=== PATIENT | male | born 1955 | race Caucasian/White ===

== ENCOUNTER 2016-05-07 23:44 | Observation (INO) ==
[2016-05-07] MEDS ORDERED: Aspirin 81 MG TAB.CHEW PO ONE (23:52)
[2016-05-08 00:07] LABS: Basophils # 0.1 K/mcL (0.0-0.2); Basophils % 0.6 %; Eosinophils # 0.7 K/mcL (0.0-0.6); Eosinophils % 6.8 %; Hematocrit 51.5 % (37.5-50.1); Hemoglobin 17.7 g/dL (12.9-16.9); Immature Granulocytes % 0.3 % (0-4); Lymphocytes # 2.4 K/mcL (0.6-4.6); Mean Corpuscular HGB Conc 34.4 g/dL (31.6-35.5); Mean Corpuscular Hemoglobin 32.1 pg (28.0-33.3); Mean Corpuscular Volume 93.5 fL (83.0-100.0); Mean Platelet Volume 9.9 fL (9.4-12.4); Monocytes # 1.1 K/mcL (0.0-1.3); Neutrophils # 5.4 K/mcL (1.6-8.9); Platelet Count 240 K/mcL (140-400); Red Blood Count 5.51 M/mcL (4.19-5.50); Red Cell Distribution Width 12.6 % (11.5-14.5); Segmented Neutrophils % 56.3 %
[2016-05-08 00:12] LABS: INR 1.1
[2016-05-08 00:14] LABS: Activated Partial Thrombo Time 32.6 Seconds (26.0-36.0)
[2016-05-08 00:18] LABS: BUN/Creatinine Ratio 18 (6-26); Blood Urea Nitrogen 21 mg/dL (8-26); Calcium 9.6 mg/dL (8.6-10.8); Carbon Dioxide 27 mEq/L (19-29); Chloride 102 mEq/L (98-109); Glucose 119 mg/dL (70-99); Osmolality,Calculated 294 (280-300); Potassium 3.5 mEq/L (3.5-4.5); Sodium 140 mEq/L (136-145); eGFR For African Americans > 60 (> 60); eGFR For Non-African Americans > 60 (> 60)
--- NOTE | 2016-05-08 00:50 | Emergency Department Note ---
Disposition Clinical Impression: New onset atrial fibrillation, Atrial fibrillation with rapid ventricular response Disposition: Admitted As Inpatient Condition: Fair Time of Disposition: 04:20 Chest Pain HPI - General Chief Complaint: ED Chest Pain Stated Complaint: CP/HOMERO Time Seen by Provider: 05/07/16 23:50 Source: patient, EMS Mode of arrival: EMS Limitations: no limitations Vital Signs Reviewed: Yes Nursing Notes Reviewed: Yes - History of Present Illness HPI Narrative: patient brought to the ED by EMS after having shortness of breath, heart racing , and chest pain at home. He states he put his home oxygen on around 9pm thinking this would help but he continued to have shortness of breath. States his chest felt like someone was sitting on top of him. States a few days ago he had a similar incident, thought maybe he had had a small stroke, but symptoms passed within 15 mins, and he did not seek medical attention. His heart rate has been elevated in the past, but he isn't sure the last episode. Pt complaint: chest pain, other (shortness of breath, elevated heart rate) Duration: gradually worsening Onset: during rest Pain Location: substernal Severity: severe Severity scale (1-10): 9 Quality: tightness, heaviness Pain Radiation: none Improves with: nothing Worsens with: exertion Associated symptoms: Reports: dyspnea Treatments prior to arrival chest pain: oxygen - Related Data Home Medications Medication Instructions Recorded Confirmed Albuterol Neb [Proventil Neb] 2.5 mg IH Q4HR PRN 11/16/14 05/04/15 Alprazolam [Xanax] 1 mg PO Q8H PRN 11/16/14 05/04/15 Aspirin Enteric Coated [Aspirin EC] 81 mg PO DAILY 11/16/14 05/04/15 Clopidogrel [Plavix] 75 mg PO DAILY 11/16/14 05/04/15 Furosemide [Lasix] 20 mg PO BID 11/16/14 05/04/15 Albuterol Sulfate [Albuterol 90 mcg IH Q4HR PRN 05/04/15 05/04/15 Inhaler] Hydrocodone/Acetaminophen [[place] 1 tab PO Q6H PRN 05/04/15 05/04/15 5-325 Tablet] Potassium Chloride [K-Tab ER] 10 meq PO DAILY 05/04/15 05/04/15 Previous Rx's Medication Instructions Recorded Ciprofloxacin [Cipro] 500 mg PO BID #20 tablet 10/01/15 MetroNIDAZOLE [Flagyl] 500 mg PO TID #30 tablet 10/01/15 Sulfamethoxazole/Trimeth DS 1 each PO BID #14 tablet 04/28/16 [Bactrim DS] Allergies Allergy/AdvReac Type Severity Reaction Status Date / Time Iodinated Contrast Media - Allergy Hives Verified 05/07/16 23:52 Oral and [Iodinated Contrast Media - IV Dye] All systems ED: reviewed and negative except as stated. Constitutional: Denies: fever, chills, weakness, weight change Cardiovascular: Reports: chest pain, palpitations, dyspnea on exertion, orthopnea Respiratory: Reports: cough, dyspnea Gastrointestinal: Denies: abdominal pain, nausea, vomiting, diarrhea, constipation, hematemesis, melena, hematochezia Neurological: Denies: headache, weakness, numbness, paresthesias, confusion, abnormal gait, vertigo Chest Pain PMH - Past Medical History Medical history: Reports: arthritis, cirrhosis, COPD, GERD, hypertension, peripheral artery disease Surgical history: Reports: cholecystectomy, vasectomy Psychiatric history: Reports: anxiety - Social History Smoking Status: Current every day smoker Alcohol use: Reports: none Drug use: Reports: none Physical Exam - General Limitations: no limitations General appearance: alert, in no apparent distress - Head Head exam: atraumatic, normocephalic, normal inspection - Eye Eye exam: Present: normal appearance, PERRL, EOMI - ENT ENT exam: normal exam, normal oropharynx, mucous membranes moist - Neck Neck exam: Present: normal inspection, full ROM, trachea midline - Chest Chest inspection: Present: normal inspection, symmetric chest wall rise - Respiratory Respiratory exam: Present: normal lung sounds bilaterally - Cardiovascular Cardiovascular exam: Present: regular rate, tachycardia, normal heart sounds. Absent: systolic murmur, diastolic murmur, JVD - Abdominal Exam Abdominal exam: Present: soft, Non-Tender. Absent: tenderness, distention, guarding, rebound, rigidity - Extremities Exam Extremities exam: Present: normal inspection, full ROM. Absent: tenderness, pedal edema - Back Exam Back exam: Present: normal inspection, full ROM. Absent: tenderness - Neurological Exam Neurological exam: Present: alert, oriented X3, CN II-XII intact, reflexes normal - Psychiatric Psychiatric exam: Present: normal affect, normal mood - Skin Skin exam: Present: warm, dry, intact, normal color Course - Reevaluation(s) Reevaluation #1: heart rate is 86-90 now after dose of Cardizem. He states he is feeling better. His blood pressure remains elevated, but the family states he routinely has elevated blood pressure. Time: 00:53 - Consultations Consultation #1: spoke with Dr. Srinivasan and he accepted patient as admission. Time: 01:39 Vital Signs Temperature 0 F L 05/07/16 23:46 Pulse Rate 175 05/07/16 23:46 Respiratory Rate 26 05/07/16 23:46 Blood Pressure 140/94 05/07/16 23:46 O2 Sat by Pulse Oximetry 97 05/07/16 23:46 Temperature 97.7 F 05/08/16 03:31 Pulse Rate 103 05/08/16 03:31 Respiratory Rate 17 05/08/16 03:31 Blood Pressure 136/85 05/08/16 03:31 O2 Sat by Pulse Oximetry 94 L 05/08/16 03:31 Oxygen Delivery Oxygen Delivery Nasal Cannula Chest Pain - Lab Data Result diagrams: 05/08/16 00:00 05/08/16 00:00 Lab Results 05/08/16 05/08/16 05/08/16 Range/Units 00:00 00:00 00:00 WBC 9.6 (4.3-11.1) K/mcL RBC 5.51 H (4.19-5.50) M/mcL Hgb 17.7 H (12.9-16.9) g/dL Hct 51.5 H (37.5-50.1) % MCV 93.5 (83.0-100.0) fL MCH 32.1 (28.0-33.3) pg MCHC 34.4 (31.6-35.5) g/dL RDW 12.6 (11.5-14.5) % Plt Count 240 (140-400) K/mcL MPV 9.9 (9.4-12.4) fL Immature Gran % 0.3 (0-4) % Seg Neutrophils % 56.3 % Lymphocytes % 25.0 % Monocytes % 11.0 % Eosinophils % 6.8 % Basophils % 0.6 % Neutrophils # 5.4 (1.6-8.9) K/mcL Lymphocytes # 2.4 (0.6-4.6) K/mcL Monocytes # 1.1 (0.0-1.3) K/mcL Eosinophils # 0.7 H (0.0-0.6) K/mcL Basophils # 0.1 (0.0-0.2) K/mcL PT 12.0 (9.4-12.1) Seconds INR 1.1 APTT 32.6 (26.0-36.0) Seconds Sodium 140 (136-145) mEq/L Potassium 3.5 (3.5-4.5) mEq/L Chloride 102 (98-109) mEq/L Carbon Dioxide 27 (19-29) mEq/L BUN 21 (8-26) mg/dL Creatinine 1.18 (0.72-1.25) mg/dL Est GFR ( Amer) > 60 (> 60) Est GFR (Non-Af Amer) > 60 (> 60) BUN/Creatinine Ratio 18 (6-26) Glucose 119 H (70-99) mg/dL Calculated Osmolality 294 (280-300) Calcium 9.6 (8.6-10.8) mg/dL Troponin I (0-0.03) ng/mL 05/08/16 Range/Units 00:00 WBC (4.3-11.1) K/mcL RBC (4.19-5.50) M/mcL Hgb (12.9-16.9) g/dL Hct (37.5-50.1) % MCV (83.0-100.0) fL MCH (28.0-33.3) pg MCHC (31.6-35.5) g/dL RDW (11.5-14.5) % Plt Count (140-400) K/mcL MPV (9.4-12.4) fL Immature Gran % (0-4) % Seg Neutrophils % % Lymphocytes % % Monocytes % % Eosinophils % % Basophils % % Neutrophils # (1.6-8.9) K/mcL Lymphocytes # (0.6-4.6) K/mcL Monocytes # (0.0-1.3) K/mcL Eosinophils # (0.0-0.6) K/mcL Basophils # (0.0-0.2) K/mcL PT (9.4-12.1) Seconds INR APTT (26.0-36.0) Seconds Sodium (136-145) mEq/L Potassium (3.5-4.5) mEq/L Chloride (98-109) mEq/L Carbon Dioxide (19-29) mEq/L BUN (8-26) mg/dL Creatinine (0.72-1.25) mg/dL Est GFR ( Amer) (> 60) Est GFR (Non-Af Amer) (> 60) BUN/Creatinine Ratio (6-26) Glucose (70-99) mg/dL Calculated Osmolality (280-300) Calcium (8.6-10.8) mg/dL Troponin I 0.01 (0-0.03) ng/mL Attestation Statement - Attestation Attestation: I, Wili Burns MD, personally performed a history and physical exam of the patient and discussed their management with the midlevel provicer, PAC/HOME SERVICE TECHNICIAN. I reviewed the midlevel provider's note and agree with the documented findings, medical decision making, and plan of care. 60-year-old male presents to the emergency department with a complaint of palpitations associated with shortness of breath and some tightness in his chest. Symptoms started earlier this evening. He denies any prior history of similar symptoms. No history of heart disease or heart attack. He denies congestive heart failure. He is a smoker. On arrival here the patient was found to be in atrial fibrillation with RVR. On examination patient is a well-developed well-nourished male in no acute distress. He is alert and oriented 3. There is no cyanosis or diaphoresis. Breath sounds are decreased but equal bilaterally. Heart regular rate and rhythm at time of my examination. Abdomen soft and nontender with normal bowel sounds. Initial EKG showed atrial fibrillation with RVR with a heart rate of 175. Patient converted spontaneously to normal sinus rhythm but Going back and forth from sinus rhythm to atrial fibrillation with RVR. He was started on a Cardizem infusion and has remained in sinus rhythm still having PACs. Labs reviewed. Chest x-ray negative. The hospitalist, Dr. Srinivasan, was consulted and accepted admission of the patient.
[2016-05-08] MEDS ORDERED: Nicotine 7 MG PATCH.TD24 TD ONE (01:41)
[2016-05-08] MEDS ORDERED: Mag Hydrox/Al Hydrox/Simeth 30 ML UDC PO PRN (02:44)
[2016-05-08] MEDS ORDERED: *HR* Metoprolol 5 MG/5 ML VIAL IVP PRN (02:44)
[2016-05-08] MEDS ORDERED: *HR* Morphine 2 MG/ML SYRINGE IVP PRN ×2 (02:44→03:05)
[2016-05-08] MEDS ORDERED: Acetaminophen 325 MG TABLET PO PRN (02:44)
[2016-05-08] MEDS ORDERED: Ondansetron 4 MG/2 ML VIAL IVP PRN (02:44)
[2016-05-08] MEDS ORDERED: Naloxone 0.4 MG/ML INJ IVP PRN (02:44)
[2016-05-08] MEDS ORDERED: 0.9 % Sodium Chloride 1,000 ML IVC SCH (02:45)
[2016-05-08] MEDS ORDERED: ALPRAZolam 1 MG TABLET PO PRN (02:58)
[2016-05-08] MEDS ORDERED: Benzonatate 100 MG CAPSULE PO PRN (03:01)
[2016-05-08] MEDS ORDERED: Nitroglycerin 0.4 MG TAB.SUBL SL PRN (03:01)
--- NOTE | 2016-05-08 03:12 | Internal Med History&Physical ---
Date of Encounter: 05/08/16 Time of Encounter: 03:00 Assessment and Plan (1) Chest pain, rule out acute myocardial infarction Status: Acute . (2) Chest pain with moderate risk of acute coronary syndrome Status: Acute . (3) Acute respiratory failure Status: Acute . Qualifiers: Respiratory failure complication: unspecified whether with hypoxia or hypercapnia Qualified Code(s): J96.00 - Acute respiratory failure, unspecified whether with hypoxia or hypercapnia (4) New onset atrial fibrillation Status: Acute . (5) Atrial fibrillation with rapid ventricular response Status: Acute . (6) Chronic respiratory failure with hypoxia Status: Chronic . (7) BASIA (generalized anxiety disorder) Status: Chronic . (8) Hypertension Status: Chronic . Qualifiers: Hypertension type: essential hypertension Qualified Code(s): I10 - Essential (primary) hypertension (9) Dyslipidemia Status: Chronic . (10) Nicotine dependence with nicotine-induced disorder Status: Chronic . Qualifiers: Nicotine product type: cigarettes Qualified Code(s): F17.219 - Nicotine dependence, cigarettes, with unspecified nicotine-induced disorders (11) Obesity (BMI 30-39.9) Status: Chronic . (12) Erythrocytosis Status: Acute . (13) Retroperitoneal lymphadenopathy Status: Chronic . (14) COPD (chronic obstructive pulmonary disease) Status: Chronic . Qualifiers: COPD type: emphysema Emphysema type: panlobular Qualified Code(s): J43.1 - Panlobular emphysema (15) PAD (peripheral artery disease) Status: Chronic . Internal Medicine - H&P: HPI Chief complaint: Chest pain. Difficulty breathing. Admitted From: Emergency Dept Plans for Post Hospital Care: Home History of present illness: Mr. Aquino is a 60 year old male with significant history for peripheral vascular disease, PAD with claudication/s/p aortoilio-bifemoral bypass, hypertention, dyslipidemia, COPD-emphysema, chronic respiratory failure continuous oxygen dependent, generalized anxiety/panic attacks, osteoarthritis, osteopenia, chronic sinusitis, allergic rhinitis, H/O DVT, remote H/O alcoholism x10yrs+/-abstnent, ?alcohol induced cirrhotic liver disease, H/O atrial arrhythmias/syncope, BPH/prostatism, obesity, nicotine dependency The patient was visited and interviewed and examined. The patient is admitted to [facility] via the emergency department when he presents from home by EMS services with complaints of acute onset of chest pain associated with shortness of breath and racing heart and he began to feel increased short of breath as the evening progressed and at the [place] 9 PM placed his nasal cannula 2-3 L/m taking the oxygen would help. He continued to have however a shortness of breath. As his respiratory effort became more labored he began to experienced chest pain. This felt as if someone was sitting on top of his chest. He had experienced a similar episode of pressure- like chest discomfort approximately 5 days earlier. It was severe and lasted for a short time in the past completely within 15 minutes. He uncertain what was occurring but the thought due to the generalized weakness that he might of been experiencing a small stroke. With no residual complaints felt he did not seek Medical attention. The malaise seemed to linger however through the week. Patient acknowledges known chronic respiratory failure, oxygen dependency. He was at his usual baseline status until the evening prior to admission. He had experienced rapid heart rates in the past and undergone EKGs analysis which had captured supra ventricular premature atrial complexes and atrial tachycardias. His intervention had been pursued in relationship to that. His primary emphasis had been on his symptomatic peripheral artery disease which was quite consuming. Ashleigh's event of chest pain occurred while at rest and was substernally rated the severity of it as a 9-10/10 tightness heaviness. Nothing seemed to improve but nothing seemed to expedite its resolution. This seemed to worsen however with any exertion. Findings in the ED: Telemetry disclosed A.fib-RVR at a heart rate in excess of 160 bpm. Intravenous Cardizem loading dose promptly given followed by initiation of Cardizem drip. Heart rate responded to 80-90 beats....Temperature was afebrile heart rate 83-175 respiration 18-26 BP 140-145/90-94 O2 saturation 97% 2 L per nasal cannula. WBC 9.6 hemoglobin 17.7 hematocrit 51.5 platelets 240,000. Differential normal. The slight increase in eosinophil count noted) PT 12 INR 1.1 PTT 32.6. Metabolic panel normal BUN 21 creatinine 1.18. Glucose was 119 with an osmolality of 294. Troponin 0.01. Chest x-ray demonstrated no acute or active cardiopulmonary process. Preliminary impression suggest acute, new onset atrial fibrillation with rapid ventricular response. Apparently unprovoked. Systemic inflammatory response is present at time of admission. No evidence for focal infection or sepsis. No significantly evident electrolyte derangements. Initial troponin normal. Given significant history of PAD he is at increased risk for further clinical decline and morbidity in this setting and his associated comorbidities. Workup and treatments will proceed comprehensively. Cumulative laboratory and radiographic data base was reviewed, considered and discussed. Pertinent ancillary medical records including ECW and PCI documentation, when available was reviewed and considered. Given the patient's presenting concerns, past medical history, clinical findings and symptoms, he is admitted at this time will undergo further evaluation and disposition. Orders were written as per the computerized physician food service order clerk system.......................................................................... .................... Consultative opinion and will be sought as clinical circumstances justify. Initial consultative opinion has been requested of cardiology Pain management needs will be addressed. Laboratory and radiographic data base will be updated as appropriate. Studies include: PT, PTT, CPK, cardiac injury panel, BNP, metabolic and hematologic panel, magnesium, phosphorus, ionized calcium, thyroid panel, lipid profile, A1c , C-peptide, CRP, sedimentation rate, blood gas, lactic acid, UDS, UA, serologies, etc. Precautions: Aspiration, fall, delirium protocol/surveillance initiated. Telemetry with continuous hemodynamic monitoring and pulse oximetry initiated. Special studies: CT chest, chest x-ray, telemetry, EKG, echocardiogram. Pulmonary toilet: Incentive spirometry, aerosol bronchodilator, mucolytic, antitussive, supplemental oxygen. Corticosteroid therapy when necessary. CPAP/ BiPAP supplemental oxygen delivery when necessary. Aerosol Mucomyst therapy when necessary. Fluid and electrolyte repletion efforts will proceed. Careful attention to fluid balance and renal recovery will be emphasized. Avoidance of nephrotoxic exposure and adverse drug drug interaction in the setting of impaired renal function will be monitored closely. Acute coronary syndrome protocol/surveillance initiated. Aspirin, beta jaimee , statin, ARISTEO inhibitor. When necessary nitrates. When necessary morphine. Supplemental oxygen. Subcutaneous Lovenox. DVT and PUD prophylaxis initiated: PPI therapy, intermittent pneumatic cuffs/ TEDs. Subcutaneous heparin/Lovenox. Early ambulation will be encouraged. Immunization updates recommended. Influenza and pneumococcal vaccinations as part of ongoing preventative healthcare recommendations strongly recommended. Smoking cessation counseling briefly addressed. Patient accepts nicotine substitute during this hospitalization. Advanced care directive discussion briefly addressed. Patient does not declare any healthcare restrictions at this time. Cardiovascular risk appraisal and cardiovascular risk reduction efforts will be emphasized. Physical /occupational therapy may be consulted to evaluate patient's function capacity and progress mobility if circumstances justify. Nutrition/dietary education counseling may be considered as circumstances justify. Outpatient medication schedules will be reviewed confirmed and facilitated as appropriate. Reconciliation of home treatments including adjustments, substitutions and reintroduction into the treatment regimen will address necessary maintenance therapies for chronic pre-existing medical conditions. Plan of care has been reviewed and discussed in detail with the patient. Questions addressed. Hospital course to be dependent upon clinical findings, treatment response and potential consultative interventions. Patient is at risk for further acute clinical decline and morbidity due to his presenting chief complaints, findings and comorbidities. Condition is serious. Prognosis is guarded. CODE STATUS is full. Past Med Surg Social Fam HX - Past Medical History Source: old records reviewed Medical history: arthritis, cirrhosis, COPD, DVT, GERD, hyperlipidemia, hypertension, liver disease, osteoporosis, peripheral artery disease, SVT, syncope, other Psychiatric history: anxiety, panic disorder, other - Past Surgical History Surgical History: cholecystectomy, herniorrhaphy, orthopedic, other ( Percutaneous reduction and internal fixation Lisfranc dislocation fracture left foot), sinus surgery (Tympanoplasty/enterostomy tubes. Bilateral sinus surgery. ), vascular surgery (Aortobifemoral bypass graft), vasectomy, other - Social History Smoking Status: Current every day smoker Packs per day: 0.5ppd (previously smoked 2-3ppd x30yrs)(~50yrs total smoking hx) Smokeless Tobacco Status: No Alcohol use: rarely (Remote history of alcoholism approximately 10 years. Now with rare intake for last 15 years.) Drug use: none Occupational status: employed Current living situation: With Family Activity Level: Independent ambulation, Mostly sedentary Recent Out of Country Travel Within the Last 8 Weeks: No Exposure or Possible Exposure to Illness During Travel: No - Family History Mother History Unknown: Yes Age at : 89 Father Age at : 70 Cause of : circulation problems Internal Medicine - H&P: Meds Alprazolam [Xanax] 1 mg PO Q8H PRN 11/16/14 [History] Aspirin Enteric Coated [Aspirin EC] 81 mg PO DAILY 11/16/14 [History] Furosemide [Lasix] 20 mg PO BID 11/16/14 [History] Hydrocodone/Acetaminophen [[place] 5-325 Tablet] 1 tab PO Q6H PRN 05/04/15 [ History] Albuterol Neb [Proventil Neb] 2.5 mg IH [id number] inhsol 05/09/16 [Rx] Carvedilol [Coreg] 6.25 mg PO BIDWM #60 tablet 05/09/16 [Rx] Lisinopril [Zestril] 2.5 mg PO DAILY #30 tablet 05/09/16 [Rx] Nicotine Patch [Nicoderm] 7 mg TD DAILY #30 patch.td24 05/09/16 [Rx] Simvastatin [Zocor] 40 mg PO HS #30 tablet 05/09/16 [Rx] Warfarin [Coumadin] 5 mg PO 1800 #30 tablet 05/09/16 [Rx] Allergies Iodinated Contrast Media - Oral and [Iodinated Contrast Media - IV Dye] Allergy (Verified 05/08/16 14:36) Hives All Systems PM: A 10-system review of systems was performed and is negative for pertinent findings except as documented above in the HPI. - Constitutional Constitutional: as per HPI, malaise, no chills, no fever(s), no night sweats - EENT Eyes: as per HPI, no change in vision, no discharge, no pain, no photophobia Ears: as per HPI, no ear discharge, no ear pain, no tinnitus Nose, mouth and throat: as per HPI, no dysphagia, no nasal discharge, no neck pain, no sore throat - Cardiovascular Cardiovascular ROS IM: as per HPI, chest pain, claudication, dyspnea, edema, lightheadedness, palpitations, no diaphoresis, no syncope - Respiratory Respiratory: as per HPI, dyspnea, no cough, no wheezing, no excessive phlegm production - Gastrointestinal Gastrointestinal: as per HPI, no abdominal pain, no diarrhea, no hematemesis, no hematochezia, no melena, no nausea, no vomiting - Genitourinary Genitourinary ROS male: as per HPI, no difficulty urinating, no dysuria, no hematuria - Musculoskeletal Musculoskeletal ROS IM: as per HPI, no numbness, no tingling - Integumentary Integumentary IM: as per HPI, no rash, no unusual bruising - Neurological Neurological ROS: as per HPI, no confusion, no convulsions, no focal weakness, no numbness, no tingling, no tremor(s) - Psychiatric Psychiatric: as per HPI - Endocrine Endocrine IM: as per HPI - Hematologic/Lymphatic Hematologic/Lymphatic: as per HPI, no easy bruising - Allergic/Immunologic Allergic/Immunologic: as per HPI - Constitutional Vitals: Temp Pulse Resp BP Pulse Ox 0 F L 83 18 138/84 97 05/07/16 23:46 05/08/16 02:03 05/08/16 02:39 05/08/16 02:39 05/08/16 02:03 General appearance: Present: mild distress, A&O X 3, morbidly obese, answers questions appropriately - Head Head exam: Present: atraumatic, normocephalic - Eye Eye exam: Present: EOMI, PERRL, conjuntiva pink, sclera anicteric Pupils: Present: normal accommodation, PERRL - ENT ENT exam: Present: mucous membranes moist, normal oropharynx - Neck Neck exam general surgery: Present: supple, trachea midline. Absent: lymphadenopathy - Respiratory Respiratory exam: Present: chest wall tenderness, decreased breath sounds, CTAB. Absent: rales, rhonchi, wheezes - Cardiovascular Cardiovascular exam: Present: distant heart sounds, irregular rhythm, +S1, +S2, tachycardia. Absent: diastolic murmur, gallop, rubs, systolic murmur - GI/Abdominal GI/Abdominal exam: Present: normal bowel sounds, soft, no peritoneal signs. Absent: distended, tenderness - Extremities Exam Extremities exam: Present: full ROM, warm, radial pulses palpable and symetrical. Absent: calf tenderness, cyanotic, pedal edema - Neurological Exam Neurological exam: Present: alert, CN II-XII intact, oriented X3, no focal deficits. Absent: pronater drift, facial droop, speech deficit - Psychiatric Psychiatric exam: Present: anxious, normal affect, normal mood - Skin Skin exam: Present: dry, intact, warm. Absent: petechiae, rash, urticaria, vesicles Internal Med - H&P Results - Labs CBC & Chem 7: 05/09/16 04:35 05/09/16 04:35 - Impressions Vital Signs Temp Pulse Resp BP Pulse Ox 05/08/16 02:39 18 138/84 05/08/16 02:03 83 18 145/90 97 05/08/16 00:54 91 20 138/92 96 05/08/16 00:02 101 24 118/90 97 05/07/16 23:46 0 F L 175 26 140/94 97 Intake and Output 05/07/16 05/07/16 05/08/16 15:59 23:59 07:59 Other: Weight 97.522 kg Short CBC 05/08/16 Range/Units 00:00 WBC 9.6 (4.3-11.1) K/mcL Hgb 17.7 H (12.9-16.9) g/dL Hct 51.5 H (37.5-50.1) % Plt Count 240 (140-400) K/mcL Neutrophils # 5.4 (1.6-8.9) K/mcL BMP 05/08/16 Range/Units 00:00 Sodium 140 (136-145) mEq/L Potassium 3.5 (3.5-4.5) mEq/L Chloride 102 (98-109) mEq/L Carbon Dioxide 27 (19-29) mEq/L BUN 21 (8-26) mg/dL Creatinine 1.18 (0.72-1.25) mg/dL Glucose 119 H (70-99) mg/dL Calcium 9.6 (8.6-10.8) mg/dL Cardiac Enzymes 05/08/16 Range/Units 00:00 Troponin I 0.01 (0-0.03) ng/mL Abnormal lab results RBC 5.51 M/mcL (4.19-5.50) H 05/08/16 00:00 Hgb 17.7 g/dL (12.9-16.9) H 05/08/16 00:00 Hct 51.5 % (37.5-50.1) H 05/08/16 00:00 Eosinophils # 0.7 K/mcL (0.0-0.6) H 05/08/16 00:00 Glucose 119 mg/dL (70-99) H 05/08/16 00:00 Allergies Allergy/AdvReac Type Severity Reaction Status Date / Time Iodinated Contrast Media - Allergy Hives Verified 05/07/16 23:52 Oral and [Iodinated Contrast Media - IV Dye] Laboratory Results WBC 9.6 K/mcL (4.3-11.1) 05/08/16 00:00 RBC 5.51 M/mcL (4.19-5.50) H 05/08/16 00:00 Hgb 17.7 g/dL (12.9-16.9) H 05/08/16 00:00 Hct 51.5 % (37.5-50.1) H 05/08/16 00:00 MCV 93.5 fL (83.0-100.0) 05/08/16 00:00 MCH 32.1 pg (28.0-33.3) 05/08/16 00:00 MCHC 34.4 g/dL (31.6-35.5) 05/08/16 00:00 RDW 12.6 % (11.5-14.5) 05/08/16 00:00 Plt Count 240 K/mcL (140-400) 05/08/16 00:00 MPV 9.9 fL (9.4-12.4) 05/08/16 00:00 Immature Gran % 0.3 % (0-4) 05/08/16 00:00 Seg Neutrophils % 56.3 % 05/08/16 00:00 Lymphocytes % 25.0 % 05/08/16 00:00 Monocytes % 11.0 % 05/08/16 00:00 Eosinophils % 6.8 % 05/08/16 00:00 Basophils % 0.6 % 05/08/16 00:00 Neutrophils # 5.4 K/mcL (1.6-8.9) 05/08/16 00:00 Lymphocytes # 2.4 K/mcL (0.6-4.6) 05/08/16 00:00 Monocytes # 1.1 K/mcL (0.0-1.3) 05/08/16 00:00 Eosinophils # 0.7 K/mcL (0.0-0.6) H 05/08/16 00:00 Basophils # 0.1 K/mcL (0.0-0.2) 05/08/16 00:00 PT 12.0 Seconds (9.4-12.1) 05/08/16 00:00 INR 1.1 05/08/16 00:00 APTT 32.6 Seconds (26.0-36.0) 05/08/16 00:00 Sodium 140 mEq/L (136-145) 05/08/16 00:00 Potassium 3.5 mEq/L (3.5-4.5) 05/08/16 00:00 Chloride 102 mEq/L (98-109) 05/08/16 00:00 Carbon Dioxide 27 mEq/L (19-29) 05/08/16 00:00 BUN 21 mg/dL (8-26) 05/08/16 00:00 Creatinine 1.18 mg/dL (0.72-1.25) 05/08/16 00:00 Est GFR ( Amer) > 60 (> 60) 05/08/16 00:00 Est GFR (Non-Af Amer) > 60 (> 60) 05/08/16 00:00 BUN/Creatinine Ratio 18 (6-26) 05/08/16 00:00 Glucose 119 mg/dL (70-99) H 05/08/16 00:00 Calculated Osmolality 294 (280-300) 05/08/16 00:00 Calcium 9.6 mg/dL (8.6-10.8) 05/08/16 00:00 Troponin I 0.01 ng/mL (0-0.03) 05/08/16 00:00 Impressions Chest X-Ray 05/07/16 23:52 IMPRESSION: Negative portable chest. D/ / Bubba Zepeda MD / Bubba Zepeda MD Interpreting Provider: Bubba Zepeda MD
[2016-05-08 04:35] LABS: VBG HCO3 28.5 mEq/L (21-27); VBG PH 7.4 pH Units (7.32-7.42)
[2016-05-08 04:37] LABS: Hemoglobin A1C 5.2 %
[2016-05-08 04:43] LABS: Alanine Aminotransferase 34 Units/L (0-55); Albumin 3.7 g/dL (3.5-5.0); Alkaline Phosphatase 62 Units/L (38-126); Aspartate Amino Transferase 24 Units/L (5-34); Bilirubin,Direct 0.1 mg/dL (0.0-0.5); Bilirubin,Indirect 0.5 mg/dL (0.0-1.2); Bilirubin,Total 0.6 mg/dL (0.2-1.2); Chol/HDL Ratio 9.7 (0-4.9); Cholesterol 251 mg/dL (< 200); Globulin 3.8 g/dL (2.4-3.5); HDL Cholesterol 26 mg/dL (40-59); Magnesium 2.1 mg/dL (1.6-2.6); Phosphorous 4.2 mg/dL (2.3-4.7); Total Protein 7.5 g/dL (6.0-8.3); Triglycerides 562 mg/dL (< 150)
[2016-05-08 04:51] LABS: Ionized Calcium 1.13 mmol/L (1.15-1.35)
[2016-05-08 05:02] LABS: Thyroid Stimulating Hormone 1.537 mcIU/mL (0.350-4.840)
[2016-05-08] MEDS: Ipratropium/Albuterol Neb 3 ML IH SCH ×4 (05:08→22:53)
[2016-05-08] MEDS: Albuterol 2.5 MG/3 ML NEBULIZER IH SCH ×6 (05:09→23:34)
[2016-05-08] MEDS: *HR* OxyCODONE Immed Rel 5 MG TABLET PO PRN ×2 (05:54→18:38)
[2016-05-08 05:58] LABS: Amphetamine Screen,Urine Negative ng/mL (Cutoff=1000); Barbiturate Screen,Urine Negative ng/mL (Cutoff=200); Benzodiazepines Screen,Urine Positive ng/mL (Cutoff=200); Cannabinoid Screen,Urine Negative ng/mL (Cutoff = 50); Cocaine Screen,Urine Negative ng/mL (Cutoff= 300); Opiate Screen,Urine Positive ng/mL (Cutoff=300); Phencyclidine Screen,Urine Negative ng/mL (Cutoff=25)
[2016-05-08] MEDS ORDERED: Calcium Gluconate 2,000 MG in D5% in Water 100 ML IVPB ONE (07:23)
--- NOTE | 2016-05-08 08:30 | Cardiology Consult Note ---
Date of Encounter: 05/08/16 Time of Encounter: 08:30 Assessment and Plan (1) New onset atrial fibrillation Current Visit: Yes Status: Acute Per Cardiology: Apparent new onset atrial fibrillation. Patient denies any past history of atrial fibrillation. Patient on IV Cardizem drip at 5 mg per hour and converted back to sinus rhythm. Average heart rate on telemetry 74. One brief episode of paroxysmal atrial fibrillation noted. Troponins negative 2. Electrolytes stable. TSH within normal limits. Echo pending. Patient with significant vascular disease and no cardiac ischemic evaluation recently. Discussed and reviewed with Dr. Donovan, proceed with nonexercise nuclear stress test. Further recommendations pending echo and stress test. Will discontinue IV Cardizem drip. Has been already started on Coreg 3.125 mg by mouth twice a day, will increase to 6.25 mg by mouth twice a day. Systolic blood pressure stable. Continue to monitor telemetry. Of note has IVP allergy. Re: Long-term anticoagulation, [id number] = (4?-- Reported history of hypertension, however patient denies; recorded history of DVT, however patient denies). Somewhat of a poor historian. Further recommendations regarding long- term anticoagulation to be made once echo and stress test completed. On subcutaneous heparin only. Currently in sinus rhythm. (2) Chest pain, rule out acute myocardial infarction Current Visit: Yes Status: Acute Per Cardiology: Atypical chest pain that occurred at rest and in the setting of A. fib with RVR , however patient with significant risk factors has not had cardiac evaluation in the past. Discussed with Dr. Donovan, will proceed with nonexercise nuclear stress test. Again echo pending as well. Currently on aspirin as outpatient, reports has not been taking Plavix due to cost constraints. Currently on aspirin , Plavix, statin, ARISTEO inhibitor, and beta jaimee. Current LFTs stable. Previous hematology/oncology note reviewed from November 2014 and patient with apparent alcohol-induced cirrhosis. Recommend monitor closely with statin. (3) Chronic respiratory failure with hypoxia Current Visit: Yes Status: Chronic Per Cardiology: History of COPD with significant nicotine abuse. Utilizes oxygen at home. Clinically stable on exam. (4) Nicotine dependence with nicotine-induced disorder Current Visit: Yes Status: Chronic Per Cardiology: Smokes one pack per day for 30 years, recently smoking 3 packs per day since June 2015 with passing of his . cessation encouraged. Smoking cessation encouraged. Qualifiers: Nicotine product type: cigarettes Qualified Code(s): F17.219 - Nicotine dependence, cigarettes, with unspecified nicotine-induced disorders (5) PAD (peripheral artery disease) Current Visit: Yes Status: Chronic Per Cardiology: Known history of PAD with left common femoral to [id number] popliteal artery bypass, aorto iliac and deep femoral artery thrombectomy, and left common and deep femoral artery in arterectomy April 2015. Follows with vascular surgery. On aspirin, Plavix, statin currently. (6) Cirrhosis of liver not due to alcohol Current Visit: No Status: Acute Per Cardiology: History of alcohol abuse with suspected alcohol induced cirrhosis review of previous records. Monitor LFTs closely with statin therapy. Discussion w patient/family: The assessment and plan as outlined above was discussed with the patient who expressed understanding and agreement. All questions were answered. Thank you for involving us in the care of your patient. Please call with any questions. History of Present Illness Consult date: 05/08/16 Requesting physician: Tod Andrews Consult reason: New afib Chief complaint: Palpitations, chest tightness History of present illness: Mr. Aquino is a 60 year old male with significant history for peripheral vascular disease, PAD with claudication/s/p aortoilio-bifemoral bypass, dyslipidemia, COPD-emphysema, chronic respiratory failure continuous oxygen dependent, generalized anxiety/panic attacks, H/O DVT, remote H/O alcoholism x10yrs+/-, ?alcohol induced cirrhotic liver disease, obesity, nicotine dependency. Patient reports history evening he returned home from [employer] and went to lay down and developed sudden onset of rapid thumping sensations in his chest. He reports worsening short of breath than normal for him. Reports also chest heaviness during this episode. Reports symptoms are now resolved. He denies any symptoms prior to this event. Denies any recent infectious process. As any known history of atrial fibrillation or coronary artery disease. Reports last heart catheterization many years ago and denies any history of stents. He denies any active bleeding or blood loss. Denies any falls. Reports smokes one pack per day for 30 years, however currently smoking 3 packs per day since June of last year when his . Reports utilizes oxygen at home majority of the time for COPD. Past Med Surg Social Fam HX - Past Medical History Attestation: Yes The following information was validated with the patient. Source: patient, old records reviewed Medical history: arthritis, cirrhosis, COPD, GERD, hypertension, peripheral artery disease Psychiatric history: anxiety - Past Surgical History Surgical History: cholecystectomy, vasectomy - Social History Smoking Status: Current every day smoker Packs per day: 0.5ppd (previously smoked 2-3ppd x30yrs)(~50yrs total smoking hx) Smokeless Tobacco Status: No Alcohol use: none Drug use: none - Family History Mother History Unknown: Yes Age at : 89 Father Age at : 70 Cause of : circulation problems Medications and Allergies Albuterol Neb [Proventil Neb] 2.5 mg IH Q4HR PRN 11/16/14 [History] Alprazolam [Xanax] 1 mg PO Q8H PRN 11/16/14 [History] Aspirin Enteric Coated [Aspirin EC] 81 mg PO DAILY 11/16/14 [History] Clopidogrel [Plavix] 75 mg PO DAILY 11/16/14 [History] Furosemide [Lasix] 20 mg PO BID 11/16/14 [History] Albuterol Sulfate [Albuterol Inhaler] 90 mcg IH Q4HR PRN 05/04/15 [History] Hydrocodone/Acetaminophen [[place] 5-325 Tablet] 1 tab PO Q6H PRN 05/04/15 [ History] Potassium Chloride [K-Tab ER] 10 meq PO DAILY 05/04/15 [History] Ciprofloxacin [Cipro] 500 mg PO BID #20 tablet 10/01/15 [Rx] MetroNIDAZOLE [Flagyl] 500 mg PO TID #30 tablet 10/01/15 [Rx] Sulfamethoxazole/Trimeth DS [Bactrim DS] 1 each PO BID #14 tablet 04/28/16 [Rx] Allergies Iodinated Contrast Media - Oral and [Iodinated Contrast Media - IV Dye] Allergy (Verified 05/07/16 23:52) Hives All Systems Review: A 10-system review of systems was performed and is negative for pertinent findings except as documented above in the HPI. - Cardiovascular Cardiovascular: as per HPI, chest pain at rest, dyspnea at rest, dyspnea on exertion, palpitations, rapid heart rate - Respiratory Respiratory: dyspnea Physical Examination Vital Signs, Last 4 Hours Temp Pulse Resp BP Pulse Ox 05/08/16 07:35 97.8 F 70 16 132/74 96 05/08/16 05:08 16 93 L Selected Entries 05/07/16 23:46 05/08/16 00:02 05/08/16 02:39 Pulse Rate 175 101 Blood Pressure 140/94 138/84 05/08/16 07:35 Pulse Rate 70 Blood Pressure 132/74 General: Conversant HEENT: Atraumatic, Normocephaly, Mucus Membranes Moist Cardiac: Reg Rate and Rhythm, Normal S1 and S2, No Murmur Lungs: Other (CAD or rhonchi to bilateral bases, conversational dyspnea noted) Neuro: Alert and responsive, No focal deficits noted Skin: No rashes noted on visualized skin Musculoskeletal: No Chest Wall Tenderness Extremities: Other (Left leg +1-2 nonpitting edema-- he reports chronic) Results 05/08/16 00:00 05/08/16 00:00 Lab Results Laboratory Tests 05/08/16 05/08/16 05/08/16 00:00 00:00 04:05 INR 1.1 Magnesium AST ALT Troponin I 0.01 0.02 B-Natriuretic Peptide Triglycerides TSH Urine Opiates Screen U Benzodiazepines Scrn 05/08/16 05/08/16 05/08/16 04:05 04:05 05:40 INR Magnesium 2.1 AST 24 ALT 34 Troponin I B-Natriuretic Peptide 27 Triglycerides 562 H TSH 1.537 Urine Opiates Screen Positive H U Benzodiazepines Scrn Positive H ITS Impressions Chest X-Ray 05/07/16 23:52 IMPRESSION: Negative portable chest. D/ / Bubba Zepeda MD / Bubba Zepeda MD Interpreting Provider: Bubba Zepeda MD Active Medications Acetaminophen (Tylenol) 650 mg PO Q6HR PRN PRN Reason: Mild Pain (1-3) Stop: 11/07/16 02:45 Al Hydrox/Mg Hydrox/Simethicone (Maalox) 15 ml PO Q6HR PRN PRN Reason: Dyspepsia Stop: 11/07/16 02:45 Albuterol Sulfate (Proventil Neb) 2.5 mg IH [id number] FLO PRN Reason: Protocol Stop: 11/07/16 04:01 Last Admin: 05/08/16 08:00 Dose: Not Given Albuterol/Ipratropium (Duoneb) 3 ml IH QIDR [facility] Stop: 11/07/16 05:01 Last Admin: 05/08/16 05:08 Dose: 3 ml Alprazolam (Xanax) 1 mg PO Q8H PRN; Protocol PRN Reason: Anxiety Stop: 11/07/16 02:59 Aspirin (Aspirin) 81 mg PO DAILY [facility] Stop: 11/07/16 09:01 Benzonatate (Tessalon) 200 mg PO TID PRN PRN Reason: Cough Stop: 11/07/16 03:02 Carvedilol (Coreg) 3.125 mg PO BIDWM [facility] Stop: 11/07/16 08:01 Clopidogrel Bisulfate (Plavix) 75 mg PO DAILY [facility] Stop: 11/07/16 09:01 Docusate Sodium (Colace) 100 mg PO BID [facility] Stop: 11/07/16 09:01 Guaifenesin (Mucinex) 600 mg PO BID [facility] Stop: 11/07/16 09:01 Heparin Sodium (Porcine) (Heparin) 5,000 unit SQ Q8HCO [facility] Stop: 11/07/16 07:01 Diltiazem HCl 125 mg/ Dextrose 125 mls @ 10 mls/hr IVC .[id number] [facility] PRN Reason: 10 MG/HR Stop: 11/07/16 00:16 Last Admin: 05/08/16 00:50 Dose: 5 mg/hr, 5 mls/hr Sodium Chloride (0.9 % Sodium Chloride) 1,000 mls @ 50 mls/hr IVC .Q20H [facility] Stop: 11/07/16 02:46 Last Admin: 05/08/16 03:44 Dose: 50 mls/hr Lisinopril (Zestril) 2.5 mg PO DAILY [facility] Stop: 11/07/16 09:01 Metoprolol Tartrate (Lopressor) 5 mg IVP Q6HR PRN PRN Reason: SEE COMMENTS Stop: 11/07/16 02:45 Morphine Sulfate (Morphine Sulfate) 4 mg IVP Q2H PRN PRN Reason: Severe Pain (7-10) Stop: 11/07/16 02:45 Naloxone HCl (Narcan) 0.4 mg IVP Q2MIN PRN PRN Reason: Opioid Reversal Stop: 11/07/16 02:45 Nitroglycerin (Nitroglycerin) 0.4 mg SL Q5MIN PRN PRN Reason: Chest Pain Stop: 11/07/16 03:02 Omeprazole (Prilosec) 40 mg PO DAILY@0630 FLO PRN Reason: Protocol Stop: 11/07/16 06:31 Last Admin: 05/08/16 05:35 Dose: 40 mg Ondansetron HCl (Zofran) 4 mg IVP Q6HR PRN PRN Reason: Nausea And Vomiting Stop: 11/07/16 02:45 Oxycodone HCl (Roxicodone) 10 mg PO Q6HR PRN PRN Reason: Moderate Pain (4-6) Stop: 11/07/16 02:45 Last Admin: 05/08/16 05:54 Dose: 10 mg Simvastatin (Zocor) 40 mg PO HS [facility] Stop: 11/07/16 21:01 - Imaging and Cardiology Chest Xray: report reviewed Stress Test: pending Echo: pending - EKG Interpretation EKG results cardiology: personally reviewed (A. fib with RVR in the 170s), other (24 hour times reviewed with average heart rate 74, sinus rhythm, occasional PVCs, and brief paroxysmal A. fib episodes noted, currently sinus rhythm on telemetry) Consult Discharge Plan - Plan Referrals: Anjel Austin MD [Primary Care Provider] - 05/15/16 9:45 am
[2016-05-08] MEDS: Aspirin 81 MG TAB.CHEW PO SCH (09:19)
[2016-05-08] MEDS: *HR* Heparin 5,000 UNIT/ML VIAL SQ SCH ×2 (09:19→13:19)
--- NOTE | 2016-05-08 11:54 | ECHO - Doppler Report ---
Echocardiogram Name: Sonny Aquino Date of Study: 05/08/2016 Date: 1955 Ht: 68.0 in Medical Record#: [id number] Age: 60 Wt: 212.0 lb Gender: Male BSA: 2.1 Order #: [id number] Location: [facility] Room #: 2NE30 Reading Physician: Georges Santana DO, ILZ, EMIL BESS Mental [facility] Program Specialist: Stephanie Lugo Ordering Physician: Tod Andrews MD Primary Physician: Anjel Austin MD Indications: Aortic dissection Impressions: LVEF 60-65%. Normal LV chamber size and function. Mild concentric left ventricular hypertrophy. Mild left ventricular diastolic dysfunction. Normal right ventricular structure and function. No evidence of pulmonary hypertension identified. RVSP was not well obtained due to poor TR jet. No significant valvular dysfunction. Aortic root appeared normal in size. Study quality inadequate to evaluate for dissection. Consider LYLA or CTA if clinically indicated. Findings: Study Quality * Technically adequate exam. ECG Findings * Normal sinus rhythm. Left Ventricle * LVEF 60-65%. * Normal LV chamber size and function. * Mild concentric left ventricular hypertrophy. * Mild left ventricular diastolic dysfunction. Right Ventricle * Normal right ventricular structure and function. Left Atrium * Mildly dilated left atrium. Right Atrium * Normal right atrial size. Interatrial Septum * No evidence of PFO by color Doppler. Aortic Valve * Trileaflet aortic valve with normal function. * No aortic regurgitation. * No aortic stenosis. Mitral Valve * Mild mitral annular calcification * No mitral regurgitation. * No mitral stenosis. Tricuspid Valve * Normal tricuspid valve structure and function. * Trace tricuspid regurgitation. * No evidence of pulmonary hypertension. Pulmonic Valve * Pulmonic valve is not well visualized. * No pulmonic regurgitation. Aorta * Normally sized aortic root. Pericardium * The pericardium appears normal. IVC * Normal IVC dimensions and inspiratory collapse. Pulmonary Artery * Normal visualized portions of the main pulmonary artery. History Hypertension History of Smoking Years 30 Packs 3 Measurements: BP: 136/ 85 2D Normal Values RVIDd: 3.00 cm <2.7 cm IVSd: 1.20 cm 0.6 - 1.0 cm LVIDd: 4.50 cm 3.7 - 5.6 cm LVPWd: 1.20 cm 0.6 - 1.1 cm LVIDs: 2.80 cm 1.5 - 3.6 cm AO: 2.70 cm < 4.0 cm LA: 4.10 cm 2.0 - 4.0cm %FS: 37.80 cm >25 % LA volume: 28 Mitral Valve Peak E:.91 m/sec Peak A:.84 m/sec E/A Ratio:1.1 Peak E' Lat Leroy:10.7 cm/s Peak E' Med Leroy:5.95 cm/s E/E' Lat Ratio:8.5 E/E' Med Ratio:15.3 Tricuspid Valve TV Regurg Peak Grad: 6.00mmHg TV Regurg Peak Leroy: 1.21m/sec Updated by Georges Santana DO, FACLara, SHAHRIAR, EMIL on 05/08/2016 11:47:23 AM electronically signed on 05/08/2016 11:50:01 AM with status of [employer] Taylor: 1=Normal, 2=Hypokinesis, 3=Akinesis, 4=Dyskinesis, 5=Aneurysmal, 6=Hyperkinetic, X=Not Visualized (Blank)=Missing
[2016-05-08] MEDS: Nicotine 7 MG PATCH.TD24 TD SCH (12:27)
--- NOTE | 2016-05-08 12:54 | Event Note ---
<Daniel Garcia - Last Filed: 05/08/16 15:05> Date of Encounter: 05/08/16 Time of Encounter: 08:00 Mr. Aquino 60-year-old male with known history of cirrhosis secondary to alcohol, COPD, DVT, GERD, hyperlipidemia, hypertension, osteoporosis, PAD, SVT, syncope was admitted with new onset atrial fibrillation was started on Cardizem drip and converted back to normal sinus rhythm with a heart rate averaging in the mid 70s. He was also started on Coreg 3.125 mg twice a day. He is currently in stable condition without complaints he is feeling much better compared to admission. he has known history of peripheral artery disease and was prescribed Plavix but has been unable to afford his medication and has not been taking this. He was seen by cardiology this morning who recommended cardiac nuclear stress test and LYLA. His cardiac stress test has to be delayed until tomorrow morning as he has a nicotine patch on. With his history of PAD and new diagnosis of atrial fibrillation he will require long-term anticoagulation but this will be determined prior to discharge as he may undergo left heart catheterization if he has an abnormal stress test. Echocardiogram today demonstrated a left ventricular ejection fraction is 60-65 % with normal left ventricular chamber size and function. Mild concentric left ventricular hypertrophy. Mild left ventricular diastolic dysfunction. Normal right ventricular structure and function. No evidence of pulmonary hypertension identified. RVSP was not well obtained due to poor tricuspid jet. Aortic root appeared normal in size. Vitals: Patient has remained afebrile, ventricular paced, respiratory rate is appropriate, normotensive, oxygen saturations greater than 90% on 2 L. Laboratory results: Hemoglobin 17.7, WBCs 9.6, hematocrit 51.5, INR to 1.1, triglycerides 562, cholesterol 251, LDL and VLDL unable to be calculated secondary to triglycerides. 400. Urine drug screen positive for opiates and benzodiazepines. Physical examination: Gen. description normocephalic atraumatic, well-developed , appropriately nourished 60-year-old male in no acute distress, neck supple trachea midline, chest symmetric bilateral correlating with respiratory effort. Diffuse inspiratory expiratory wheeze appreciated in all lung sánchez. Cardiac regular rate and rhythm positive S1-S2 no murmurs appreciated, no no bruits appreciated bilaterally. Abdomen is soft obese nontender to palpation, patient has diastases recti and umbilical depressible hernia nonobstructed. Extremities symmetric bilateral with diminished pulses in bilateral posterior tibial and dorsal pedal. Assessment and plan: Atrial fibrillation with RVR: Patient is in normal sinus rhythm after starting Cardizem drip, cardiology was consult and is evaluated the patient with plans of cardiac stress test and LYLA tomorrow. Echocardiogram as described above. Patient to be nothing by mouth overnight and nicotine patch discontinued before midnight. Anticoagulation will be determined by cardiology post procedures. Chest pain: Patient atypical chest pain associated with atrial fibrillation with RVR, improvement with rate control. Patient has significant vascular history and no recent cardiology follow-up. Cardiology is following and will continue current aspirin, Plavix, statin, ARISTEO inhibitor and beta jaimee during inpatient stay. Hypertriglyceridemia : patient's triglycerides not on a statin liver cirrhosis. His AST and ALTs are within normal limits. Patient was started on simvastatin 40 mg by mouth at bedtime during this inpatient stay. Plan to continue monitoring liver function tests during his inpatient stay if tolerated continue simvastatin outpatient. peripheral artery disease history: Patient is supposed to be taking Plavix daily with his peripheral artery disease and due to cost he has not been taking this medication. Plan to work with healthcare social worker to find cost effective options. <Nathaniel Elena - Last Filed: 05/08/16 16:55> Date of Encounter: 05/08/16 60 y/o male admitted earlier this AM with atrial fibrillation with RVR. He has converted to NSR. He complained of CP and is to have a stress test. Will continue current plan of care as above.
--- NOTE | 2016-05-08 17:44 | Electrocardiograph Report ---
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
--- NOTE | 2016-05-08 17:44 | Electrocardiograph Report ---
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
[2016-05-09] MEDS: Ipratropium/Albuterol Neb 3 ML IH SCH ×3 (04:46→16:39)
[2016-05-09] MEDS: Albuterol 2.5 MG/3 ML NEBULIZER IH SCH ×5 (04:47→19:55)
[2016-05-09 04:57] LABS: Basophils # 0.1 K/mcL (0.0-0.2); Basophils % 0.6 %; Eosinophils # 0.6 K/mcL (0.0-0.6); Eosinophils % 7.7 %; Hematocrit 45.7 % (37.5-50.1); Immature Granulocytes % 0.4 % (0-4); Mean Corpuscular HGB Conc 33.5 g/dL (31.6-35.5); Mean Corpuscular Hemoglobin 32.3 pg (28.0-33.3); Mean Corpuscular Volume 96.4 fL (83.0-100.0); Mean Platelet Volume 10.4 fL (9.4-12.4); Monocytes # 0.8 K/mcL (0.0-1.3); Monocytes % 10.3 %; Neutrophils # 4.4 K/mcL (1.6-8.9); Platelet Count 174 K/mcL (140-400); Red Blood Count 4.74 M/mcL (4.19-5.50); Red Cell Distribution Width 12.7 % (11.5-14.5)
[2016-05-09 05:02] LABS: Hemoglobin 15.3 g/dL (12.9-16.9)
[2016-05-09 05:14] LABS: Alanine Aminotransferase 29 Units/L (0-55); Albumin 3.5 g/dL (3.5-5.0); Albumin/Globulin Ratio 1.1 (1.1-2.2); Alkaline Phosphatase 49 Units/L (38-126); Aspartate Amino Transferase 23 Units/L (5-34); BUN/Creatinine Ratio 15 (6-26); Blood Urea Nitrogen 18 mg/dL (8-26); Calcium 8.7 mg/dL (8.6-10.8); Carbon Dioxide 27 mEq/L (19-29); Chloride 104 mEq/L (98-109); Globulin 3.3 g/dL (2.4-3.5); Glucose 82 mg/dL (70-99); Osmolality,Calculated 291 (280-300); Potassium 4.4 mEq/L (3.5-4.5); Sodium 140 mEq/L (136-145); Total Protein 6.8 g/dL (6.0-8.3); eGFR For African Americans > 60 (> 60); eGFR For Non-African Americans > 60 (> 60)
[2016-05-09] MEDS: *HR* Heparin 5,000 UNIT/ML VIAL SQ SCH ×3 (05:35→15:16)
[2016-05-09] MEDS ORDERED: Regadenoson 0.4 MG/5 ML SYRINGE IVP ONE (06:26)
--- NOTE | 2016-05-09 08:21 | Cardiology Progress Note ---
Date of Encounter: 05/09/16 Time of Encounter: 09:00 Assessment and Plan (1) New onset atrial fibrillation Current Visit: Yes Status: Acute Per Cardiology: Apparent new onset atrial fibrillation. Patient denies any past history of atrial fibrillation. Converted back to sinus rhythm with IV Cardizem.. Average heart rate on telemetry 70, lowest heart rate 54, sinus rhythm, no significant events (1 beat run NSVT). Off IV Cardizem and on Coreg 6.25 mg by mouth twice a day. Systolic blood pressures 110s to 130's. Troponins negative 4. Electrolytes stable. TSH within normal limits. Echo showed EF preserved at 60-65 %, mild diastolic dysfunction, no significant valvular dysfunction, no segmental wall motion abnormalities. Patient with significant vascular disease and no cardiac evaluation recently. Stress test nuclear exam negative for ischemia or infarct. Re: Long-term anticoagulation, [id number] = (4?-- Reported history of hypertension, however patient denies; recorded history of DVT, however patient denies). Somewhat of a poor historian. Discuss and review with Dr. Donovan recommendations for anticoagulation. (2) Chest pain, rule out acute myocardial infarction Current Visit: Yes Status: Acute Per Cardiology: Atypical chest pain that occurred at rest and in the setting of A. fib with RVR , however patient with significant risk factors has not had cardiac evaluation in the past. Agaion, stress test negative for infarct or ischemia. Currently on aspirin as outpatient (reports taking 2 baby asa twice a day), reports has not been taking Plavix due to cost constraints. Currently on aspirin, Plavix, statin , ARISTEO inhibitor, and beta jaimee. Current LFTs stable. Previous hematology/ oncology note reviewed from November 2014 and patient with apparent alcohol- induced cirrhosis. Recommend monitor closely with statin. (3) Chronic respiratory failure with hypoxia Current Visit: Yes Status: Chronic Per Cardiology: History of COPD with significant nicotine abuse. Utilizes oxygen at home. Clinically stable on exam. (4) Nicotine dependence with nicotine-induced disorder Current Visit: Yes Status: Chronic Per Cardiology: Smokes one pack per day for 30 years, recently smoking 3 packs per day since June 2015 with passing of his . Smoking cessation reinforced. Back on patch. Qualifiers: Nicotine product type: cigarettes Qualified Code(s): F17.219 - Nicotine dependence, cigarettes, with unspecified nicotine-induced disorders (5) PAD (peripheral artery disease) Current Visit: Yes Status: Chronic Per Cardiology: Known history of PAD with left common femoral to [id number] popliteal artery bypass, aorto iliac and deep femoral artery thrombectomy, and left common and deep femoral artery in arterectomy April 2015. Follows with vascular surgery. On aspirin, Plavix, statin currently. (6) Cirrhosis of liver not due to alcohol Current Visit: No Status: Acute Per Cardiology: History of alcohol abuse with suspected alcohol induced cirrhosis review of previous records. Monitor LFTs closely with statin therapy. Discussion w patient/family: The assessment and plan as outlined above was discussed with the patient who expressed understanding and agreement. All questions were answered. Thank you for involving us in the care of your patient. Please call with any questions. Subjective Principal diagnosis: Afib Interval history: Patient denies any chest pain, shortness of breath, or palpitations. Denies any concerns or complaints. Anxious to be discharged home today. Confirms no recent alcohol use over the past 1/2 year. Objective Vital Signs, Last 4 Hours Temp Pulse Resp BP Pulse Ox 05/09/16 04:46 16 100 05/09/16 04:20 97.4 F L 76 14 116/73 99 General: Conversant, No Apparent Distress HEENT: Atraumatic, Normocephaly Cardiac: Reg Rate and Rhythm, Normal S1 and S2, No Murmur Lungs: Normal Breath Sounds, No Wheeze, Rales, Rhonchi, Other (Slightly labored at rest) Neuro: Alert and responsive, No focal deficits noted Extremities: No Edema Results 05/09/16 04:35 05/09/16 04:35 Lab Results Laboratory Tests 05/08/16 05/08/16 05/08/16 00:00 04:05 10:21 Troponin I 0.01 0.02 0.01 05/08/16 16:50 Troponin I 0.01 Active Medications Acetaminophen (Tylenol) 650 mg PO Q6HR PRN PRN Reason: Mild Pain (1-3) Stop: 11/07/16 02:45 Al Hydrox/Mg Hydrox/Simethicone (Maalox) 15 ml PO Q6HR PRN PRN Reason: Dyspepsia Stop: 11/07/16 02:45 Albuterol Sulfate (Proventil Neb) 2.5 mg IH [id number] FLO PRN Reason: Protocol Stop: 11/07/16 04:01 Last Admin: 05/09/16 08:16 Dose: Not Given Albuterol/Ipratropium (Duoneb) 3 ml IH QIDR [facility] Stop: 11/07/16 05:01 Last Admin: 05/09/16 04:46 Dose: 3 ml Alprazolam (Xanax) 1 mg PO Q8H PRN; Protocol PRN Reason: Anxiety Stop: 11/07/16 02:59 Aspirin (Aspirin) 81 mg PO DAILY [facility] Stop: 11/07/16 09:01 Last Admin: 05/08/16 09:19 Dose: 81 mg Benzonatate (Tessalon) 200 mg PO TID PRN PRN Reason: Cough Stop: 11/07/16 03:02 Carvedilol (Coreg) 6.25 mg PO BIDWM [facility] Stop: 11/07/16 21:01 Last Admin: 05/08/16 20:03 Dose: 6.25 mg Clopidogrel Bisulfate (Plavix) 75 mg PO DAILY [facility] Stop: 11/07/16 09:01 Last Admin: 05/08/16 09:19 Dose: 75 mg Docusate Sodium (Colace) 100 mg PO BID [facility] Stop: 11/07/16 09:01 Last Admin: 05/08/16 20:03 Dose: 100 mg Guaifenesin (Mucinex) 600 mg PO BID [facility] Stop: 11/07/16 09:01 Last Admin: 05/08/16 20:03 Dose: 600 mg Heparin Sodium (Porcine) (Heparin) 5,000 unit SQ Q8HCO [facility] Stop: 11/07/16 07:01 Last Admin: 05/09/16 05:35 Dose: 5,000 unit Sodium Chloride (0.9 % Sodium Chloride) 1,000 mls @ 50 mls/hr IVC .Q20H [facility] Stop: 11/07/16 02:46 Last Admin: 05/08/16 03:44 Dose: 50 mls/hr Lisinopril (Zestril) 2.5 mg PO DAILY [facility] Stop: 11/07/16 09:01 Last Admin: 05/08/16 09:18 Dose: 2.5 mg Morphine Sulfate (Morphine Sulfate) 4 mg IVP Q2H PRN PRN Reason: Severe Pain (7-10) Stop: 11/07/16 02:45 Naloxone HCl (Narcan) 0.4 mg IVP Q2MIN PRN PRN Reason: Opioid Reversal Stop: 11/07/16 02:45 Nicotine (Nicoderm) 7 mg TD DAILY [facility] PRN Reason: Protocol Stop: 11/07/16 12:01 Last Admin: 05/08/16 12:27 Dose: 7 mg Nitroglycerin (Nitroglycerin) 0.4 mg SL Q5MIN PRN PRN Reason: Chest Pain Stop: 11/07/16 03:02 Omeprazole (Prilosec) 40 mg PO DAILY@0630 [facility] PRN Reason: Protocol Stop: 11/07/16 06:31 Last Admin: 05/09/16 05:34 Dose: 40 mg Ondansetron HCl (Zofran) 4 mg IVP Q6HR PRN PRN Reason: Nausea And Vomiting Stop: 11/07/16 02:45 Oxycodone HCl (Roxicodone) 10 mg PO Q6HR PRN PRN Reason: Moderate Pain (4-6) Stop: 11/07/16 02:45 Last Admin: 05/08/16 18:38 Dose: 10 mg Simvastatin (Zocor) 40 mg PO HS [facility] Stop: 11/07/16 21:01 Last Admin: 05/08/16 20:03 Dose: 40 mg - Imaging and Cardiology Stress Test: pending Echo: report reviewed - EKG Interpretation EKG results cardiology: other Consult Discharge Plan - Plan Referrals: Anjel Austin MD [Primary Care Provider] - 05/15/16 9:45 am Anil Lima MD [Partnered Physician] - 05/24/16 1:30 pm Akash Dee MD [Partnered Physician] - 05/19/16 3:00 pm
[2016-05-09] MEDS: Nicotine 7 MG PATCH.TD24 TD SCH (09:16)
[2016-05-09] MEDS: Aspirin 81 MG TAB.CHEW PO SCH (09:16)
--- NOTE | 2016-05-09 10:29 | Nuclear Medicine Stress Report ---
Regadenoson Nuclear Stress Name: Sonny Aquino Date of Study: 05/09/2016 Date: 1955 Ht: 68.0 in Medical Record#: [id number] Age: 60 Wt: 210.0 lb Gender: Male Order #: [id number] Location: [facility] Room: [facility] Supervising Provider: Russ Harper CNP Reading Physician: Татьяна Piña DO Ordering Physician: Nathaniel Elena DO Primary Care Physician: Anjel Austin MD Stress Technologist: Lou Fay COSMETIC SALES ADVISOR, CCT Bioprocess Development Engineer: Jeffrey Jimenez Indications: Chest Pain Impression: Perfusion imaging was negative for ischemia or infarct. Pharmacologic ECG was negative for ischemia at the level of heart rate achieved. Gated EF = 68%. History: Hypertension Hypercholesteremia History of Smoking Stress Test Summary: Stress Test Type: Pharmacologic Regadenoson 0.4mg/5ml given IV Baseline Information: Initial Heart Rate: 76 Blood Pressure: 148/78 Stress Information: Test Terminated Due to (primary): As per protocol Maximum Blood Pressure: 154/82 Maximum Heart Rate: 65 Percent Maximum Heart Rate Achieved: 65 Double Product: 47304 METS Reached: 1 Symptoms: Chest pain Nuclear Summary: SPECT myocardial perfusion imaging using Tc99m Sestamibi given intravenously was performed at rest and following cardiac stress testing. The resting images were obtained following initial dose of 11.6 mCi. Following stress an additional dose of 35.9 mCi was given at peak exercise or 30 seconds post regadenoson infusion. Medication Given: Time Medication Dose Units Route Findings: Stress Note * Resting ECG demonstrated normal sinus rhythm. * Pharmacologic stress ECG is negative for ischemia at level of heart rate achieved. * No arrhythmias were noted during stress. * Patient had no chest pain during stress. Hemodynamic responses * Normal hemodynamic responses to pharmacologic stress. Study Quality * Study quality was fair. Gated EF % * Gated EF = 68%. Left Ventricle * The left ventricle is not dilated. TID * No evidence of transient ischemic dilatation. Lung Uptake * There is no evidence of increase lung uptake. NORMALS * Normal wall motion. PERFUSION * There is a small sized, fixed perfusion defect involving the apical inferior wall. Findings are consistent with artifact. * Other segments demonstrate normal rest and stress perfusion. Updated by Татьяна Piña on 05/09/2016 10:23:59 AM electronically signed on 05/09/2016 10:24:43 AM with status of Final
--- NOTE | 2016-05-09 10:54 | Internal Med Progress Note ---
<Daniel Garcia - Last Filed: 05/09/16 10:50> Date of Encounter: 05/09/16 Time of Encounter: 09:30 - Assessment and plan (1) Atrial fibrillation with rapid ventricular response Current Visit: Yes Status: Acute Assessment and plan: Mr. Aquino 60-year-old male was admitted with atrial fibrillation RVR new onset. He was started on Cardizem drip and converted into normal sinus rhythm which is maintained. Cardizem has since been discontinued and he is continued on Coreg at 6.25 mg by mouth twice a day and maintaining normal sinus rhythm. Patient denies history of heart failure or previous OH, stents. He is on Plavix for his peripheral artery disease, but was unable to afford the medication was not taking at home. Cardiology is following and the patient underwent nuclear medicine stress test this morning which demonstrates no ischemic changes or infarct. DJD EF was 60%. Patient risk factors include history of smoking, hypercholesterolemia, hypertension, hyperlipidemia, PAD, medical noncompliance. Echocardiogram: Demonstrated left ventricular ejection fraction 60-65%. Normal left ventricular chamber size and function. Mild concentric left ventricular hypertrophy. Mild left ventricular diastolic dysfunction. Normal right ventricular structure and function. No evidence of pulmonary hypertension identified. RVSP was not obtained due to poor TR jet. No significant valvular dysfunction. Aortic root appears normal in size. Plan: -Continue Coreg 6.25 mg twice a day -Continue aspirin, Plavix, lisinopril, simvastatin 40 mg by mouth - Awaiting cardiology's further recommendations regarding anticoagulation and potential cardiac catheterization. (2) COPD (chronic obstructive pulmonary disease) Current Visit: Yes Status: Chronic Assessment and plan: Patient with history of COPD and does not use oxygen at home. Currently respiratory ramirez stable condition. Patient is every day 2-3 pack per day smoker. During his inpatient stay he requires nicotine patch. Plan: - Continue inpatient inhalers and DuoNeb treatments. - Monitor rest for status with daily vitals. Qualifiers: COPD type: unspecified COPD Qualified Code(s): J44.9 - Chronic obstructive pulmonary disease, unspecified (3) Dyslipidemia Current Visit: Yes Status: Chronic Assessment and plan: Patient history of dyslipidemia, patient's triglycerides and cholesterol were elevated on current admission. He was not on statin medication at home prior to admission. He was started on simvastatin 40 mg by mouth at bedtime and LFTs have been stable. Plan: - Continue simvastatin 40 mg by mouth and recommend follow-up with outpatient PCP for further treatment options. (4) Nicotine dependence with nicotine-induced disorder Current Visit: Yes Status: Chronic Assessment and plan: Patient is a 2-3 pack per day smoker with associated COPD. His tobacco abuse is likely contributing to his peripheral artery disease, hypertension and other medical conditions. Smoking cessation is discussed with the patient during his current admission. Plan: - Continue nicotine patch inpatient. Qualifiers: Nicotine product type: cigarettes Qualified Code(s): F17.219 - Nicotine dependence, cigarettes, with unspecified nicotine-induced disorders (5) PAD (peripheral artery disease) Current Visit: Yes Status: Chronic Assessment and plan: Patient has known history of peripheral artery disease with claudication. He was prescribed Plavix 75 mg by mouth daily in the outpatient setting but was not taking this medication due to cost. He had been taking aspirin at home. Patient will likely need anticoagulation upon discharge for atrial fibrillation and coverage for his PAD. Awaiting cardiology's recommendations. (6) Chronic liver disease and cirrhosis Current Visit: Yes Status: Acute Assessment and plan: Patient has a known history of liver cirrhosis secondary to alcohol use. LFTs and INR stable. Medication consideration of his current underlying liver status. (7) Obesity (BMI 30-39.9) Current Visit: Yes Status: Chronic Assessment and plan: Patient's BMI is 33.6 meeting obesity. Recommend lifestyle changes including diet improvements and exercise as tolerated. (8) DVT prophylaxis Current Visit: Yes Status: Acute Assessment and plan: DVT prophylaxis includes heparin 500 units subcutaneous every 8 hours. - Subjective Interval history: Mr. Aquino has been seen and evaluated patient bedside status post nuclear medicine stress test this morning. He is sitting up in bed asking when he may be able to be discharged home that he is feeling much better. He is also hungry and asked if he can eats. He denies any chest pain, palpitations, chest pressure, change in vision, nausea, vomiting, diarrhea or constipation. I discussed waiting on cardiology's recommendations and results from his stress test. Patient was recently under standing and is awaiting further recommendations at this time. - Constitutional Vitals: Temp Pulse Resp BP Pulse Ox 97.9 F 86 12 132/74 93 L 05/09/16 09:15 05/09/16 09:15 05/09/16 09:15 05/09/16 09:15 05/09/16 09:15 General appearance: Present: A&O X 3, pleasant, no acute distress - Head Head exam: Present: atraumatic, normocephalic - Eye Eye exam: Present: PERRL, conjuntiva pink, sclera anicteric - ENT ENT exam: Present: mucous membranes moist - Neck Neck exam general surgery: Present: supple, trachea midline - Respiratory Respiratory exam: Present: wheezes - Cardiovascular Cardiovascular exam: Present: RRR, +S1, +S2 - GI/Abdominal GI/Abdominal exam: Present: normal bowel sounds, soft Additional comments: Umbilical hernia stable, depressible - Extremities Exam Extremities exam: Present: warm, radial pulses palpable and symetrical. Absent : pedal edema - Back Exam Back exam: Present: normal inspection - Neurological Exam Neurological exam: Present: alert, oriented X3, no focal deficits - Psychiatric Psychiatric exam: Present: normal affect, normal mood - Skin Skin exam: Present: warm Internal Medicine: Result - Labs CBC & Chem 7: 05/09/16 04:35 05/09/16 04:35 Labs: Short CBC 05/09/16 Range/Units 04:35 WBC 7.9 (4.3-11.1) K/mcL Hgb 15.3 D (12.9-16.9) g/dL Hct 45.7 (37.5-50.1) % Plt Count 174 (140-400) K/mcL Neutrophils # 4.4 (1.6-8.9) K/mcL BMP 05/09/16 04:35 Sodium 140 Potassium 4.4 Chloride 104 Carbon Dioxide 27 BUN 18 Creatinine 1.19 Glucose 82 Calcium 8.7 Cardiac Enzymes 05/08/16 05/08/16 Range/Units 10:21 16:50 Troponin I 0.01 0.01 (0-0.03) ng/mL Liver Function 05/09/16 Range/Units 04:35 Total Bilirubin 1.0 D (0.2-1.2) mg/dL AST 23 (5-34) Units/L ALT 29 (0-55) Units/L Alkaline Phosphatase 49 (38-126) Units/L Albumin 3.5 (3.5-5.0) g/dL - ABG Interpretation ABG results: PT/INR, D-dimer PT 12.0 Seconds (9.4-12.1) 05/08/16 00:00 Consult Discharge Plan - Plan Instructions: Lisinopril (By mouth), Warfarin (By mouth), Nicotine (Absorbed through the skin), Simvastatin (By mouth), Carvedilol (By mouth), Atrial Fibrillation (DC) Referrals: aNTICOAGULATION, MANAGEMENT [Other] (PLEASE CALL ) Anjel Austin MD [Primary Care Provider] - 05/15/16 9:45 am Anil Lima MD [Partnered Physician] - 05/24/16 1:30 pm Akash Dee MD [Partnered Physician] - 05/19/16 3:00 pm Prescriptions: Carvedilol [Coreg] 6.25 mg PO BIDWM #60 tablet Lisinopril [Zestril] 2.5 mg PO DAILY #30 tablet Nicotine Patch [Nicoderm] 7 mg TD DAILY #30 patch.td24 Simvastatin [Zocor] 40 mg PO HS #30 tablet Warfarin [Coumadin] 5 mg PO 1800 #30 tablet <Nathaniel Elena - Last Filed: 05/09/16 18:56> Date of Encounter: 05/09/16 - Assessment and plan (1) Atrial fibrillation Current Visit: Yes Status: Acute Qualifiers: Atrial fibrillation type: paroxysmal Qualified Code(s): I48.0 - Paroxysmal atrial fibrillation (2) COPD (chronic obstructive pulmonary disease) Current Visit: Yes Status: Chronic Qualifiers: COPD type: emphysema Emphysema type: panlobular Qualified Code(s): J43.1 - Panlobular emphysema (3) Dyslipidemia Current Visit: Yes Status: Chronic (4) Nicotine dependence with nicotine-induced disorder Current Visit: Yes Status: Chronic Qualifiers: Nicotine product type: cigarettes Qualified Code(s): F17.219 - Nicotine dependence, cigarettes, with unspecified nicotine-induced disorders (5) PAD (peripheral artery disease) Current Visit: Yes Status: Chronic (6) Chronic liver disease and cirrhosis Current Visit: Yes Status: Acute (7) Obesity (BMI 30-39.9) Current Visit: Yes Status: Chronic - Constitutional Vitals: Temp Pulse Resp BP Pulse Ox 98.7 F 70 18 152/81 99 05/09/16 15:29 05/09/16 15:29 05/09/16 16:39 05/09/16 15:29 05/09/16 16:39 Internal Medicine: Result - Labs CBC & Chem 7: 05/09/16 04:35 05/09/16 04:35 Labs: Short CBC 05/09/16 Range/Units 04:35 WBC 7.9 (4.3-11.1) K/mcL Hgb 15.3 D (12.9-16.9) g/dL Hct 45.7 (37.5-50.1) % Plt Count 174 (140-400) K/mcL Neutrophils # 4.4 (1.6-8.9) K/mcL BMP 05/09/16 04:35 Sodium 140 Potassium 4.4 Chloride 104 Carbon Dioxide 27 BUN 18 Creatinine 1.19 Glucose 82 Calcium 8.7 Liver Function 05/09/16 Range/Units 04:35 Total Bilirubin 1.0 D (0.2-1.2) mg/dL AST 23 (5-34) Units/L ALT 29 (0-55) Units/L Alkaline Phosphatase 49 (38-126) Units/L Albumin 3.5 (3.5-5.0) g/dL Urine 05/08/16 Range/Units 05:40 Urine Color Yellow (Yellow) Urine Clarity Clear (Clear) Urine pH 6.5 (5.0-8.0) pH Units Ur Specific [place] 1.025 (1.010-1.025) Urine Protein 30 H (Neg-Trace) mg/dL Urine Glucose (UA) Normal (Normal) mg/dL - ABG Interpretation ABG results: PT/INR, D-dimer PT 12.0 Seconds (9.4-12.1) 05/08/16 00:00 - Attending Attestation I examined this patient and my medical decision-making was reviewed with the Resident Physician on 05/09/16. I agree with the documented findings, disposition and treatment plan as described except to the extent set forth below. Pt ultimately discharged home. Please see discharge summary of same date completed by me.
[2016-05-09 12:10] LABS: Bilirubin,Urine Negative (Negative); Blood,Urine Negative (Negative); Clarity,Urine Clear (Clear); Color,Urine Yellow (Yellow); Glucose,Urine (UA) Normal (Normal); Ketones,Urine Negative (Negative); Leukocyte Esterase,Urine Small (Negative); Nitrite,Urine Negative (Negative); PH,Urine 6.5 pH Units (5.0-8.0); Protein,Urine 30 mg/dL (Neg-Trace); Specific Gravity,Urine 1.025 (1.010-1.025); Urobilinogen,Urine Normal (Normal)
[2016-05-09 12:28] LABS: Bacteria,Urine Moderate per hpf (None-Few); Squamous Epithelial Cell,Urine Few per lpf (None-Few)
[2016-05-09 12:29] LABS: WBC,Urine 30-50 per hpf (0-3)
[2016-05-09] MEDS: *HR* OxyCODONE Immed Rel 5 MG TABLET PO PRN (13:34)
--- NOTE | 2016-05-09 15:08 | Event Note ---
Date of Encounter: 05/09/16 Time of Encounter: 15:00 - Cardiology Event Note Patient reevaluated this afternoon and informed of negative stress test results. Patient prepping for possible discharge home today. We had discussion regarding regarding long-term anticoagulation of Coumadin versus DOAC. Patient previously working with social work and decided to proceed with Coumadin and will follow with [facility]. Patient will officially stop Plavix-- not taking at home anyway. Encouraged to decrease aspirin to 81 mg by mouth daily. Cardiology signing off, re-consult as needed, follow-up appointment with cardiology as been arranged.
[2016-05-09 15:30] VITALS: BP 152/81
--- NOTE | 2016-05-09 17:17 | Discharge Summary ---
Date of Encounter: 05/09/16 Time of Encounter: 17:13 - Discharge Diagnosis (1) Atrial fibrillation Priority: Primary Status: Acute Qualifiers: Atrial fibrillation type: paroxysmal Qualified Code(s): I48.0 - Paroxysmal atrial fibrillation (2) COPD (chronic obstructive pulmonary disease) Priority: Secondary Status: Chronic Qualifiers: COPD type: emphysema Emphysema type: panlobular Qualified Code(s): J43.1 - Panlobular emphysema (3) Dyslipidemia Priority: Secondary Status: Chronic (4) Nicotine dependence with nicotine-induced disorder Priority: Secondary Status: Chronic Qualifiers: Nicotine product type: cigarettes Qualified Code(s): F17.219 - Nicotine dependence, cigarettes, with unspecified nicotine-induced disorders (5) PAD (peripheral artery disease) Priority: Secondary Status: Chronic (6) Chronic liver disease and cirrhosis Priority: Secondary Status: Acute (7) Obesity (BMI 30-39.9) Priority: Secondary Status: Chronic - Discharge Medications Prescriptions: Carvedilol [Coreg] 6.25 mg PO BIDWM #60 tablet Lisinopril [Zestril] 2.5 mg PO DAILY #30 tablet Nicotine Patch [Nicoderm] 7 mg TD DAILY #30 patch.td24 Simvastatin [Zocor] 40 mg PO HS #30 tablet Warfarin [Coumadin] 5 mg PO 1800 #30 tablet Home Medications: Alprazolam [Xanax] 1 mg PO Q8H PRN 11/16/14 [History] Aspirin Enteric Coated [Aspirin EC] 81 mg PO DAILY 11/16/14 [History] Furosemide [Lasix] 20 mg PO BID 11/16/14 [History] Hydrocodone/Acetaminophen [[place] 5-325 Tablet] 1 tab PO Q6H PRN 05/04/15 [ History] Albuterol Neb [Proventil Neb] 2.5 mg IH [id number] inhsol 05/09/16 [Rx] Carvedilol [Coreg] 6.25 mg PO BIDWM #60 tablet 05/09/16 [Rx] Lisinopril [Zestril] 2.5 mg PO DAILY #30 tablet 05/09/16 [Rx] Nicotine Patch [Nicoderm] 7 mg TD DAILY #30 patch.td24 05/09/16 [Rx] Simvastatin [Zocor] 40 mg PO HS #30 tablet 05/09/16 [Rx] Warfarin [Coumadin] 5 mg PO 1800 #30 tablet 05/09/16 [Rx] Allergies/Adverse Reactions: Allergies Iodinated Contrast Media - Oral and [Iodinated Contrast Media - IV Dye] Allergy (Verified 05/08/16 14:36) Hives Procedures/tests Complete & Pending: Procedures Performed prior 72 hours Category Date Time Status NM teagan perf SPECT multi [NM] Routine Exams 05/08/16 10:36 Taken ECG 12 lead ECG [ECG] AM 0600 Y 05/08/16 06:00 Ordered ECG 12 lead ECG [ECG] Routine Y 05/08/16 03:02 Completed EV echocardiogram Stat Y 05/08/16 02:55 Completed SP pharm nuclear stress Routine Y 05/09/16 07:30 Completed Date of admission: 05/08/16 02:22 Primary care physician: Anjel Austin MD Consults: 05/08/16 03:02 Consult to Cardiac Rehabilitation-Phase1 [CONS] Routine Comment: Reason for Consult: AMI Call Completed: Yes Consult to Nurse Navigator [CONS] Routine Comment: Consult to Nurse Navigator [CONS] Routine Comment: 05/08/16 08:00 Consult to Cardiology [CONS] Routine Comment: Consulting Provider: Cardiology Mercedes Reason for Consult: New onset atrial fibrillation RVR patient with long history of significant PAD. Multiple risk factors/comorbidities. Please evaluate and advise. Time Notified: 04:30 Call Completed: No 05/08/16 10:10 Consult to Mid Level Game Designer [CONS] Routine Reason for SW Consult: discharge planning Discharging clinician: Nathaniel Elena Anticipated date of discharge: 05/09/16 - Patient Status Disposition: Home, Self-Care Condition: Fair Functional capacity at discharge: independent ambulation Overall status at discharge: patient is progressing back to baseline - Discharge Instructions Follow Up With: aNTICOAGULATION, MANAGEMENT [Other] (PLEASE CALL ) Anjel Austin MD [Primary Care Provider] - 05/15/16 9:45 am Anil Lima MD [Partnered Physician] - 05/24/16 1:30 pm Akash Dee MD [Partnered Physician] - 05/19/16 3:00 pm - Diet and Activity Activity: increase activity as tolerated Diet: low fat, low cholesterol, low salt diet Hospital course: Mr. Aquino is a 60 year old male with hx of COPD presented to ED with chest pain and dyspnea. Found to be in atrial fibrillation with RVR which is new. He was started on a Cardizem drip and converted to NSR Mr. Aquino was admitted to [facility]. He was continued on ACS r/o. He was scheduled for stress test but had been wearing a nicotine patch so stress test was postponed a day. On 05/09 he was feeling well. He had stress test which was read as nonischemic. He had good BP and heartrate. He chose Coumadin as anticoagulation. He was also started o Coreg, Lisinopril and Zocor in addition to baby ASA. He was felt medically stable and was subsequently discharged home. - Time Spent with Patient Total time spent providing and/or coordinating discharge services: 40min - Constitutional Vitals: Temp Pulse Resp BP Pulse Ox 98.7 F 70 18 152/81 99 05/09/16 15:29 05/09/16 15:29 05/09/16 16:39 05/09/16 15:29 05/09/16 16:39 General appearance: Present: A&O X 3, pleasant, no acute distress - Head Head exam: Present: normocephalic - Eye Eye exam: Present: conjuntiva pink - ENT ENT exam: Present: mucous membranes moist - Respiratory Respiratory exam: Present: decreased breath sounds, rhonchi - Cardiovascular Cardiovascular exam: Present: RRR. Absent: tachycardia - GI/Abdominal GI/Abdominal exam: Present: soft. Absent: tenderness - Extremities Exam Extremities exam: Present: warm. Absent: pedal edema - Neurological Exam Neurological exam: Present: alert, oriented X3, no focal deficits - Skin Skin exam: Present: dry, warm. Absent: rash
== END 2016-05-09 21:27 | disposition home or self-care (01) ==
LOC: 2NENU 23:44 → EMEROO 23:44 → 2NENU 05-08 03:20
PROVIDERS: ADMIT Pediatrics; ATTEND Internal Medicine

== ENCOUNTER 2017-04-16 22:29 | Inpatient (IN) ==
[2017-04-16] MEDS ORDERED: Ipratropium/Albuterol Neb 3 ML IH ONE (22:55)
[2017-04-16] MEDS ORDERED: predniSONE 20 MG TABLET PO ONE (22:55)
--- NOTE | 2017-04-16 23:10 | Emergency Department Note ---
Disposition Clinical Impression: COPD exacerbation Acute and chronic respiratory failure Qualifiers: Respiratory failure complication: hypoxia Qualified Code(s): J96.21 - Acute and chronic respiratory failure with hypoxia Disposition: Admitted As Inpatient Condition: Fair Time of Disposition: 00:28 SOB HPI - General Chief Complaint: ED Shortness of Breath/Dyspnea Stated Complaint: HOMERO Time Seen by Provider: 04/16/17 22:40 Source: patient Limitations: no limitations Nursing Notes Reviewed: Yes Vital Signs Reviewed: Yes - History of Present Illness 61-year-old male history of COPD, DVTs, A. fib, on Coumadin, INR been therapeutic, has had shortness of breath for last few days, left leg swelling, recent states that he has had increase his home oxygen from 2 L at 3 L lately, he is having worse exertional dyspnea, orthopnea. Patient denies any chest pain , but states he just been having trouble taking a deep breath she has breath. Patient denies history of pulmonary embolus, denies fever chills or productive cough. Pt Subjective Complaint: shortness of breath Onset (ago): day(s) Severity: moderate Consistency/Duration: intermittent Improves with: oxygen Worsens with: lying flat Known history of: COPD, congestive heart failure, DVT Associated symptoms: Reports: pain with inspiration, cough, orthopnea. Denies: fever, lower extremity pain Treatment prior to arrival: oxygen Cough present: Yes Cough Description: Voluntary Cough Frequency: Intermittent Sputum Amount: Scant - Related Data Home Medications Medication Instructions Recorded Confirmed Alprazolam [Xanax] 1 mg PO BID PRN 11/16/14 04/17/17 Aspirin Enteric Coated [Aspirin EC] 81 mg PO DAILY 11/16/14 04/17/17 Furosemide [Lasix] 20 mg PO TID 11/16/14 04/17/17 Warfarin [Coumadin] 7.5 mg PO .SUMTWTHF 04/17/17 04/17/17 Warfarin [Coumadin] 10 mg PO .SAT 1800 04/17/17 04/17/17 Previous Rx's Medication Instructions Recorded Albuterol Neb [Proventil Neb] 2.5 mg IH [id number] inhsol 05/09/16 Carvedilol [Coreg] 6.25 mg PO BIDWM #60 tablet 05/09/16 Simvastatin [Zocor] 40 mg PO HS #30 tablet 05/09/16 Allergies Allergy/AdvReac Type Severity Reaction Status Date / Time Iodinated Contrast- Oral and Allergy Hives Verified 05/08/16 14:36 IV Dye [Iodinated Contrast Media - IV Dye] All systems ED: reviewed and negative except as stated. Review of Systems: As Per HPI Constitutional: Denies: fever, chills Eyes: Denies: eye pain, eye discharge ENT ED: Denies: ear pain Cardiovascular: Reports: chest pain Respiratory: Reports: as per HPI, cough, dyspnea. Denies: wheezes, hemoptysis, sputum production Gastrointestinal: Denies: abdominal pain, nausea Genitourinary: Denies: urgency, dysuria Musculoskeletal: Denies: back pain Integumentary: Denies: rash Neurological: Denies: headache, weakness Psychiatric: Denies: anxiety Endocrine: Denies: fatigue Past Medical History - Past Medical History Attestation: Yes The following information was validated with the patient. Source: patient Medical history: Reports: arthritis, cirrhosis, COPD, DVT, GERD, hyperlipidemia , hypertension, liver disease, osteoporosis, peripheral artery disease, SVT, syncope, other Surgical history: Reports: cholecystectomy, herniorrhaphy, orthopedic, other ( Percutaneous reduction and internal fixation Lisfranc dislocation fracture left foot), sinus surgery (Tympanoplasty/enterostomy tubes. Bilateral sinus surgery. ), vascular surgery (Aortobifemoral bypass graft), vasectomy, other Psychiatric history: Reports: anxiety, panic disorder, other - Social History Smoking Status: Former smoker Smokeless Tobacco Status: No Alcohol use: Reports: occasionally Drug use: Reports: none Physical Exam Constitutional: Morbidly obese male appears moderately uncomfortable mild respiratory distress tachypnea, hypoxic on 3 L satting 93% Eyes: PERRLA, sclera anicteric ENT & Mouth: MMM Neck: normal inspection, neck is supple Resp: Initial breath sounds bilaterally, expiratory wheezes. CV: RRR, no m/g/r GI: normal inspection, soft, no guarding or rigidity Neuro: A&O3, CNII-XII grossly intact, [place] Skin: on limited exam, skin intact with no rashes or lesions - General Limitations: no limitations General appearance: alert, in no apparent distress Course Course Narrative: 61-year-old male with probable COPD exacerbation versus CHF exacerbation versus possible PE, d-dimer ordered he does have a contrast dye allergy we will get a VQ scan has a history of DVT as well. His INRs have been therapeutic but I will check PT/INR basic lab work EKG shows no ischemic changes plan is for probable admission given new hypoxia - Reevaluation(s) Reevaluation #1: Patient has an elevated d-dimer however no possibility for VQ scan tonight given lack dye material, will admit patient for VQ scan, COPD exacerbation, new hypoxia. Ranjit paged Time: 00:26 Vital Signs Temperature 97.8 F 04/16/17 22:33 Pulse Rate 84 04/16/17 22:33 Respiratory Rate 16 04/16/17 22:33 Blood Pressure 163/100 04/16/17 22:33 O2 Sat by Pulse Oximetry 99 04/16/17 22:33 Temperature 97.8 F 04/16/17 22:33 Pulse Rate 68 04/17/17 02:05 Respiratory Rate 20 04/17/17 02:05 Blood Pressure 116/78 04/17/17 02:05 O2 Sat by Pulse Oximetry 96 04/17/17 02:05 Oxygen Delivery Oxygen Delivery Nasal Cannula Shortness of Breath/Dyspnea - [facility] Narrative Medical decision making narrative: 61-year-old male with shortness of breath, worsening exertional dyspnea admitted to hospital service for PE rule out COPD exacerbation - Differential Diagnosis Likely: acute exacerbation of chronic obstructive airways disease, congestive heart failure - Medical Records Medical records reviewed: Yes I reviewed the patient's medical records. - Lab Data Lab results reviewed: Yes I reviewed the patient's lab results. Result diagrams: 04/17/17 04:30 04/17/17 04:30 Lab Results 04/16/17 04/16/17 04/16/17 Range/Units 23:16 23:16 23:16 WBC 7.7 (4.3-11.1) K/mcL RBC 4.63 (4.19-5.50) M/mcL Hgb 15.0 (12.9-16.9) g/dL Hct 43.4 (37.5-50.1) % MCV 93.7 (83.0-100.0) fL MCH 32.4 (28.0-33.3) pg MCHC 34.6 (31.6-35.5) g/dL RDW 13.0 (11.5-14.5) % Plt Count 225 (140-400) K/mcL MPV 10.2 (9.4-12.4) fL Immature Gran % 0.3 (0-4) % Seg Neutrophils % 63.7 % Lymphocytes % 19.4 % Monocytes % 9.4 % Eosinophils % 6.8 % Basophils % 0.4 % Neutrophils # 4.9 (1.6-8.9) K/mcL Lymphocytes # 1.5 (0.6-4.6) K/mcL Monocytes # 0.7 (0.0-1.3) K/mcL Eosinophils # 0.5 (0.0-0.6) K/mcL Basophils # 0.0 (0.0-0.2) K/mcL PT 21.2 H (9.4-12.1) Seconds INR 1.9 APTT 37.6 H (26.0-36.0) Seconds D-Dimer 811 H (0-500) ng/mLFEU Sodium 138 (136-145) mEq/L Potassium 3.7 (3.5-5.1) mEq/L Chloride 104 (98-107) mEq/L Carbon Dioxide 28 (23-29) mEq/L BUN 16 (8-23) mg/dL Creatinine 1.27 (0.70-1.30) mg/dL Est GFR ( Amer) > 60 (> 60) Est GFR (Non-Af Amer) 57 L (> 60) BUN/Creatinine Ratio 13 (6-26) Glucose 115 H (70-105) mg/dL Calculated Osmolality 288 (280-300) Lactic Acid (0.5-2.2) mmol/L Calcium 9.3 (8.6-10.3) mg/dL Troponin I (< 0.04) ng/mL B-Natriuretic Peptide (Less than 100) pg/mL 04/16/17 04/16/17 04/16/17 Range/Units 23:16 23:16 23:16 WBC (4.3-11.1) K/mcL RBC (4.19-5.50) M/mcL Hgb (12.9-16.9) g/dL Hct (37.5-50.1) % MCV (83.0-100.0) fL MCH (28.0-33.3) pg MCHC (31.6-35.5) g/dL RDW (11.5-14.5) % Plt Count (140-400) K/mcL MPV (9.4-12.4) fL Immature Gran % (0-4) % Seg Neutrophils % % Lymphocytes % % Monocytes % % Eosinophils % % Basophils % % Neutrophils # (1.6-8.9) K/mcL Lymphocytes # (0.6-4.6) K/mcL Monocytes # (0.0-1.3) K/mcL Eosinophils # (0.0-0.6) K/mcL Basophils # (0.0-0.2) K/mcL PT (9.4-12.1) Seconds INR APTT (26.0-36.0) Seconds D-Dimer (0-500) ng/mLFEU Sodium (136-145) mEq/L Potassium (3.5-5.1) mEq/L Chloride (98-107) mEq/L Carbon Dioxide (23-29) mEq/L BUN (8-23) mg/dL Creatinine (0.70-1.30) mg/dL Est GFR ( Amer) (> 60) Est GFR (Non-Af Amer) (> 60) BUN/Creatinine Ratio (6-26) Glucose (70-105) mg/dL Calculated Osmolality (280-300) Lactic Acid 1.3 (0.5-2.2) mmol/L Calcium (8.6-10.3) mg/dL Troponin I < 0.03 (< 0.04) ng/mL B-Natriuretic Peptide 15 (Less than 100) pg/mL 04/17/17 Range/Units 00:49 WBC (4.3-11.1) K/mcL RBC (4.19-5.50) M/mcL Hgb (12.9-16.9) g/dL Hct (37.5-50.1) % MCV (83.0-100.0) fL MCH (28.0-33.3) pg MCHC (31.6-35.5) g/dL RDW (11.5-14.5) % Plt Count (140-400) K/mcL MPV (9.4-12.4) fL Immature Gran % (0-4) % Seg Neutrophils % % Lymphocytes % % Monocytes % % Eosinophils % % Basophils % % Neutrophils # (1.6-8.9) K/mcL Lymphocytes # (0.6-4.6) K/mcL Monocytes # (0.0-1.3) K/mcL Eosinophils # (0.0-0.6) K/mcL Basophils # (0.0-0.2) K/mcL PT (9.4-12.1) Seconds INR APTT (26.0-36.0) Seconds D-Dimer (0-500) ng/mLFEU Sodium (136-145) mEq/L Potassium (3.5-5.1) mEq/L Chloride (98-107) mEq/L Carbon Dioxide (23-29) mEq/L BUN (8-23) mg/dL Creatinine (0.70-1.30) mg/dL Est GFR ( Amer) (> 60) Est GFR (Non-Af Amer) (> 60) BUN/Creatinine Ratio (6-26) Glucose (70-105) mg/dL Calculated Osmolality (280-300) Lactic Acid 1.0 (0.5-2.2) mmol/L Calcium (8.6-10.3) mg/dL Troponin I (< 0.04) ng/mL B-Natriuretic Peptide (Less than 100) pg/mL - Radiology Data Radiology results reviewed: Yes I reviewed the patient's radiology results. - EKG Data EKG attestation: Yes I reviewed and interpreted this EKG. EKG shows normal: Reports: sinus rhythm Rate: Reports: normal (84 bpm NE 157 QRS [address] segment elevations or depressions flattened T waves in the lateral leads.) Interpretation: Reports: nonspecific ST-T wave changes - Core Measures AMI Core Measures Followed: No Attestation Statement - Attestation Attestation: I, Wili Burns MD, personally evaluated this patient and discussed their management with the resident physician. I reviewed the resident's note and agree with the documented findings, medical decision making, and plan of care. 61-year-old male with history of COPD presents to the emergency department with a complaint of increased shortness of breath for the past 2 days. There has been some cough with white sputum production. No fever. No chest pain. Patient states the symptoms are worse with lying down. On examination patient is a well-developed obese male in no acute distress. He is alert and oriented 3. There is no cyanosis or diaphoresis. Chest is nontender to palpation. Breath sounds are decreased bilaterally with a few faint scattered expiratory wheezes. Heart regular rate and rhythm. Abdomen soft and nontender with normal bowel sounds. Labs reviewed. D-dimer 811. Troponin and BNP normal. Chest x-ray negative. The hospitalist, Dr. Church, was consulted and accepted admission of the patient.
[2017-04-16 23:24] LABS: Basophils % 0.4 %; Eosinophils # 0.5 K/mcL (0.0-0.6); Eosinophils % 6.8 %; Hematocrit 43.4 % (37.5-50.1); Immature Granulocytes % 0.3 % (0-4); Lymphocytes # 1.5 K/mcL (0.6-4.6); Lymphocytes % 19.4 %; Mean Corpuscular HGB Conc 34.6 g/dL (31.6-35.5); Mean Corpuscular Hemoglobin 32.4 pg (28.0-33.3); Mean Corpuscular Volume 93.7 fL (83.0-100.0); Mean Platelet Volume 10.2 fL (9.4-12.4); Monocytes # 0.7 K/mcL (0.0-1.3); Monocytes % 9.4 %; Neutrophils # 4.9 K/mcL (1.6-8.9); Platelet Count 225 K/mcL (140-400); Red Blood Count 4.63 M/mcL (4.19-5.50); Segmented Neutrophils % 63.7 %
[2017-04-16 23:29] LABS: INR 1.9; Prothrombin Time 21.2 Seconds (9.4-12.1)
[2017-04-16 23:32] LABS: Activated Partial Thrombo Time 37.6 Seconds (26.0-36.0)
[2017-04-16 23:37] LABS: BUN/Creatinine Ratio 13 (6-26); Blood Urea Nitrogen 16 mg/dL (8-23); Calcium 9.3 mg/dL (8.6-10.3); Carbon Dioxide 28 mEq/L (23-29); Chloride 104 mEq/L (98-107); Glucose 115 mg/dL (70-105); Osmolality,Calculated 288 (280-300); Potassium 3.7 mEq/L (3.5-5.1); Sodium 138 mEq/L (136-145); eGFR For African Americans > 60 (> 60); eGFR For Non-African Americans 57 (> 60)
[2017-04-17] MEDS ORDERED: *HR* Warfarin 5 MG TABLET PO ONE (00:04)
[2017-04-17] MEDS ORDERED: Ondansetron 4 MG/2 ML VIAL IVP PRN (03:12)
[2017-04-17] MEDS ORDERED: Naloxone 0.4 MG/ML INJ IVP PRN (03:12)
[2017-04-17] MEDS ORDERED: Acetaminophen 325 MG TABLET PO PRN (03:12)
[2017-04-17] MEDS ORDERED: Ipratropium/Albuterol Neb 3 ML IH PRN (03:14)
[2017-04-17] MEDS ORDERED: ALPRAZolam 1 MG TABLET PO PRN (03:19)
--- NOTE | 2017-04-17 03:39 | Internal Med History&Physical ---
Date of Encounter: 04/17/17 Time of Encounter: 02:45 Assessment and Plan (1) Orthopnea Current visit: Yes Status: Acute Unclear etiology. Rule out acute CHF, PE. Chest x-ray reviewed independently- shows clear lung sánchez with no pleural effusion or focal infiltrates. Check transthoracic echocardiogram. Continue Lasix. D-dimer was noted to be elevated but patient does take Coumadin for atrial fibrillation. Ventilation perfusion lung scan has been ordered by emergency room, follow-up. Patient does use home oxygen, continue. (2) Chronic respiratory failure with hypoxia Current visit: Yes Status: Chronic Due to COPD. (3) Obesity (BMI 30-39.9) Current visit: Yes Status: Chronic (4) Chronic liver disease and cirrhosis Current visit: Yes Status: Chronic Alcoholic cirrhosis, diagnosed 3 years ago at which time he quit drinking alcohol. No history of sinusitis or encephalopathy. Continue supportive care. (5) Atrial fibrillation Current visit: Yes Status: Chronic Currently in sinus rhythm. Continue telemetry monitoring, beta jaimee. Noted to be on long-term anticoagulation with Coumadin, continue. Qualifiers: Atrial fibrillation type: chronic Qualified Code(s): I48.2 - Chronic atrial fibrillation (6) COPD (chronic obstructive pulmonary disease) Current visit: Yes Status: Chronic Not noted to be in acute exacerbation. Continue when necessary bronchodilators and supplemental oxygen. Qualifiers: COPD type: unspecified COPD Qualified Code(s): J44.9 - Chronic obstructive pulmonary disease, unspecified (7) PAD (peripheral artery disease) Current visit: Yes Status: Chronic Continue aspirin and statin. Patient follows with vascular surgery as outpatient and recently underwent arterial studies which showed minimally occlusive disease in left lower extremity, he does have a follow-up appointment on April 18. Internal Medicine - H&P: HPI Chief complaint: Orthopnea, dyspnea Admitted From: Emergency Dept Plans for Post Hospital Care: Home History of present illness: Mr. Aquino is a 61 year old male with history of COPD, peripheral arterial disease, atrial fibrillation, cirrhosis, who presents with complaints of shortness of breath. Patient reports 2 day history of shortness of breath, progressively worse. His symptoms are aggravated by lying down/orthopnea, not related to exertion. He denies fever, chills, cough, palpitations. He does have a history of COPD and is on home oxygen. He also has chronic leg swelling , left leg more than the right since undergoing left lower extremity bypass surgery 2 years ago. Past Med Surg Social Fam HX - Past Medical History Medical history: arthritis, atrial fibrillation, cirrhosis, COPD, DVT, GERD, hyperlipidemia, hypertension, liver disease, osteoporosis, peripheral artery disease Psychiatric history: anxiety, panic disorder, other - Past Surgical History Surgical History: cholecystectomy, herniorrhaphy (ventral), orthopedic, other, sinus surgery, vascular surgery (left leg bypass), vasectomy, other - Social History Smoking Status: Former smoker Smokeless Tobacco Status: No Alcohol use: none (quit), occasionally Drug use: none Occupational status: disabled Current living situation: Home, With Family Activity Level: Independent ambulation Recent Out of Country Travel Within the Last 8 Weeks: No Exposure or Possible Exposure to Illness During Travel: No - Family History Mother Hx Family Cancer: Yes (unknown primary) Internal Medicine - H&P: Meds Alprazolam [Xanax] 1 mg PO BID PRN 11/16/14 [History] Aspirin Enteric Coated [Aspirin EC] 81 mg PO DAILY 11/16/14 [History] Furosemide [Lasix] 20 mg PO TID 11/16/14 [History] Albuterol Neb [Proventil Neb] 2.5 mg IH [id number] inhsol 05/09/16 [Rx] Carvedilol [Coreg] 6.25 mg PO BIDWM #60 tablet 05/09/16 [Rx] Simvastatin [Zocor] 40 mg PO HS #30 tablet 05/09/16 [Rx] Warfarin [Coumadin] 7.5 mg PO .SUMTWTHF 04/17/17 [History] Warfarin [Coumadin] 10 mg PO .SAT 1800 04/17/17 [History] 3 Allergy/AdvReac Type Severity Reaction Status Date / Time Iodinated Contrast- Oral and Allergy Hives Verified 05/08/16 14:36 IV Dye [Iodinated Contrast Media - IV Dye] All Systems PM: A 10-system review of systems was performed and is negative for pertinent findings except as documented above in the HPI. - Constitutional Constitutional: no chills, no fever(s), no night sweats - EENT Eyes: no change in vision, no discharge, no pain, no photophobia Ears: no ear discharge, no ear pain, no tinnitus Nose, mouth and throat: no dysphagia, no nasal discharge, no neck pain, no sore throat - Cardiovascular Cardiovascular ROS IM: edema, orthopnea - Respiratory Respiratory: no cough, no dyspnea, no wheezing, no excessive phlegm production - Gastrointestinal Gastrointestinal: no abdominal pain, no diarrhea, no hematemesis, no hematochezia, no melena, no nausea, no vomiting - Musculoskeletal Musculoskeletal ROS IM: no numbness, no tingling - Integumentary Integumentary IM: no rash, no unusual bruising - Neurological Neurological ROS: no confusion, no convulsions, no focal weakness, no numbness, no tingling, no tremor(s) - Hematologic/Lymphatic Hematologic/Lymphatic: no easy bruising - Constitutional Vitals: Temp Pulse Resp BP Pulse Ox 97.8 F 68 20 116/78 96 04/16/17 22:33 04/17/17 02:05 04/17/17 02:05 04/17/17 02:05 04/17/17 02:05 General appearance: Present: A&O X 3, morbidly obese, answers questions appropriately - Respiratory Respiratory exam: Present: CTAB. Absent: accessory muscle use, rales, rhonchi, wheezes - Cardiovascular Cardiovascular exam: Present: RRR, +S1, +S2. Absent: diastolic murmur, gallop, rubs, systolic murmur - GI/Abdominal GI/Abdominal exam: Present: normal bowel sounds, soft (obese), no peritoneal signs. Absent: distended, tenderness - Extremities Exam Extremities exam: Present: full ROM, pedal edema (left>right pitting 2+ edema), warm, radial pulses palpable and symmetrical. Absent: calf tenderness, cyanotic - Neurological Exam Neurological exam: Present: CN II-XII intact, oriented X3, no focal deficits. Absent: pronater drift, facial droop, speech deficit Internal Med - H&P Results - Labs CBC & Chem 7: 04/17/17 04:30 04/17/17 04:30 - EKG Data -: EKG Interpreted by Myself EKG shows normal: sinus rhythm (flat T waves) Rate: normal
[2017-04-17 05:01] LABS: Basophils % 0.3 %; Eosinophils # 0.1 K/mcL (0.0-0.6); Eosinophils % 1.8 %; Hematocrit 44.2 % (37.5-50.1); Hemoglobin 14.9 g/dL (12.9-16.9); Immature Granulocytes % 0.4 % (0-4); Lymphocytes # 0.9 K/mcL (0.6-4.6); Mean Corpuscular HGB Conc 33.7 g/dL (31.6-35.5); Mean Corpuscular Hemoglobin 31.8 pg (28.0-33.3); Mean Corpuscular Volume 94.4 fL (83.0-100.0); Mean Platelet Volume 10.5 fL (9.4-12.4); Monocytes # 0.2 K/mcL (0.0-1.3); Monocytes % 2.9 %; Neutrophils # 5.9 K/mcL (1.6-8.9); Platelet Count 211 K/mcL (140-400); Red Blood Count 4.68 M/mcL (4.19-5.50); Red Cell Distribution Width 13.2 % (11.5-14.5); Segmented Neutrophils % 81.6 %
[2017-04-17 05:10] LABS: INR 2.1; Prothrombin Time 22.7 Seconds (9.4-12.1)
[2017-04-17 05:15] LABS: BUN/Creatinine Ratio 15 (6-26); Blood Urea Nitrogen 19 mg/dL (8-23); Calcium 9.3 mg/dL (8.6-10.3); Carbon Dioxide 28 mEq/L (23-29); Chloride 104 mEq/L (98-107); Glucose 130 mg/dL (70-105); Magnesium 1.9 mg/dL (1.6-2.6); Osmolality,Calculated 286 (280-300); Sodium 136 mEq/L (136-145); eGFR For African Americans > 60 (> 60); eGFR For Non-African Americans 58 (> 60)
[2017-04-17] MEDS: Aspirin Enteric Coated 81 MG Tablet PO SCH (08:30)
[2017-04-17] MEDS: Furosemide 20 MG TABLET PO SCH ×3 (08:30→17:02)
[2017-04-17 10:09] LABS: INR 2.3
--- NOTE | 2017-04-17 17:04 | Electrocardiograph Report ---
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
[2017-04-17] MEDS ORDERED: *HR* Warfarin 4 MG TABLET PO ONE (18:00)
[2017-04-17] MEDS ORDERED: *HR* Warfarin 7.5 MG TABLET PO ONE (18:00)
[2017-04-17] MEDS ORDERED: Warfarin perPT PO PRN (18:00)
--- NOTE | 2017-04-17 18:38 | Event Note ---
Date of Encounter: 04/17/17 Time of Encounter: 11:00 Patient was seen by certified emergency vehicle technician earlier this morning and also by myself Will continue duo nebs for possible COPD exacerbation
[2017-04-18 06:06] LABS: INR 2.6; Prothrombin Time 28.5 Seconds (9.4-12.1)
[2017-04-18] MEDS: Aspirin Enteric Coated 81 MG Tablet PO SCH (08:54)
[2017-04-18] MEDS: Furosemide 20 MG TABLET PO SCH ×3 (08:54→16:23)
[2017-04-18 08:56] LABS: Basophils % 0.4 %; Eosinophils # 0.2 K/mcL (0.0-0.6); Eosinophils % 2.4 %; Hematocrit 46.2 % (37.5-50.1); Hemoglobin 15.6 g/dL (12.9-16.9); Immature Granulocytes % 0.3 % (0-4); Lymphocytes # 1.9 K/mcL (0.6-4.6); Lymphocytes % 23.9 %; Mean Corpuscular HGB Conc 33.8 g/dL (31.6-35.5); Mean Corpuscular Hemoglobin 32.3 pg (28.0-33.3); Mean Corpuscular Volume 95.7 fL (83.0-100.0); Mean Platelet Volume 10.3 fL (9.4-12.4); Monocytes # 0.8 K/mcL (0.0-1.3); Monocytes % 9.6 %; Neutrophils # 5.1 K/mcL (1.6-8.9); Platelet Count 218 K/mcL (140-400); Red Blood Count 4.83 M/mcL (4.19-5.50); Red Cell Distribution Width 13.5 % (11.5-14.5); Segmented Neutrophils % 63.4 %
[2017-04-18 09:00] LABS: BUN/Creatinine Ratio 15 (6-26); Blood Urea Nitrogen 19 mg/dL (8-23); Calcium 8.9 mg/dL (8.6-10.3); Carbon Dioxide 33 mEq/L (23-29); Chloride 100 mEq/L (98-107); Glucose 152 mg/dL (70-105); Osmolality,Calculated 289 (280-300); Potassium 3.7 mEq/L (3.5-5.1); Sodium 137 mEq/L (136-145); eGFR For African Americans > 60 (> 60); eGFR For Non-African Americans 56 (> 60)
[2017-04-18 15:53] VITALS: BP 159/81
--- NOTE | 2017-04-18 16:44 | Discharge Summary ---
Date of Encounter: 04/18/17 Time of Encounter: 11:00 - Discharge Diagnosis (1) Chronic respiratory failure with hypoxia Priority: Secondary Status: Chronic (2) COPD exacerbation Priority: Primary Status: Acute - Discharge Medications Prescriptions: predniSONE [PredniSONE] 40 mg PO DAILY #10 tablet Home Medications: Alprazolam [Xanax] 1 mg PO TID PRN 11/16/14 [History] Aspirin Enteric Coated [Aspirin EC] 81 mg PO DAILY 11/16/14 [History] Furosemide [Lasix] 40 mg PO QAM 11/16/14 [History] Carvedilol [Coreg] 25 mg PO BID 04/17/17 [History] Furosemide [Lasix] 20 mg PO QPM 04/17/17 [History] Ipratropium/Albuterol Neb [Duoneb] 3 ml IH Q6HR 04/17/17 [History] Lovastatin [Altoprev] 40 mg PO DAILY 04/17/17 [History] Potassium Chloride [Klor-Con Sprinkle] 10 meq PO DAILY 04/17/17 [History] Warfarin [Coumadin] 7.5 mg PO SUMOTUWETHFR 04/17/17 [History] Warfarin [Coumadin] 10 mg PO SA 04/17/17 [History] predniSONE [PredniSONE] 40 mg PO DAILY #10 tablet 04/18/17 [Rx] Allergies/Adverse Reactions: 3 Allergy/AdvReac Type Severity Reaction Status Date / Time Iodinated Contrast- Oral and Allergy Hives Verified 05/08/16 14:36 IV Dye [Iodinated Contrast Media - IV Dye] Date of admission: 04/18/17 10:05 Primary care physician: Anjel Austin MD - Patient Status Disposition: Home, Self-Care Condition: Fair - Discharge Instructions Follow Up With: Anjel Austin MD [Primary Care Provider] - 04/25/17 9:45 am (Please follow up as schedule...) Hospital course: Patient is a 61-year-old male with past medical history significant for COPD, peripheral arterial disease, atrial fibrillation, cirrhosis, who presented to the ER on 04/17/17 with shortness of breath. Patient complaining of a 2 day history of shortness of breath that progressively got worse. Patient reported that his symptoms were aggravated by lying down/orthopnea, not related to exertion. He does have a history of COPD and is on home oxygen. He also has chronic leg swelling, left leg more than the right since undergoing left lower extremity bypass surgery 2 years ago. During patients hospital stay, his symptoms of shortness of breath resolved after treatment for COPD exacerbation with DuoNebs. Patient is currently on baseline oxygen requirements and will be discharged home to follow up with primary care provider and to complete a five-day course of prednisone. - Time Spent with Patient Total time spent providing and/or coordinating discharge services: Less than 30 minutes - Constitutional Vitals: Temp Pulse Resp BP Pulse Ox 97.4 F L 75 16 159/81 98 04/18/17 15:52 04/18/17 15:52 04/18/17 15:52 04/18/17 15:52 04/18/17 15:52 General appearance: Present: A&O X 3, morbidly obese, answers questions appropriately - Respiratory Respiratory exam: Present: CTAB. Absent: accessory muscle use, rales, rhonchi, wheezes - Cardiovascular Cardiovascular exam: Present: RRR, +S1, +S2. Absent: diastolic murmur, gallop, rubs, systolic murmur
[2017-04-18] MEDS ORDERED: *HR* Warfarin 2 MG TABLET PO ONE (18:00)
== END 2017-04-18 17:37 | disposition home or self-care (01) | DRG 190 ==
LOC: EMEROO 22:29 → 2ANU 22:29 → SUATTDRO 04-17 00:55 → 2ANU 04-17 01:24
PROVIDERS: ADMIT Internal Medicine; ATTEND Hospitalist

== ENCOUNTER 2017-08-20 13:38 | Inpatient (IN) ==
--- NOTE | 2017-08-20 13:48 | Emergency Department Note ---
Disposition Clinical Impression: Transient cerebral ischemia Qualifiers: Transient cerebral ischemia type: unspecified Qualified Code(s): G45.9 - Transient cerebral ischemic attack, unspecified Disposition: Admitted As Inpatient Condition: Fair Forms: ED Satisfaction Letter Time of Disposition: 14:54 Neuro HPI - General Chief Complaint: ED Neuro Symptoms/Deficit Stated Complaint: Neurro Symptoms Time Seen by Provider: 08/20/17 13:43 Source: patient, family Mode of arrival: wheelchair Limitations: no limitations Nursing Notes Reviewed: Yes Vital Signs Reviewed: Yes - History of Present Illness HPI Narrative: 61-year-old with acute onset of right upper extremity weakness that started at 12:30. Patient is on her friend as he is in atrial fibrillation. Onset of Symptoms Date: 08/20/17 Onset of Symptoms Time: 12:30 Symptom Onset Unknown: No Timing confirmed by: spouse Location: right face, right arm History of same: No Severity: moderate Quality: weakness, numbness Symptoms Improving: No On Anticoagulants: Yes - Related Data Home Medications: Home Medications Medication Instructions Recorded Confirmed Alprazolam [Xanax] 1 mg PO TID PRN 11/16/14 04/17/17 Aspirin Enteric Coated [Aspirin EC] 81 mg PO DAILY 11/16/14 04/17/17 Furosemide [Lasix] 40 mg PO QAM 11/16/14 04/17/17 Carvedilol [Coreg] 25 mg PO BID 04/17/17 04/17/17 Furosemide [Lasix] 20 mg PO QPM 04/17/17 04/17/17 Ipratropium/Albuterol Neb [Duoneb] 3 ml IH Q6HR 04/17/17 04/17/17 Lovastatin [Altoprev] 40 mg PO DAILY 04/17/17 04/17/17 Potassium Chloride [Klor-Con 10 meq PO DAILY 04/17/17 04/17/17 Sprinkle] Warfarin [Coumadin] 7.5 mg PO SUMOTUWETHFR 04/17/17 04/17/17 Warfarin [Coumadin] 10 mg PO SA 04/17/17 04/17/17 Previous Rx's Medication Instructions Recorded predniSONE [PredniSONE] 40 mg PO DAILY #10 tablet 04/18/17 Amoxicillin 875 mg PO BID #20 tablet 06/12/17 Sulfacetamide Sodium 10% OPTH 2 drop BOTH EYES QID #5 bottle 06/12/17 [Bleph 10] Amoxicillin [Amoxil] 500 mg PO BID #60 capsule 07/05/17 Allergies/Adverse Reactions: Allergies Allergy/AdvReac Type Severity Reaction Status Date / Time Iodinated Contrast- Oral and Allergy Hives Verified 08/20/17 13:51 IV Dye [Iodinated Contrast Media - IV Dye] All systems ED: reviewed and negative except as stated. Constitutional: Denies: fever, chills, weakness, weight change Eyes: Denies: eye pain, eye discharge, vision change ENT ED: Denies: ear pain, throat pain, dental pain, hearing loss, epistaxis, congestion, dysphagia Cardiovascular: Denies: chest pain, palpitations, dyspnea on exertion, edema, syncope Respiratory: Denies: cough, dyspnea, wheezes, hemoptysis, stridor Gastrointestinal: Denies: abdominal pain, nausea, vomiting, diarrhea, constipation, hematemesis, melena, hematochezia Genitourinary: Denies: urgency, dysuria, frequency, hematuria Musculoskeletal: Denies: back pain, neck pain, arthralgia, myalgia Integumentary: Denies: rash, abrasion, lesions Neurological: Reports: weakness, numbness. Denies: headache, paresthesias, confusion, abnormal gait, vertigo Psychiatric: Denies: anxiety, depression, suicidal thoughts, homicidal thoughts , auditory hallucinations, visual hallucinations Endocrine: Denies: fatigue Hematological/Lymphatic: Denies: easy bleeding, easy bruising Allergic/Immunologic: Denies: facial swelling, urticaria Past Medical History - Past Medical History Medical history: Reports: atrial fibrillation, cirrhosis, COPD, hypertension, other Surgical history: Reports: cholecystectomy, herniorrhaphy, orthopedic, other ( Percutaneous reduction and internal fixation Lisfranc dislocation fracture left foot), sinus surgery (Tympanoplasty/enterostomy tubes. Bilateral sinus surgery. ), vascular surgery (Aortobifemoral bypass graft), vasectomy, other Psychiatric history: Reports: anxiety, panic disorder, other - Social History Smoking Status: Former smoker Smokeless Tobacco Status: No Alcohol use: Reports: rarely (Remote history of alcoholism approximately 10 years. Now with rare intake for last 15 years.) Drug use: Reports: none Physical Exam - General Limitations: no limitations General appearance: alert, in no apparent distress - Head Head exam: atraumatic, normocephalic, normal inspection - Eye Eye exam: Present: normal appearance - ENT ENT exam: normal exam, normal oropharynx, mucous membranes moist - Neck Neck exam: Present: normal inspection, full ROM, trachea midline - Chest Chest inspection: Present: normal inspection - Respiratory Respiratory exam: Present: normal lung sounds bilaterally - Cardiovascular Cardiovascular exam: Present: tachycardia, irregular rhythm, normal heart sounds - Abdominal Exam Abdominal exam: Present: soft, Non-Tender. Absent: tenderness, distention, guarding, rebound, rigidity - Extremities Exam Extremities exam: Present: normal inspection, full ROM. Absent: tenderness, pedal edema - Expanded Lower Extremity Exam Neurovascular/Tendon exam: Present: normal capillary refill Gait: not tested/not observed - Back Exam Back exam: Present: normal inspection, full ROM. Absent: tenderness - Neurological Exam Neurological exam: Present: motor sensory deficit (Decreased sensation on the right arm also some drift on the right arm) - Psychiatric Psychiatric exam: Present: normal affect, normal mood - Skin Skin exam: Present: warm, dry, intact, normal color Course - Reevaluation(s) Reevaluation #1: 61-year-old male who had acute onset of right-sided arm weakness right-sided facial droop with some numbness of the right arm. His NIH was 3 started about an hour prior to arrival here in the ER. Patient is on warfarin with an INR of 2.5. Stroke alert was initiated patient was evaluated by Dr. Frank neurology at [facility] who indicated patient is not a TPA candidate Time: 14:55 - Consultations Consultation #1: Discussed with Dr. Shonda Frank neurology [facility] patient is not a TPA candidate due to some improvement in symptoms plus he is on warfarin with an INR of 2.5. Time: 14:52 Consultation #2: Discussed with Dr. Watts, admit. Time: 14:54 Vital Signs Temperature 97.6 F 08/20/17 13:54 Pulse Rate 91 08/20/17 13:54 Respiratory Rate 20 08/20/17 13:54 Blood Pressure 175/89 08/20/17 13:54 O2 Sat by Pulse Oximetry 97 08/20/17 13:54 Temperature 97.6 F 08/20/17 13:54 Pulse Rate 74 08/20/17 14:13 Respiratory Rate 20 08/20/17 14:13 Blood Pressure 173/91 08/20/17 14:13 O2 Sat by Pulse Oximetry 95 08/20/17 14:29 Oxygen Delivery Oxygen Delivery Room Air Neuro Symptoms/Deficit - Lab Data Result diagrams: 08/20/17 13:46 08/20/17 13:46 Lab Results 08/20/17 08/20/17 08/20/17 Range/Units 13:46 13:46 13:46 WBC 6.3 (4.3-11.1) K/mcL RBC 4.38 (4.19-5.50) M/mcL Hgb 14.4 (12.9-16.9) g/dL Hct 41.3 (37.5-50.1) % MCV 94.3 (83.0-100.0) fL MCH 32.9 (28.0-33.3) pg MCHC 34.9 (31.6-35.5) g/dL RDW 13.2 (11.5-14.5) % Plt Count 283 (140-400) K/mcL MPV 9.3 L (9.4-12.4) fL Immature Gran % 0.2 (0-4) % Seg Neutrophils % 49.9 % Lymphocytes % 28.8 % Monocytes % 14.5 % Eosinophils % 6.0 % Basophils % 0.6 % Neutrophils # 3.2 (1.6-8.9) K/mcL Lymphocytes # 1.8 (0.6-4.6) K/mcL Monocytes # 0.9 (0.0-1.3) K/mcL Eosinophils # 0.4 (0.0-0.6) K/mcL Basophils # 0.0 (0.0-0.2) K/mcL PT 28.0 H (9.4-12.1) Seconds INR 2.5 APTT 41.9 H (26.0-36.0) Seconds Sodium 137 (136-145) mEq/L Potassium 3.9 (3.5-5.1) mEq/L Chloride 104 (98-107) mEq/L Carbon Dioxide 28 (23-29) mEq/L BUN 15 (8-23) mg/dL Creatinine 1.27 (0.70-1.30) mg/dL Est GFR ( Amer) > 60 (> 60) Est GFR (Non-Af Amer) 57 L (> 60) BUN/Creatinine Ratio 12 (6-26) Glucose 74 (70-105) mg/dL Calculated Osmolality 283 (280-300) Calcium 9.0 (8.6-10.3) mg/dL Troponin I < 0.03 (< 0.04) ng/mL - EKG Data EKG attestation: Yes I reviewed and interpreted this EKG. EKG shows normal: sinus rhythm Rate: normal Rhythm: NSR [place]/QRS: normal Interpretation: nonspecific ST-T wave changes NIH Stroke Scale - Level of Consciousness LOC: Alert - LOC Questions LOC Questions: Answers both correctly - LOC Commands LOC Commands: Performs both correctly - Best Gaze Best Gaze: Normal - Visual Visual: No visual loss - Facial Palsy Facial Palsy: Minor asymmetry on smiling, flattened nasolabial fold - Motor Arms Motor Arm-Left: No drift for 10 seconds Motor Arm-Right: Drift, does NOT hit bed - Motor Legs Motor Leg-Left: No drift for 5 seconds Motor Leg-Right: No drift for 5 seconds - Limb Ataxia Limb Ataxia: Normal, No Ataxia - Sensory Sensory: Mild to moderate loss, "not as sharp" - Best Language Best Language: No aphasia - Dysarthria Dysarthria: Normal - Extinction and Inattention Extinction and Inattention: Normal - NIHSS Total Score NIHSS Total Score: 3 TPA Checklist - Eligibilty for IV tPA 1. LKW equal to or less than 4.5 hours be before treatment: Yes 2. Clinical diagnosis of ischemic stroke causing deficit: Yes 3. Age 18 years or older: Yes - Warnings/Precautions Considerations 16. Prior ischemic stroke within last 3 months: No 17. Recent history of intracranial hemorrhage: No 18. : No 19. Current/recent use Effient (7 days) or Brilinta (5 days): No 20. Arterial puncture at non compressible site or LP >7days: No 21. Major surgery or serious trauma in last 14 days: No 22. GI or urinary tract hemorrhage in last 21 days: No 23. SC involving left anterior myocardium in last 3 months: No 24. Suspected or known infective endocarditis/pericarditis: No - LKW: 3-4.5 hrs Add. Warnings/Precautions Patient/family understanding: The patient/family members have been counseled and understood the risk, benefit , and alternatives of treatment. Critical Care Time Critical Care Time: Yes Total Critical Care Time: 30 Attestation: The high probability of a clinically significant, sudden or life threatening deterioration of the [neurological] system(s) required my full and direct attention, intervention and personal management. The aggregate critical care time was [30] minutes. This time is in addition to time spent performing reported procedures but includes the following: [x] Data Review and interpretation [x] Patient assessment and monitoring of vital signs [x] Documentation [x] Medication orders and management
[2017-08-20 13:55] LABS: Basophils % 0.6 %; Eosinophils # 0.4 K/mcL (0.0-0.6); Hematocrit 41.3 % (37.5-50.1); Hemoglobin 14.4 g/dL (12.9-16.9); Immature Granulocytes % 0.2 % (0-4); Lymphocytes # 1.8 K/mcL (0.6-4.6); Lymphocytes % 28.8 %; Mean Corpuscular HGB Conc 34.9 g/dL (31.6-35.5); Mean Corpuscular Hemoglobin 32.9 pg (28.0-33.3); Mean Corpuscular Volume 94.3 fL (83.0-100.0); Mean Platelet Volume 9.3 fL (9.4-12.4); Monocytes # 0.9 K/mcL (0.0-1.3); Monocytes % 14.5 %; Neutrophils # 3.2 K/mcL (1.6-8.9); Platelet Count 283 K/mcL (140-400); Red Blood Count 4.38 M/mcL (4.19-5.50); Red Cell Distribution Width 13.2 % (11.5-14.5); Segmented Neutrophils % 49.9 %
[2017-08-20 14:01] LABS: INR 2.5
[2017-08-20 14:03] LABS: Activated Partial Thrombo Time 41.9 Seconds (26.0-36.0)
[2017-08-20 14:15] LABS: BUN/Creatinine Ratio 12 (6-26); Blood Urea Nitrogen 15 mg/dL (8-23); Carbon Dioxide 28 mEq/L (23-29); Chloride 104 mEq/L (98-107); Glucose 74 mg/dL (70-105); Osmolality,Calculated 283 (280-300); Potassium 3.9 mEq/L (3.5-5.1); Sodium 137 mEq/L (136-145); eGFR For African Americans > 60 (> 60); eGFR For Non-African Americans 57 (> 60)
[2017-08-20 14:16] LABS: Troponin I < 0.03 ng/mL (< 0.04)
[2017-08-20] MEDS ORDERED: Aspirin Enteric Coated 325 MG Tablet PO ONE (15:45)
[2017-08-20] MEDS ORDERED: Naloxone 0.4 MG/ML INJ IVP PRN (16:01)
[2017-08-20] MEDS ORDERED: Acetaminophen 325 MG TABLET PO PRN (16:01)
[2017-08-20] MEDS ORDERED: traMADol 50 MG TABLET PO PRN (16:01)
--- NOTE | 2017-08-20 16:08 | Internal Med History&Physical ---
<Piedad Aguilera - Last Filed: 08/20/17 16:05> Date of Encounter: 08/20/17 Time of Encounter: 16:05 Internal Medicine - H&P: HPI Admitted From: Home Plans for Post Hospital Care: Home History of present illness: Mr. Aquino is a 61 year old male with past medical history of atrial fibrillation on Coumadin, hypertension, heart hyperlipidemia, former smoker, and PVD presented with acute onset of right arm weakness. Per patient, he was driving today, when he suddenly had right arm weakness and numbness. He recorded time was 12:20 PM. His daughter drove him to the ER, where a CT head was performed, stroke alert was called. Per ER physician, [facility] did not think the patient was a candidate for TPA. The patient will be admitted as inpatient for further management. He denies fever, chills, or night sweats. He has no chest pain, shortness breath, or palpitation. Past Med Surg Social Fam HX - Past Medical History Medical history: atrial fibrillation, cirrhosis, COPD, hypertension, other Psychiatric history: anxiety, panic disorder, other - Past Surgical History Surgical History: cholecystectomy, herniorrhaphy, orthopedic, other ( Percutaneous reduction and internal fixation Lisfranc dislocation fracture left foot), sinus surgery (Tympanoplasty/enterostomy tubes. Bilateral sinus surgery. ), vascular surgery (Aortobifemoral bypass graft), vasectomy, other - Social History Smoking Status: Former smoker Smokeless Tobacco Status: No Alcohol use: rarely (Remote history of alcoholism approximately 10 years. Now with rare intake for last 15 years.) Drug use: none - Family History Mother Hx Family Cancer: Yes (unknown primary) Internal Medicine - H&P: Meds Alprazolam [Xanax] 0.5 mg PO TID PRN 11/16/14 [History] Aspirin Enteric Coated [Aspirin EC] 81 mg PO DAILY 11/16/14 [History] Furosemide [Lasix] 40 mg PO QAM 11/16/14 [History] Carvedilol [Coreg] 25 mg PO BID 04/17/17 [History] Furosemide [Lasix] 20 mg PO QPM 04/17/17 [History] Ipratropium/Albuterol Neb [Duoneb] 3 ml IH Q6HR 04/17/17 [History] Potassium Chloride [Klor-Con Sprinkle] 10 meq PO DAILY 04/17/17 [History] Warfarin [Coumadin] 7.5 mg PO SUMOTUWETHFR 04/17/17 [History] Warfarin [Coumadin] 10 mg PO SA 04/17/17 [History] 3 Allergy/AdvReac Type Severity Reaction Status Date / Time Iodinated Contrast- Oral and Allergy Hives Verified 08/20/17 15:12 IV Dye [Iodinated Contrast Media - IV Dye] All Systems PM: A 10-system review of systems was performed and is negative for pertinent findings except as documented above in the HPI. Review of systems: REVIEW OF SYSTEMS: CONSTITUTIONAL: No weight loss, fever, chills, weakness or fatigue. HEENT: Eyes: No visual loss, blurred vision, double vision or yellow sclerae. Ears, Nose, Throat: No hearing loss, sneezing, congestion, runny nose or sore throat. SKIN: No rash or itching. CARDIOVASCULAR: No chest pain, chest pressure or chest discomfort. No palpitations or edema. RESPIRATORY: No shortness of breath, cough or sputum. GASTROINTESTINAL: No anorexia, nausea, vomiting or diarrhea. No abdominal pain or blood. GENITOURINARY: No dysuria, urgency, or frequency. NEUROLOGICAL: No headache, dizziness, syncope, paralysis, ataxia, numbness or tingling in the extremities. No change in bowel or bladder control. MUSCULOSKELETAL: No muscle, back pain, joint pain or stiffness. HEMATOLOGIC: No anemia, bleeding or bruising. LYMPHATICS: No enlarged nodes. No history of splenectomy. PSYCHIATRIC: No history of depression or anxiety. ENDOCRINOLOGIC: No reports of sweating, cold or heat intolerance. No polyuria or polydipsia. - Constitutional Vitals: Temp Pulse Resp BP Pulse Ox 97.6 F 82 20 176/95 98 08/20/17 13:54 08/20/17 15:52 08/20/17 15:52 08/20/17 15:52 08/20/17 15:30 General appearance: Present: A&O X 3 Exam: PHYSICAL EXAMINATION: GENERAL APPEARANCE: The patient is alert, oriented and in no acute distress. HEENT: Head is normocephalic. The sinuses are nontender. Pupils are equal and reactive. The nares are patent. Oropharynx clear without lesions. NECK: Supple without lymphadenopathy. HEART: Regular rate and rhythm. LUNGS: No crackles or wheezes are heard. ABDOMEN: Soft, nontender, nondistended with good bowel sounds heard. Inguinal area is normal. EXTREMITIES: Without cyanosis, clubbing or edema. NEUROLOGICAL: right arm muscle strength 4/5, sensoory deficit to light touch and prioception. SKIN: Warm and dry without any rash. Internal Med - H&P Results - Labs CBC & Chem 7: 08/20/17 13:46 08/20/17 13:46 - Assessment and plan (1) Atrial fibrillation Current Visit: No Status: Chronic Assessment and plan: - Rate controlled, INR 2.5 today. Qualifiers: Atrial fibrillation type: chronic Qualified Code(s): I48.2 - Chronic atrial fibrillation (2) Hypertension Current Visit: No Status: Chronic Assessment and plan: - BP elevated, permissive hypertension for the first 24 hours per current guideline. If BP persistently elevated, will treat after 24 hours. Qualifiers: Hypertension type: essential hypertension Qualified Code(s): I10 - Essential (primary) hypertension (3) Dyslipidemia Current Visit: No Status: Chronic Assessment and plan: - Not on statins at home, restarted on atorvastatin 80 mg daily. - Repeat lipid panel in the morning. (4) PAD (peripheral artery disease) Current Visit: No Status: Chronic Assessment and plan: - Stable, continue telemetry monitoring. (5) COPD (chronic obstructive pulmonary disease) Current Visit: No Status: Chronic Assessment and plan: - Stable, continue home medication. Qualifiers: COPD type: unspecified COPD Qualified Code(s): J44.9 - Chronic obstructive pulmonary disease, unspecified (6) Stroke Current Visit: Yes Status: Acute Assessment and plan: 61 male with past medical history of atrial fibrillation, hypertension, hyperlipidemia, former smoker, and PVD presented with acute onset of right arm weakness and numbness. - he has history of atrial fibrillation and was on Coumadin, INR 2.5 today. Glucose 70. Stroke alert was called to [facility], per patient was not a candidate for TPA or intravascular intervention. - Aspirin 325 mg 1. Daily aspirin. Start patient on atorvastatin. - Bedside swallow evaluation, if passed, can resume diet and take oral medications. Continue telemetry monitoring, neuro check every 2 hours. - Carotid Doppler, echocardiogram, MRI brain, lipid panel in the morning. - Neurology consult Qualifiers: CVA mechanism: unspecified Qualified Code(s): I63.9 - Cerebral infarction, unspecified - Time Spent With Patient Total time spent is greater than 50% in coordination of care (as documented) at patient's floor/unit and/or counseling patient: Greater than 35 minutes <Grant Watts P - Last Filed: 08/21/17 19:36> Date of Encounter: 08/21/17 Internal Medicine - H&P: HPI History of present illness: Mr. Aquino is a 61 year old male All Systems PM: A 10-system review of systems was performed and is negative for pertinent findings except as documented above in the HPI. - Constitutional Vitals: Temp Pulse Resp BP Pulse Ox 97.6 F 80 18 128/59 97 08/21/17 19:10 08/21/17 19:10 08/21/17 19:10 08/21/17 19:10 08/21/17 19:10 Internal Med - H&P Results - Labs CBC & Chem 7: 08/21/17 04:16 08/21/17 04:16 Labs: Short CBC 08/21/17 Range/Units 04:16 WBC 5.8 (4.3-11.1) K/mcL Hgb 15.1 (12.9-16.9) g/dL Hct 43.9 (37.5-50.1) % Plt Count 265 (140-400) K/mcL Neutrophils # 2.7 (1.6-8.9) K/mcL BMP 08/21/17 04:16 Sodium 141 Potassium 3.8 Chloride 105 Carbon Dioxide 27 BUN 13 Creatinine 1.15 Glucose 92 Calcium 9.3 - Impressions ITS Impressions Echocardiogram 08/21/17 16:55 Impressions: LVEF 60%. Mild left ventricular diastolic dysfunction. Normal right ventricular structure and function. Mild tricuspid regurgitation. No pulmonary hypertension. No evidence of PFO with agitated saline contrast. Left Ventricular Wall Motion: Rest Echo Findings The mid inferior lateral and basal inferior lateral mayes were not visualized. All other wall segments showed normal motion. Findings: Study Quality * Technically adequate exam. ECG Findings * Normal sinus rhythm. Left Ventricle * LVEF 60%. * Mild basal septal hypertrophy. No LVOTO. * Mild left ventricular diastolic dysfunction. * Normal LV chamber size. Right Ventricle * Normal right ventricular structure and function. Left Atrium * Normal left atrial size. Right Atrium * Normal right atrial size. Aortic Valve * No aortic regurgitation. * Trileaflet aortic valve. * No aortic stenosis. Mitral Valve * Normal mitral valve structure. * No mitral regurgitation. * No mitral stenosis. * Mild mitral annular calcification Tricuspid Valve * Tricuspid valve not well visualized. * Mild tricuspid regurgitation. * Estimated RA pressure is 3 mmHg. * Estimated RVSP is 28 mmHg. * No pulmonary hypertension. Pulmonic Valve * Pulmonic valve is not well visualized. * No pulmonic stenosis. * No pulmonic regurgitation. Pulmonary Artery * Pulmonary artery not well visualized. Aorta * Normally sized aortic root. Pericardium * There is no pericardial effusion present. Interatrial Septum * No evidence of PFO by color Doppler. * No evidence of PFO with agitated saline contrast. IVC * Normal IVC dimensions and inspiratory collapse. - Attending Attestation I examined this patient and my medical decision-making was reviewed with the Resident Physician. I agree with the documented findings, disposition and treatment plan as described except to the extent set forth below. stroke alert in ED evaluated by [facility] teleneurology will follow recommendations - Assessment and plan (1) PAD (peripheral artery disease) Current Visit: No Status: Chronic (2) COPD (chronic obstructive pulmonary disease) Current Visit: No Status: Chronic Qualifiers: COPD type: unspecified COPD Qualified Code(s): J44.9 - Chronic obstructive pulmonary disease, unspecified (3) Hypertension Current Visit: No Status: Chronic Qualifiers: Hypertension type: essential hypertension Qualified Code(s): I10 - Essential (primary) hypertension (4) Dyslipidemia Current Visit: No Status: Chronic (5) Atrial fibrillation Current Visit: No Status: Chronic Qualifiers: Atrial fibrillation type: chronic Qualified Code(s): I48.2 - Chronic atrial fibrillation (6) Stroke Current Visit: Yes Status: Acute Qualifiers: CVA mechanism: unspecified Qualified Code(s): I63.9 - Cerebral infarction, unspecified - Time Spent With Patient Total time spent is greater than 50% in coordination of care (as documented) at patient's floor/unit and/or counseling patient:
[2017-08-20] MEDS ORDERED: Ipratropium/Albuterol Neb 3 ML IH SCH (18:00)
[2017-08-20] MEDS: Furosemide 20 MG TABLET PO SCH (18:31)
[2017-08-20] MEDS: *HR* Warfarin 5 MG TABLET PO SCH (18:31)
[2017-08-20] MEDS: Ipratropium/Albuterol Neb 3 ML IH SCH (21:13)
[2017-08-20] MEDS: ALPRAZolam 1 MG TABLET PO PRN (21:25)
[2017-08-21 04:31] LABS: Basophils % 0.7 %; Eosinophils # 0.4 K/mcL (0.0-0.6); Eosinophils % 6.7 %; Hematocrit 43.9 % (37.5-50.1); Hemoglobin 15.1 g/dL (12.9-16.9); Immature Granulocytes % 0.2 % (0-4); Lymphocytes # 2.1 K/mcL (0.6-4.6); Lymphocytes % 35.3 %; Mean Corpuscular HGB Conc 34.4 g/dL (31.6-35.5); Mean Corpuscular Hemoglobin 32.2 pg (28.0-33.3); Mean Corpuscular Volume 93.6 fL (83.0-100.0); Mean Platelet Volume 9.3 fL (9.4-12.4); Monocytes # 0.7 K/mcL (0.0-1.3); Monocytes % 11.7 %; Neutrophils # 2.7 K/mcL (1.6-8.9); Platelet Count 265 K/mcL (140-400); Red Blood Count 4.69 M/mcL (4.19-5.50); Red Cell Distribution Width 13.3 % (11.5-14.5); Segmented Neutrophils % 45.4 %
[2017-08-21] MEDS: Ipratropium/Albuterol Neb 3 ML IH SCH ×4 (04:44→21:39)
[2017-08-21 04:50] LABS: BUN/Creatinine Ratio 11 (6-26); Blood Urea Nitrogen 13 mg/dL (8-23); Calcium 9.3 mg/dL (8.6-10.3); Carbon Dioxide 27 mEq/L (23-29); Chloride 105 mEq/L (98-107); Chol/HDL Ratio 9.4 (0-4.9); Cholesterol 262 mg/dL (< 200); Glucose 92 mg/dL (70-105); HDL Cholesterol 28 mg/dL (40-59); Osmolality,Calculated 292 (280-300); Potassium 3.8 mEq/L (3.5-5.1); Sodium 141 mEq/L (136-145); Triglycerides 525 mg/dL (< 150); eGFR For African Americans > 60 (> 60); eGFR For Non-African Americans > 60 (> 60)
[2017-08-21] MEDS: Furosemide 20 MG TABLET PO SCH ×2 (08:21→16:40)
[2017-08-21] MEDS: Aspirin Enteric Coated 81 MG Tablet PO SCH (08:21)
[2017-08-21 08:32] LABS: INR 2.5; Prothrombin Time 27.7 Seconds (9.4-12.1)
[2017-08-21] MEDS: ALPRAZolam 1 MG TABLET PO PRN ×2 (11:27→16:40)
--- NOTE | 2017-08-21 12:43 | Electrocardiograph Report ---
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
[2017-08-21] MEDS: *HR* Warfarin 5 MG TABLET PO SCH (16:57)
[2017-08-21] MEDS ORDERED: Warfarin perPT PO PRN (18:00)
--- NOTE | 2017-08-21 20:31 | Internal Med Progress Note ---
Date of Encounter: 08/21/17 Time of Encounter: 14:37 - Assessment and plan (1) Stroke Current Visit: Yes Status: Acute Assessment and plan: Right arm numbness greatly improved; no weakness. Continue coumdain, aspirin, and atorvastatin. Continue telemetry. MRI brain and carotid doppler pending. ECHO showed LVEF 60%, mild LV diastolic dysfunction, normal RV structure and function, mild tricuspid regurgitation, and no pulmonary hypertension. Will consider neurology consult if any of stroke workup is positive or if symptoms do not continue to improve. Qualifiers: CVA mechanism: unspecified Qualified Code(s): I63.9 - Cerebral infarction, unspecified (2) PAD (peripheral artery disease) Current Visit: Yes Status: Chronic Assessment and plan: Continue home medications. (3) COPD (chronic obstructive pulmonary disease) Current Visit: Yes Status: Chronic Assessment and plan: Continue home medications. Qualifiers: COPD type: unspecified COPD Qualified Code(s): J44.9 - Chronic obstructive pulmonary disease, unspecified (4) Hypertension Current Visit: Yes Status: Chronic Assessment and plan: BP now normal. Continue home medications. Qualifiers: Hypertension type: essential hypertension Qualified Code(s): I10 - Essential (primary) hypertension (5) Dyslipidemia Current Visit: Yes Status: Chronic Assessment and plan: Continue atorvastatin 80 mg QHS. (6) Atrial fibrillation Current Visit: Yes Status: Chronic Assessment and plan: Rate controlled. Continue home medications including coumadin. INR = 2.5 today. Qualifiers: Atrial fibrillation type: chronic Qualified Code(s): I48.2 - Chronic atrial fibrillation (7) DVT prophylaxis Current Visit: No Status: Acute Assessment and plan: Continue home coumadin managed by pharmacist. - Time Spent With Patient Total time spent is greater than 50% in coordination of care (as documented) at patient's floor/unit and/or counseling patient: less than 15 minutes - Subjective Interval history: Patient had no acute events overnight. She states that right arm "numbness" is greatly improved, but not resolved. He denies any weakness or motor deficits. He also denies any other focal neurological deficits. He denies fever, chills, chest pain, SOB, nausea, or vomiting. He has no other complaints. - Constitutional Vitals: Temp Pulse Resp BP Pulse Ox 97.6 F 80 18 128/59 97 08/21/17 19:10 08/21/17 19:10 08/21/17 19:10 08/21/17 19:10 08/21/17 19:10 General appearance: Present: cooperative, A&O X 3, pleasant, no acute distress, answers questions appropriately - Respiratory Respiratory exam: Present: CTAB. Absent: accessory muscle use, rales, rhonchi, wheezes Additional comments: Normal WOB - Cardiovascular Cardiovascular exam: Present: RRR, +S1, +S2. Absent: diastolic murmur, gallop, rubs, systolic murmur Additional comments: No BLE edema - GI/Abdominal GI/Abdominal exam: Present: normal bowel sounds, soft. Absent: distended, hepatomegaly, mass, splenomegaly, tenderness - Neurological Exam Neurological exam: Present: alert, CN II-XII intact, oriented X3, strengths equal and symetr throughout. Absent: motor sensory deficit, facial droop, speech deficit - Psychiatric Psychiatric exam: Present: normal affect, normal mood. Absent: agitated, anxious, depressed - Skin Skin exam: Present: dry, intact, warm. Absent: cyanosis, rash Internal Medicine: Result - Labs CBC & Chem 7: 08/21/17 04:16 08/21/17 04:16 Labs: Short CBC 08/21/17 Range/Units 04:16 WBC 5.8 (4.3-11.1) K/mcL Hgb 15.1 (12.9-16.9) g/dL Hct 43.9 (37.5-50.1) % Plt Count 265 (140-400) K/mcL Neutrophils # 2.7 (1.6-8.9) K/mcL BMP 08/21/17 04:16 Sodium 141 Potassium 3.8 Chloride 105 Carbon Dioxide 27 BUN 13 Creatinine 1.15 Glucose 92 Calcium 9.3 - ABG Interpretation ABG results: PT/INR, D-dimer PT 27.7 Seconds (9.4-12.1) H 08/21/17 08:01 - Impressions Impressions Echocardiogram 08/21/17 16:55 Impressions: LVEF 60%. Mild left ventricular diastolic dysfunction. Normal right ventricular structure and function. Mild tricuspid regurgitation. No pulmonary hypertension. No evidence of PFO with agitated saline contrast. Left Ventricular Wall Motion: Rest Echo Findings The mid inferior lateral and basal inferior lateral mayes were not visualized. All other wall segments showed normal motion. Findings: Study Quality * Technically adequate exam. ECG Findings * Normal sinus rhythm. Left Ventricle * LVEF 60%. * Mild basal septal hypertrophy. No LVOTO. * Mild left ventricular diastolic dysfunction. * Normal LV chamber size. Right Ventricle * Normal right ventricular structure and function. Left Atrium * Normal left atrial size. Right Atrium * Normal right atrial size. Aortic Valve * No aortic regurgitation. * Trileaflet aortic valve. * No aortic stenosis. Mitral Valve * Normal mitral valve structure. * No mitral regurgitation. * No mitral stenosis. * Mild mitral annular calcification Tricuspid Valve * Tricuspid valve not well visualized. * Mild tricuspid regurgitation. * Estimated RA pressure is 3 mmHg. * Estimated RVSP is 28 mmHg. * No pulmonary hypertension. Pulmonic Valve * Pulmonic valve is not well visualized. * No pulmonic stenosis. * No pulmonic regurgitation. Pulmonary Artery * Pulmonary artery not well visualized. Aorta * Normally sized aortic root. Pericardium * There is no pericardial effusion present. Interatrial Septum * No evidence of PFO by color Doppler. * No evidence of PFO with agitated saline contrast. IVC * Normal IVC dimensions and inspiratory collapse. Consult Discharge Plan - Plan Referrals: Anjel Austin MD [Primary Care Provider] -
[2017-08-22] MEDS: Ipratropium/Albuterol Neb 3 ML IH SCH ×2 (03:04→10:33)
[2017-08-22 06:12] LABS: INR 2.7; Prothrombin Time 29.2 Seconds (9.4-12.1)
[2017-08-22] MEDS: Furosemide 20 MG TABLET PO SCH (08:06)
[2017-08-22] MEDS: Aspirin Enteric Coated 81 MG Tablet PO SCH (08:06)
[2017-08-22 10:31] VITALS: BP 149/81
[2017-08-22] MEDS: ALPRAZolam 1 MG TABLET PO PRN (10:44)
--- NOTE | 2017-08-22 14:37 | Discharge Summary ---
- NOTES TO OUTPATIENT PROVIDER Notes to Outpatient Provider: Follow up with PCP in 2-3 days after discharge. Orders not resulted at time of discharge: Pending orders 08/23/17 04:00 PT/INR [Prothrombin Time INR] [COAG] AM 0400 08/24/17 04:00 PT/INR [Prothrombin Time INR] [COAG] AM 0400 08/25/17 04:00 PT/INR [Prothrombin Time INR] [COAG] AM 0400 Date of Encounter: 08/22/17 Time of Encounter: 14:35 - Discharge Diagnosis (1) Stroke Priority: Primary Status: Ruled-out Qualifiers: CVA mechanism: unspecified Qualified Code(s): I63.9 - Cerebral infarction, unspecified (2) PAD (peripheral artery disease) Priority: Secondary Status: Chronic (3) COPD (chronic obstructive pulmonary disease) Priority: Secondary Status: Chronic Qualifiers: COPD type: unspecified COPD Qualified Code(s): J44.9 - Chronic obstructive pulmonary disease, unspecified (4) Hypertension Priority: Secondary Status: Chronic Qualifiers: Hypertension type: essential hypertension Qualified Code(s): I10 - Essential (primary) hypertension (5) Dyslipidemia Priority: Secondary Status: Chronic (6) Atrial fibrillation Priority: Secondary Status: Chronic Qualifiers: Atrial fibrillation type: chronic Qualified Code(s): I48.2 - Chronic atrial fibrillation (7) DVT prophylaxis Priority: Secondary Status: Acute Hospital course: Mr. Aquino is a 61 year old male admitted for right arm numbness and stroke rule-out. Patient was admitted to general medical floor with telemetry. He was started on lipitor 80 mg QHS. ECHO, MRI brain, and carotid dopplers were obtained. ECHO showed LVEF 60%, mild LV diastolic dysfunction, normal RV structure and function, mild tricuspid regurgitation, no pulmonary hypertension , and no evidence of PFO. MRI brain showed no acute infarct/hemorrhage/mass effect, chronic small vessel disease, and no high-grade stenosis or focal occlusion involving the intracranial vasculature. Carotid dopplers showed non- stenotic plaque bilaterally. Right arm numbness has progressively improved each day. He will follow up about this with PCP in 2-3 days after discharge. Patient has met maximum benefit of this hospitalization and will be discharged home in stable condition. Discharge discussed with: patient, family, nurse, social work, other (Pharmacist ) - Time Spent with Patient Total time spent providing and/or coordinating discharge services: Greater than 30 minutes - Discharge Medications Prescriptions: Atorvastatin [Lipitor] 80 mg PO HS 7 Days #14 tablet Home Medications: Alprazolam [Xanax] 0.5 mg PO TID PRN 11/16/14 [History] Aspirin Enteric Coated [Aspirin EC] 81 mg PO DAILY 11/16/14 [History] Furosemide [Lasix] 40 mg PO QAM 11/16/14 [History] Carvedilol [Coreg] 25 mg PO BID 04/17/17 [History] Furosemide [Lasix] 20 mg PO QPM 04/17/17 [History] Ipratropium/Albuterol Neb [Duoneb] 3 ml IH Q6HR 04/17/17 [History] Potassium Chloride [Klor-Con Sprinkle] 10 meq PO DAILY 04/17/17 [History] Warfarin [Coumadin] 7.5 mg PO [id number] 04/17/17 [History] Warfarin [Coumadin] 10 mg PO SA 04/17/17 [History] Atorvastatin [Lipitor] 80 mg PO HS 7 Days #14 tablet 08/22/17 [Rx] Allergies/Adverse Reactions: 3 Allergy/AdvReac Type Severity Reaction Status Date / Time Iodinated Contrast- Oral and Allergy Hives Verified 08/20/17 15:12 IV Dye [Iodinated Contrast Media - IV Dye] Date of admission: 08/20/17 16:01 Primary care physician: Anjel Austin MD Discharging clinician: Judah Pavon Anticipated date of discharge: 08/22/17 - Constitutional Vitals: Temp Pulse Resp BP Pulse Ox 98 F 77 18 149/81 95 08/22/17 10:26 08/22/17 10:26 08/22/17 10:26 08/22/17 10:26 08/22/17 10:26 General appearance: Present: cooperative, A&O X 3, pleasant, no acute distress, answers questions appropriately - Respiratory Respiratory exam: Present: CTAB. Absent: accessory muscle use, rales, rhonchi, wheezes Additional comments: Normal WOB - Cardiovascular Cardiovascular exam: Present: RRR, +S1, +S2. Absent: diastolic murmur, gallop, rubs, systolic murmur Additional comments: No BLE edema - GI/Abdominal GI/Abdominal exam: Present: normal bowel sounds, soft. Absent: distended, hepatomegaly, mass, splenomegaly, tenderness - Neurological Exam Neurological exam: Present: alert, CN II-XII intact, normal gait, oriented X3, no focal deficits, strengths equal and symetr throughout. Absent: motor sensory deficit, facial droop, speech deficit - Psychiatric Psychiatric exam: Present: normal affect, normal mood. Absent: agitated, anxious, depressed - Skin Skin exam: Present: dry, intact, warm. Absent: cyanosis, rash - Patient Status Disposition: Home, Self-Care Condition: Good Overall status at discharge: patient is progressing back to baseline - Discharge Instructions Follow Up With: Anjel Austin MD [Primary Care Provider] - Additional Instructions: Follow up with PCP in 2-3 days after discharge. - Diet and Activity Activity: resume usual activities as tolerated Diet: low fat, low cholesterol, low salt diet, other (Cardiac Diet)
[2017-08-22] MEDS ORDERED: *HR* Warfarin 2.5 MG TABLET PO ONE (18:00)
[2017-08-25] MEDS ORDERED: *HR* Warfarin 10 MG TABLET PO SCH (18:00)
== END 2017-08-22 15:50 | disposition home or self-care (01) | DRG 93 ==
LOC: EMEROO 13:38 → 2ANU 13:38
PROVIDERS: ADMIT Student in an Organized Health Care Education/Training Program; ATTEND Internal Medicine

== ENCOUNTER 2019-04-01 17:02 | Inpatient (IN) ==
[~2019-04-01 17:02] MED LIST: Azithromycin 500 MG in D5% in Water 250 ML IVPB SCH
[2019-04-01] MEDS ORDERED: Ipratropium/Albuterol Neb 3 ML IH ONE (17:44)
[2019-04-01 18:02] LABS: ABG Base Excess 5 mEq/L (-2 to 3); ABG HCO3 31 mEq/L (21-27); ABG Oxygen Saturation 91 % (95-98); ABG PCO2 51 mmHg (35-45); ABG PH 7.39 pH Units (7.32-7.45); ABG PO2 63 mmHg (85-104); ABG TCO2 32 mEq/L (20-26)
[2019-04-01 18:11] LABS: Basophils % 0.5 %; Eosinophils # 0.4 K/mcL (0.0-0.6); Eosinophils % 7.8 %; Hematocrit 39.5 % (37.5-50.1); Immature Granulocytes % 0.4 % (0-4); Lymphocytes # 1.3 K/mcL (0.6-4.6); Lymphocytes % 23.9 %; Mean Corpuscular HGB Conc 35.4 g/dL (31.6-35.5); Mean Corpuscular Hemoglobin 34.2 pg (28.0-33.3); Mean Corpuscular Volume 96.6 fL (83.0-100.0); Mean Platelet Volume 9.8 fL (9.4-12.4); Monocytes # 0.6 K/mcL (0.0-1.3); Monocytes % 10.7 %; Neutrophils # 3.1 K/mcL (1.6-8.9); Platelet Count 287 K/mcL (140-400); Red Blood Count 4.09 M/mcL (4.19-5.50); Red Cell Distribution Width 13.6 % (11.5-14.5); Segmented Neutrophils % 56.7 %; White Blood Count 5.5 K/mcL (4.3-11.1)
[2019-04-01 18:31] LABS: INR 2.6; Prothrombin Time 29.5 Seconds (9.4-12.1)
[2019-04-01 18:35] LABS: Activated Partial Thrombo Time 47.9 Seconds (26.0-36.0)
[2019-04-01 19:02] LABS: Bilirubin,Urine Negative (Negative); Blood,Urine Negative (Negative); Clarity,Urine Clear (Clear); Color,Urine Yellow (Yellow); Glucose,Urine (UA) Normal (Normal); Ketones,Urine Negative (Negative); Leukocyte Esterase,Urine Negative (Negative); Nitrite,Urine Negative (Negative); PH,Urine 6.5 pH Units (5.0-8.0); Protein,Urine Trace mg/dL (Neg-Trace); Specific Gravity,Urine 1.019 (1.010-1.025); Urobilinogen,Urine Normal (Normal)
[2019-04-01 19:09] LABS: Amphetamine Screen,Urine Negative ng/mL (Cutoff=1000); Barbiturate Screen,Urine Negative ng/mL (Cutoff=200); Benzodiazepines Screen,Urine Negative ng/mL (Cutoff=200); Cannabinoid Screen,Urine Negative ng/mL (Cutoff = 50); Cocaine Screen,Urine Negative ng/mL (Cutoff= 300); Opiate Screen,Urine Negative ng/mL (Cutoff=300); Phencyclidine Screen,Urine Negative ng/mL (Cutoff=25)
[2019-04-01 19:38] LABS: Alanine Aminotransferase 36 Units/L (7-52); Albumin 4.1 g/dL (3.5-5.7); Albumin/Globulin Ratio 1.8 (1.1-2.2); Alkaline Phosphatase 42 Units/L (34-104); Aspartate Amino Transferase 35 Units/L (13-39); BUN/Creatinine Ratio 20 (6-26); Bilirubin,Direct 0.2 mg/dL (0.0-0.2); Bilirubin,Indirect 0.4 mg/dL (0.0-1.0); Bilirubin,Total 0.6 mg/dL (0.3-1.0); Blood Urea Nitrogen 28 mg/dL (8-23); Calcium 8.5 mg/dL (8.6-10.3); Carbon Dioxide 29 mEq/L (23-29); Chloride 101 mEq/L (98-107); Ethanol < 10 mg/dL (Less than 10); Globulin 2.3 g/dL (2.4-3.5); Glucose 108 mg/dL (70-105); Osmolality,Calculated 294 (280-300); Potassium 3.5 mEq/L (3.5-5.1); Sodium 139 mEq/L (136-145); Total Protein 6.4 g/dL (6.4-8.9); Troponin I < 0.03 ng/mL (< 0.04); eGFR For African Americans > 60 (> 60); eGFR For Non-African Americans 50 (> 60)
[2019-04-01] MEDS ORDERED: methylPREDNISolone 125 MG/2 ML VIAL IVP ONE (20:13)
[2019-04-01] MEDS ORDERED: Azithromycin 500 MG in 0.9 % Sodium Chloride 250 ML IVPB ONE (20:30)
[2019-04-01] MEDS ORDERED: Acetaminophen 325 MG TABLET PO PRN (22:44)
[2019-04-01] MEDS ORDERED: GuaiFENesin Liq 200 MG/10 ML UDC PO PRN (22:44)
[2019-04-01] MEDS ORDERED: Ondansetron 4 MG/2 ML VIAL IVP PRN (22:44)
[2019-04-01] MEDS ORDERED: Furosemide 40 MG/4 ML VIAL IVP ONE (22:57)
[2019-04-01] MEDS: Ipratropium/Albuterol Neb 3 ML IH SCH (23:28)
[2019-04-01] MEDS ORDERED: *HR* Warfarin 5 MG TABLET PO ONE (23:45)
[2019-04-02] MEDS: Ipratropium/Albuterol Neb 3 ML IH SCH ×5 (03:59→20:03)
[2019-04-02 04:33] LABS: INR 2.6; Prothrombin Time 29.5 Seconds (9.4-12.1)
[2019-04-02 04:34] LABS: VBG HCO3 28 mEq/L (21-27); VBG PCO2 56 mmHg (41-51); VBG PO2 62 mmHg (25-50)
[2019-04-02 04:56] LABS: Potassium 3.6 mEq/L (3.5-5.1)
[2019-04-02] MEDS: MethylPREDNISolone 40 MG/ML VIAL IVP SCH ×3 (09:39→23:59)
[2019-04-02] MEDS ORDERED: *HR* Metoprolol 5 MG/5 ML VIAL IVP ONE (09:50)
[2019-04-02] MEDS ORDERED: *HR* Warfarin 5 MG TABLET PO ONE (18:00)
[2019-04-02] MEDS ORDERED: Warfarin perPT PO PRN (18:00)
[2019-04-02] MEDS ORDERED: Azithromycin 500 MG in D5% in Water 250 ML IVPB SCH (22:00)
[2019-04-03] MEDS: Ipratropium/Albuterol Neb 3 ML IH SCH ×5 (00:06→15:36)
[2019-04-03] MEDS: clonazePAM 0.5 MG TABLET PO SCH ×3 (01:56→15:44)
[2019-04-03 04:38] LABS: ABG Base Excess 2 mEq/L (-2 to 3); ABG HCO3 28 mEq/L (21-27); ABG Oxygen Saturation 97 % (95-98); ABG PCO2 44 mmHg (35-45); ABG PO2 93 mmHg (85-104); ABG TCO2 29 mEq/L (20-26)
[2019-04-03 05:38] LABS: Hematocrit 36.5 % (37.5-50.1); Mean Corpuscular Hemoglobin 33.2 pg (28.0-33.3); Mean Corpuscular Volume 97.6 fL (83.0-100.0); Mean Platelet Volume 10.1 fL (9.4-12.4); Platelet Count 222 K/mcL (140-400); Red Blood Count 3.74 M/mcL (4.19-5.50); Red Cell Distribution Width 13.8 % (11.5-14.5)
[2019-04-03 05:46] LABS: Hemoglobin 12.4 g/dL (12.9-16.9); White Blood Count 13.9 K/mcL (4.3-11.1)
[2019-04-03 05:53] LABS: BUN/Creatinine Ratio 21 (6-26); Blood Urea Nitrogen 29 mg/dL (8-23); Calcium 8.5 mg/dL (8.6-10.3); Carbon Dioxide 27 mEq/L (23-29); Chloride 102 mEq/L (98-107); Glucose 187 mg/dL (70-105); Osmolality,Calculated 291 (280-300); Sodium 135 mEq/L (136-145); eGFR For African Americans > 60 (> 60); eGFR For Non-African Americans 53 (> 60)
[2019-04-03 06:44] LABS: INR 2.8; Prothrombin Time 32.1 Seconds (9.4-12.1)
[2019-04-03] MEDS: MethylPREDNISolone 40 MG/ML VIAL IVP SCH ×2 (08:09→15:44)
[2019-04-03 15:14] VITALS: BP 142/73
[2019-04-03] MEDS ORDERED: *HR* Warfarin 5 MG TABLET PO ONE (18:00)
[2019-04-04] MEDS ORDERED: predniSONE 20 MG TABLET PO SCH (09:00)
[2019-04-04] MEDS ORDERED: Azithromycin 250 MG TABLET PO SCH (09:00)
== END 2019-04-03 18:34 | disposition home or self-care (01) | DRG 190 ==
LOC: 3ANU 17:02 → EMEROOARM 17:02 → SUATTDRO 21:49 → 3ANU 22:35
PROVIDERS: ADMIT Internal Medicine; ATTEND Family Medicine

== ENCOUNTER 2019-05-14 20:52 | Observation (INO) ==
[2019-05-14 21:58] LABS: BUN/Creatinine Ratio 18 (6-26); Blood Urea Nitrogen 21 mg/dL (8-23); Calcium 8.5 mg/dL (8.6-10.3); Carbon Dioxide 27 mEq/L (23-29); Chloride 100 mEq/L (98-107); Glucose 142 mg/dL (70-105); Osmolality,Calculated 283 (280-300); Potassium 3.8 mEq/L (3.5-5.1); Sodium 134 mEq/L (136-145); Troponin I < 0.03 ng/mL (< 0.04); eGFR For African Americans > 60 (> 60); eGFR For Non-African Americans > 60 (> 60)
[2019-05-14 22:19] LABS: Basophils # 0.1 K/mcL (0.0-0.2); Basophils % 0.8 %; Eosinophils # 0.3 K/mcL (0.0-0.6); Hematocrit 38.6 % (37.5-50.1); Hemoglobin 13.1 g/dL (12.9-16.9); Immature Granulocytes % 0.3 % (0-4); Lymphocytes # 1.5 K/mcL (0.6-4.6); Lymphocytes % 22.7 %; Mean Corpuscular HGB Conc 33.9 g/dL (31.6-35.5); Mean Corpuscular Hemoglobin 33.7 pg (28.0-33.3); Mean Corpuscular Volume 99.2 fL (83.0-100.0); Mean Platelet Volume 10.4 fL (9.4-12.4); Monocytes # 0.8 K/mcL (0.0-1.3); Monocytes % 12.5 %; Neutrophils # 3.8 K/mcL (1.6-8.9); Platelet Count 215 K/mcL (140-400); Red Blood Count 3.89 M/mcL (4.19-5.50); Red Cell Distribution Width 13.6 % (11.5-14.5); Segmented Neutrophils % 58.7 %; White Blood Count 6.4 K/mcL (4.3-11.1)
[2019-05-14] MEDS ORDERED: Ipratropium/Albuterol Neb 3 ML IH ONE (22:57)
[2019-05-15] MEDS ORDERED: Naloxone 0.4 MG/ML INJ IVP PRN (00:36)
[2019-05-15] MEDS ORDERED: Ipratropium/Albuterol Neb 3 ML IH PRN (00:46)
[2019-05-15 05:26] LABS: Basophils % 0.6 %; Eosinophils # 0.3 K/mcL (0.0-0.6); Eosinophils % 5.4 %; Hemoglobin 13.3 g/dL (12.9-16.9); Immature Granulocytes % 0.2 % (0-4); Lymphocytes # 1.4 K/mcL (0.6-4.6); Lymphocytes % 26.3 %; Mean Corpuscular HGB Conc 33.3 g/dL (31.6-35.5); Mean Corpuscular Hemoglobin 32.4 pg (28.0-33.3); Mean Corpuscular Volume 97.6 fL (83.0-100.0); Mean Platelet Volume 10.4 fL (9.4-12.4); Monocytes # 0.8 K/mcL (0.0-1.3); Monocytes % 14.6 %; Neutrophils # 2.7 K/mcL (1.6-8.9); Platelet Count 210 K/mcL (140-400); Red Cell Distribution Width 13.7 % (11.5-14.5); Segmented Neutrophils % 52.9 %; White Blood Count 5.1 K/mcL (4.3-11.1)
[2019-05-15 05:33] LABS: INR 2.2; Prothrombin Time 24.6 Seconds (9.4-12.1)
[2019-05-15] MEDS ORDERED: Acetaminophen 325 MG TABLET PO ONE (05:34)
[2019-05-15 05:54] LABS: BUN/Creatinine Ratio 18 (6-26); Blood Urea Nitrogen 20 mg/dL (8-23); Calcium 8.6 mg/dL (8.6-10.3); Carbon Dioxide 27 mEq/L (23-29); Chloride 101 mEq/L (98-107); Glucose 81 mg/dL (70-105); Osmolality,Calculated 286 (280-300); Sodium 137 mEq/L (136-145); eGFR For African Americans > 60 (> 60); eGFR For Non-African Americans > 60 (> 60)
[2019-05-15] MEDS ORDERED: carvediloL 6.25 MG TABLET PO SCH (08:00)
[2019-05-15] MEDS ORDERED: Aspirin Enteric Coated 81 MG Tablet PO SCH (09:00)
[2019-05-15] MEDS ORDERED: Furosemide 40 MG TABLET PO SCH (09:00)
[2019-05-15 11:06] VITALS: BP 133/76
[2019-05-15] MEDS ORDERED: Furosemide 20 MG TABLET PO SCH (18:00)
[2019-05-15] MEDS ORDERED: Warfarin perPT PO PRN (18:00)
[2019-05-15] MEDS ORDERED: *HR* Warfarin 7.5 MG TABLET PO ONE (18:00)
== END 2019-05-15 14:02 | disposition home or self-care (01) ==
LOC: 3BNU 20:52 → EMEROOARM 20:52 → SUATTDRO 23:38 → 3BNU 05-15 00:20
PROVIDERS: ADMIT Student in an Organized Health Care Education/Training Program; ATTEND Internal Medicine

== ENCOUNTER 2019-10-14 20:29 | Inpatient (IN) ==
[2019-10-14] MEDS ORDERED: Ipratropium/Albuterol Neb 3 ML IH ONE (20:45)
[2019-10-14] MEDS ORDERED: methylPREDNISolone 125 MG/2 ML VIAL IVP ONE (20:45)
[2019-10-14] MEDS ORDERED: *HR* LORazepam 2 MG/ML VIAL IVP ONE (20:54)
[2019-10-14 21:11] LABS: VBG HCO3 32 mEq/L (21-27); VBG PCO2 62 mmHg (41-51); VBG PH 7.33 pH Units (7.32-7.42); VBG PO2 46 mmHg (25-50)
[2019-10-14 21:13] LABS: Basophils # 0.1 K/mcL (0.0-0.2); Basophils % 0.7 %; Eosinophils # 0.5 K/mcL (0.0-0.6); Eosinophils % 6.7 %; Hematocrit 45.7 % (37.5-50.1); Immature Granulocytes % 0.4 % (0-4); Lymphocytes # 1.6 K/mcL (0.6-4.6); Lymphocytes % 22.8 %; Mean Corpuscular HGB Conc 32.8 g/dL (31.6-35.5); Mean Corpuscular Hemoglobin 31.6 pg (28.0-33.3); Mean Corpuscular Volume 96.2 fL (83.0-100.0); Mean Platelet Volume 9.7 fL (9.4-12.4); Monocytes # 0.8 K/mcL (0.0-1.3); Neutrophils # 3.9 K/mcL (1.6-8.9); Platelet Count 274 K/mcL (140-400); Red Blood Count 4.75 M/mcL (4.19-5.50); Red Cell Distribution Width 14.1 % (11.5-14.5); Segmented Neutrophils % 57.4 %; White Blood Count 6.9 K/mcL (4.3-11.1)
[2019-10-14 21:17] LABS: INR 2.2; Prothrombin Time 25.1 Seconds (9.4-12.1)
[2019-10-14 21:19] LABS: Activated Partial Thrombo Time 50.5 Seconds (26.0-36.0)
[2019-10-14 21:30] LABS: Alanine Aminotransferase 49 Units/L (7-52); Albumin 4.3 g/dL (3.5-5.7); Albumin/Globulin Ratio 1.3 (1.1-2.2); Alkaline Phosphatase 49 Units/L (34-104); Aspartate Amino Transferase 59 Units/L (13-39); BUN/Creatinine Ratio 17 (6-26); Bilirubin,Direct 0.2 mg/dL (0.0-0.2); Bilirubin,Indirect 0.8 mg/dL (0.0-1.0); Blood Urea Nitrogen 20 mg/dL (8-23); Calcium 9.1 mg/dL (8.6-10.3); Carbon Dioxide 30 mEq/L (23-29); Chloride 99 mEq/L (98-107); Globulin 3.3 g/dL (2.4-3.5); Glucose 112 mg/dL (70-105); Osmolality,Calculated 287 (280-300); Sodium 137 mEq/L (136-145); Total Protein 7.6 g/dL (6.4-8.9); Troponin I < 0.03 ng/mL (< 0.04); eGFR For African Americans > 60 (> 60); eGFR For Non-African Americans > 60 (> 60)
[2019-10-14] MEDS ORDERED: Azithromycin 500 MG in 0.9 % Sodium Chloride 250 ML IVPB ONE (21:55)
[2019-10-14] MEDS ORDERED: cefTRIAXone 1,000 MG in Water for inj. (sterile) 10 ML IVP ONE (21:55)
[2019-10-15] MEDS ORDERED: Albuterol 2.5 MG/3 ML NEBULIZER IH PRN (00:50)
[2019-10-15] MEDS ORDERED: Naloxone 0.4 MG/ML INJ IVP PRN (00:51)
[2019-10-15] MEDS ORDERED: *HR* Promethazine 25 MG/ML VIAL IVP PRN (00:51)
[2019-10-15 03:49] LABS: Basophils % 0.4 %; Eosinophils % 0.3 %; Hematocrit 46.3 % (37.5-50.1); Hemoglobin 15.1 g/dL (12.9-16.9); Immature Granulocytes % 0.6 % (0-4); Lymphocytes # 1.2 K/mcL (0.6-4.6); Mean Corpuscular HGB Conc 32.6 g/dL (31.6-35.5); Mean Corpuscular Volume 98.1 fL (83.0-100.0); Mean Platelet Volume 9.7 fL (9.4-12.4); Monocytes # 0.1 K/mcL (0.0-1.3); Monocytes % 1.9 %; Neutrophils # 5.5 K/mcL (1.6-8.9); Platelet Count 244 K/mcL (140-400); Red Blood Count 4.72 M/mcL (4.19-5.50); Red Cell Distribution Width 14.2 % (11.5-14.5); Segmented Neutrophils % 79.8 %; White Blood Count 6.9 K/mcL (4.3-11.1)
[2019-10-15 03:53] LABS: INR 2.3; Prothrombin Time 25.8 Seconds (9.4-12.1)
[2019-10-15 04:08] LABS: BUN/Creatinine Ratio 20 (6-26); Blood Urea Nitrogen 24 mg/dL (8-23); Calcium 8.9 mg/dL (8.6-10.3); Carbon Dioxide 27 mEq/L (23-29); Chloride 100 mEq/L (98-107); Glucose 160 mg/dL (70-105); Magnesium 2.1 mg/dL (1.6-2.6); Osmolality,Calculated 291 (280-300); Phosphorous 3.2 mg/dL (2.7-4.5); Potassium 4.5 mEq/L (3.5-5.1); Sodium 137 mEq/L (136-145); eGFR For African Americans > 60 (> 60); eGFR For Non-African Americans > 60 (> 60)
[2019-10-15] MEDS ORDERED: MethylPREDNISolone 40 MG/ML VIAL IVP SCH (08:00)
[2019-10-15] MEDS ORDERED: cefTRIAXone 1,000 MG in 0.9 % Sodium Chloride Mini Bag 100 ML IVPB SCH (09:00)
[2019-10-15] MEDS: Gabapentin 300 MG CAPSULE PO SCH ×2 (09:17→20:09)
[2019-10-15] MEDS: carvediloL 6.25 MG TABLET PO SCH ×2 (09:17→16:54)
[2019-10-15] MEDS ORDERED: Anticoagulation Consult 1 Each MC ONE (11:27)
[2019-10-15] MEDS: Acetaminophen 325 MG TABLET PO PRN ×2 (14:10→20:10)
[2019-10-15] MEDS: Furosemide 20 MG TABLET PO SCH (16:54)
[2019-10-15] MEDS ORDERED: *HR* Warfarin 10 MG TABLET PO SCH (18:00)
[2019-10-15] MEDS ORDERED: *HR* Warfarin 7.5 MG TABLET PO ONE (18:00)
[2019-10-15] MEDS ORDERED: Warfarin perPT PO PRN (18:00)
[2019-10-15] MEDS: cefTRIAXone 1,000 MG in Water for inj. (sterile) 10 ML IVP SCH (20:09)
[2019-10-15] MEDS: Azithromycin 500 MG in 0.9 % Sodium Chloride 250 ML IVPB SCH (20:23)
[2019-10-15] MEDS ORDERED: Melatonin 3 MG TABLET PO PRN (23:32)
[2019-10-16 02:20] LABS: Mean Corpuscular HGB Conc 33.3 g/dL (31.6-35.5); Mean Corpuscular Hemoglobin 32.6 pg (28.0-33.3); Mean Corpuscular Volume 97.7 fL (83.0-100.0); Mean Platelet Volume 9.7 fL (9.4-12.4); Platelet Count 209 K/mcL (140-400); Red Blood Count 3.99 M/mcL (4.19-5.50); Red Cell Distribution Width 14.2 % (11.5-14.5)
[2019-10-16 02:22] LABS: White Blood Count 15.4 K/mcL (4.3-11.1)
[2019-10-16 02:24] LABS: INR 2.6
[2019-10-16 02:41] LABS: BUN/Creatinine Ratio 26 (6-26); Blood Urea Nitrogen 36 mg/dL (8-23); Calcium 8.6 mg/dL (8.6-10.3); Carbon Dioxide 25 mEq/L (23-29); Chloride 98 mEq/L (98-107); Glucose 130 mg/dL (70-105); Osmolality,Calculated 284 (280-300); Potassium 4.3 mEq/L (3.5-5.1); Sodium 132 mEq/L (136-145); eGFR For African Americans > 60 (> 60); eGFR For Non-African Americans 51 (> 60)
[2019-10-16] MEDS: Acetaminophen 325 MG TABLET PO PRN (08:28)
[2019-10-16] MEDS: carvediloL 6.25 MG TABLET PO SCH ×2 (08:28→17:15)
[2019-10-16] MEDS: Gabapentin 300 MG CAPSULE PO SCH ×2 (08:28→21:42)
[2019-10-16] MEDS ORDERED: predniSONE 20 MG TABLET PO SCH (09:00)
[2019-10-16 12:02] LABS: Hematocrit 41.3 % (37.5-50.1); Hemoglobin 12.9 g/dL (12.9-16.9); Immature Granulocytes % 0.5 % (0-4); Lymphocytes % 8.3 %; Mean Corpuscular HGB Conc 31.2 g/dL (31.6-35.5); Mean Corpuscular Hemoglobin 31.5 pg (28.0-33.3); Mean Corpuscular Volume 100.7 fL (83.0-100.0); Mean Platelet Volume 9.8 fL (9.4-12.4); Monocytes # 0.9 K/mcL (0.0-1.3); Monocytes % 7.4 %; Neutrophils # 10.5 K/mcL (1.6-8.9); Platelet Count 215 K/mcL (140-400); Red Cell Distribution Width 14.3 % (11.5-14.5); Segmented Neutrophils % 83.8 %; White Blood Count 12.5 K/mcL (4.3-11.1)
[2019-10-16] MEDS: Ipratropium/Albuterol Neb 3 ML IH SCH ×2 (15:25→22:27)
[2019-10-16] MEDS: MethylPREDNISolone 40 MG/ML VIAL IVP SCH (17:15)
[2019-10-16] MEDS: Furosemide 20 MG TABLET PO SCH (17:15)
[2019-10-16] MEDS ORDERED: Warfarin perPT PO PRN (18:00)
[2019-10-16] MEDS ORDERED: *HR* Warfarin 3 MG TABLET PO ONE ×2 (18:00)
[2019-10-16] MEDS ORDERED: *HR* Warfarin 7.5 MG TABLET PO SCH (18:00)
[2019-10-16] MEDS: cefTRIAXone 1,000 MG in Water for inj. (sterile) 10 ML IVP SCH (21:43)
[2019-10-16] MEDS: Azithromycin 500 MG in 0.9 % Sodium Chloride 250 ML IVPB SCH (21:44)
[2019-10-16] MEDS ORDERED: Acetaminophen 325 MG TABLET PO ONE (22:31)
[2019-10-17] MEDS: MethylPREDNISolone 40 MG/ML VIAL IVP SCH ×2 (00:54→08:34)
[2019-10-17] MEDS: Ipratropium/Albuterol Neb 3 ML IH SCH ×4 (03:46→21:39)
[2019-10-17 07:10] LABS: INR 2.6; Prothrombin Time 29.7 Seconds (9.4-12.1)
[2019-10-17 07:12] LABS: BUN/Creatinine Ratio 28 (6-26); Blood Urea Nitrogen 31 mg/dL (8-23); Calcium 8.8 mg/dL (8.6-10.3); Carbon Dioxide 30 mEq/L (23-29); Chloride 101 mEq/L (98-107); Glucose 152 mg/dL (70-105); Osmolality,Calculated 292 (280-300); Potassium 4.7 mEq/L (3.5-5.1); Sodium 136 mEq/L (136-145); eGFR For African Americans > 60 (> 60); eGFR For Non-African Americans > 60 (> 60)
[2019-10-17 07:37] LABS: Hematocrit 41.9 % (37.5-50.1); Hemoglobin 13.4 g/dL (12.9-16.9); Mean Corpuscular Hemoglobin 32.3 pg (28.0-33.3); Red Blood Count 4.15 M/mcL (4.19-5.50); White Blood Count 11.9 K/mcL (4.3-11.1)
[2019-10-17 07:38] LABS: Platelet Count 201 K/mcL (140-400); Red Cell Distribution Width 14.2 % (11.5-14.5)
[2019-10-17 07:39] LABS: Basophils % 0.2 %; Lymphocytes # 0.8 K/mcL (0.6-4.6); Monocytes # 0.4 K/mcL (0.0-1.3); Monocytes % 3.3 %; Neutrophils # 10.5 K/mcL (1.6-8.9); Segmented Neutrophils % 87.9 %
[2019-10-17] MEDS: carvediloL 6.25 MG TABLET PO SCH ×2 (08:33→17:06)
[2019-10-17] MEDS: Gabapentin 300 MG CAPSULE PO SCH ×2 (08:34→21:23)
[2019-10-17] MEDS: Furosemide 20 MG TABLET PO SCH (17:06)
[2019-10-17] MEDS ORDERED: *HR* Warfarin 3 MG TABLET PO ONE (18:00)
[2019-10-17] MEDS ORDERED: Azithromycin 250 MG TABLET PO SCH (21:00)
[2019-10-17] MEDS: cefTRIAXone 1,000 MG in Water for inj. (sterile) 10 ML IVP SCH (21:23)
[2019-10-18 02:14] LABS: Basophils % 0.2 %; Hematocrit 40.7 % (37.5-50.1); Immature Granulocytes % 1.3 % (0-4); Lymphocytes # 1.2 K/mcL (0.6-4.6); Lymphocytes % 8.8 %; Mean Corpuscular HGB Conc 31.9 g/dL (31.6-35.5); Mean Corpuscular Hemoglobin 31.9 pg (28.0-33.3); Mean Corpuscular Volume 99.8 fL (83.0-100.0); Mean Platelet Volume 10.3 fL (9.4-12.4); Monocytes # 1.5 K/mcL (0.0-1.3); Monocytes % 10.8 %; Neutrophils # 10.9 K/mcL (1.6-8.9); Platelet Count 195 K/mcL (140-400); Red Blood Count 4.08 M/mcL (4.19-5.50); Red Cell Distribution Width 14.1 % (11.5-14.5); Segmented Neutrophils % 78.9 %; White Blood Count 13.8 K/mcL (4.3-11.1)
[2019-10-18 02:16] LABS: INR 2.4; Prothrombin Time 27.3 Seconds (9.4-12.1)
[2019-10-18 02:25] LABS: BUN/Creatinine Ratio 28 (6-26); Blood Urea Nitrogen 31 mg/dL (8-23); Calcium 8.5 mg/dL (8.6-10.3); Carbon Dioxide 28 mEq/L (23-29); Chloride 101 mEq/L (98-107); Glucose 230 mg/dL (70-105); Osmolality,Calculated 294 (280-300); Potassium 4.2 mEq/L (3.5-5.1); Sodium 135 mEq/L (136-145); eGFR For African Americans > 60 (> 60); eGFR For Non-African Americans > 60 (> 60)
[2019-10-18] MEDS: Ipratropium/Albuterol Neb 3 ML IH SCH ×2 (03:33→09:49)
[2019-10-18 07:12] VITALS: BP 153/91
[2019-10-18] MEDS: carvediloL 6.25 MG TABLET PO SCH (08:33)
[2019-10-18] MEDS: Gabapentin 300 MG CAPSULE PO SCH (08:33)
[2019-10-18] MEDS ORDERED: predniSONE 20 MG TABLET PO SCH (09:00)
== END 2019-10-18 11:28 | disposition home or self-care (01) | DRG 190 ==
LOC: 2ANU 20:29 → EMEROOARM 20:29 → SUATTDRO 22:18 → 2ANU 23:16
PROVIDERS: ADMIT Student in an Organized Health Care Education/Training Program; ATTEND Student in an Organized Health Care Education/Training Program

== ENCOUNTER 2020-03-31 13:30 | Inpatient (IN) ==
[2020-03-31 13:57] LABS: Basophils % 0.2 %; Eosinophils % 0.4 %; Hematocrit 34.3 % (37.5-50.1); Hemoglobin 11.2 g/dL (12.9-16.9); Immature Granulocytes % 0.9 % (0-4); Lymphocytes # 1.1 K/mcL (0.6-4.6); Lymphocytes % 13.2 %; Mean Corpuscular HGB Conc 32.7 g/dL (31.6-35.5); Mean Corpuscular Hemoglobin 31.6 pg (28.0-33.3); Mean Corpuscular Volume 96.9 fL (83.0-100.0); Mean Platelet Volume 9.5 fL (9.4-12.4); Monocytes # 0.9 K/mcL (0.0-1.3); Monocytes % 10.6 %; Platelet Count 222 K/mcL (140-400); Red Blood Count 3.54 M/mcL (4.19-5.50); Red Cell Distribution Width 13.9 % (11.5-14.5); Segmented Neutrophils % 74.7 %
[2020-03-31] MEDS ORDERED: 0.9 % Sodium Chloride 1,000 ML IVC ONE (14:03)
[2020-03-31] MEDS ORDERED: Ipratropium/Albuterol Neb 3 ML IH ONE (14:10)
[2020-03-31 14:19] LABS: BUN/Creatinine Ratio 13 (6-26); Blood Urea Nitrogen 17 mg/dL (8-23); Calcium 8.4 mg/dL (8.6-10.3); Carbon Dioxide 30 mEq/L (23-29); Chloride 100 mEq/L (98-107); Glucose 88 mg/dL (70-105); Osmolality,Calculated 285 (280-300); Potassium 4.2 mEq/L (3.5-5.1); Sodium 137 mEq/L (136-145); eGFR For African Americans > 60 (> 60); eGFR For Non-African Americans 57 (> 60)
[2020-03-31 14:20] LABS: Troponin I < 0.03 ng/mL (< 0.04)
[2020-03-31 14:23] LABS: VBG HCO3 28 mEq/L (21-27); VBG PCO2 50 mmHg (41-51); VBG PH 7.36 pH Units (7.32-7.42); VBG PO2 46 mmHg (25-50)
[2020-03-31 14:36] LABS: INR 2.2; Prothrombin Time 24.4 Seconds (9.4-12.1)
[2020-03-31] MEDS ORDERED: cefTRIAXone 1,000 MG in Water for inj. (sterile) 10 ML IVP ONE (15:00)
[2020-03-31] MEDS ORDERED: Azithromycin 500 MG in 0.9 % Sodium Chloride 250 ML IVPB ONE (15:01)
[2020-03-31 15:44] LABS: Adenovirus Not Detected (Not Detect); Bordetella Pertussis Not Detected (Not Detect); Chlamydophila pneumoniae Not Detected (Not Detect); Coronavirus 229E Not Detected (Not Detect); Coronavirus HKU1 Not Detected (Not Detect); Coronavirus NL63 Not Detected (Not Detect); Coronavirus OC43 Not Detected (Not Detect); Human Metapneumovirus Not Detected (Not Detect); Human Rhinovirus/Enterovirus Not Detected (Not Detect); Influenza A Subtype 2009 H1 Not Detected (Not Detect); Influenza B Not Detected (Not Detect); Mycoplasma pneumoniae Not Detected (Not Detect); Parainfluenza Virus 1 Not Detected (Not Detect); Parainfluenza Virus 2 Not Detected (Not Detect); Parainfluenza Virus 3 Not Detected (Not Detect); Parainfluenza Virus 4 Not Detected (Not Detect); Respiratory Syncytial Virus Not Detected (Not Detect)
[2020-03-31 15:46] LABS: SARS-CoV-2 DETECTED (Not Detect)
[2020-03-31] MEDS ORDERED: Dexamethasone 4 MG/ML VIAL IVP ONE (15:47)
[2020-03-31] MEDS ORDERED: Ondansetron 4 MG/2 ML VIAL IVP PRN (17:03)
[2020-03-31 17:17] LABS: C-Reactive Protein 142 mg/L (Less than 10)
[2020-03-31 17:35] LABS: Ferritin 407 ng/mL (20-250)
[2020-03-31] MEDS ORDERED: *HR* Metoprolol 5 MG/5 ML VIAL IVP ONE (18:55)
[2020-03-31] MEDS ORDERED: *HR* Metoprolol 5 MG/5 ML VIAL IVP PRN (18:56)
[2020-03-31] MEDS: carvediloL 25 MG TABLET PO SCH (19:35)
[2020-03-31] MEDS: clonazePAM 0.5 MG TABLET PO PRN (19:48)
[2020-03-31] MEDS: Acetaminophen 325 MG TABLET PO PRN (20:19)
[2020-04-01 02:36] LABS: Hematocrit 33.9 % (37.5-50.1); Hemoglobin 10.8 g/dL (12.9-16.9); Mean Corpuscular HGB Conc 31.9 g/dL (31.6-35.5); Mean Corpuscular Hemoglobin 31.2 pg (28.0-33.3); Mean Platelet Volume 9.7 fL (9.4-12.4); Platelet Count 241 K/mcL (140-400); Red Blood Count 3.46 M/mcL (4.19-5.50); White Blood Count 8.9 K/mcL (4.3-11.1)
[2020-04-01 02:51] LABS: Prothrombin Time 23.1 Seconds (9.4-12.1)
[2020-04-01 02:58] LABS: Albumin 3.5 g/dL (3.5-5.7); Albumin/Globulin Ratio 1.1 (1.1-2.2); Bilirubin,Direct 0.1 mg/dL (0.0-0.2); Bilirubin,Indirect 0.6 mg/dL (0.0-1.0); Bilirubin,Total 0.7 mg/dL (0.3-1.0); Globulin 3.3 g/dL (2.4-3.5); Phosphorous 2.9 mg/dL (2.7-4.5); Total Protein 6.8 g/dL (6.4-8.9)
[2020-04-01 02:59] LABS: BUN/Creatinine Ratio 17 (6-26); Blood Urea Nitrogen 19 mg/dL (8-23); Calcium 8.1 mg/dL (8.6-10.3); Carbon Dioxide 24 mEq/L (23-29); Chloride 102 mEq/L (98-107); Glucose 147 mg/dL (70-105); Osmolality,Calculated 285 (280-300); Potassium 4.3 mEq/L (3.5-5.1); Sodium 135 mEq/L (136-145); eGFR For African Americans > 60 (> 60); eGFR For Non-African Americans > 60 (> 60)
[2020-04-01] MEDS ORDERED: *HR* Enoxaparin 40 MG/0.4 ML SYRINGE SQ SCH (06:00)
[2020-04-01] MEDS ORDERED: Furosemide 40 MG/4 ML VIAL IVP SCH (09:00)
[2020-04-01] MEDS: Furosemide 40 MG/4 ML VIAL IVP SCH ×2 (09:32→21:03)
[2020-04-01] MEDS: clonazePAM 0.5 MG TABLET PO PRN ×2 (09:33→21:03)
[2020-04-01] MEDS: cefTRIAXone 1,000 MG in Water for inj. (sterile) 10 ML IVP SCH (09:33)
[2020-04-01] MEDS: Dexamethasone 4 MG/ML VIAL IVP SCH (09:33)
[2020-04-01] MEDS: Spironolactone 25 MG TABLET PO SCH (09:34)
[2020-04-01] MEDS: Azithromycin 250 MG TABLET PO SCH (09:34)
[2020-04-01] MEDS: Acetaminophen 325 MG TABLET PO PRN ×2 (09:34→21:03)
[2020-04-01] MEDS: carvediloL 25 MG TABLET PO SCH ×2 (09:34→17:24)
[2020-04-01] MEDS ORDERED: Dextrose Gel 15 GM/37.5 ML TUBE PO PRN ×2 (10:31)
[2020-04-01] MEDS ORDERED: *HR* Dextrose 50 % in Water (Vial) 50 ML VIAL IVP PRN (10:31)
[2020-04-01] MEDS ORDERED: D5% in Water 1,000 ML IVC PRN (10:31)
[2020-04-01] MEDS: Insulin LISPRO 300 UNITS/3 ML VIAL SUBQ SCH ×3 (12:38→21:06)
[2020-04-01] MEDS: Leptospermum Honey Gel 44 ML TUBE TP SCH (17:25)
[2020-04-01] MEDS ORDERED: Warfarin perPT PO PRN (18:30)
[2020-04-01] MEDS ORDERED: *HR* Warfarin 3 MG TABLET PO ONE (18:41)
[2020-04-02 05:26] LABS: INR 1.7; Prothrombin Time 19.5 Seconds (9.4-12.1)
[2020-04-02 05:29] LABS: % Iron Saturation 20 % (20-55); BUN/Creatinine Ratio 23 (6-26); Blood Urea Nitrogen 26 mg/dL (8-23); Calcium 8.6 mg/dL (8.6-10.3); Carbon Dioxide 27 mEq/L (23-29); Chloride 100 mEq/L (98-107); Glucose 141 mg/dL (70-105); Iron 60 mcg/dL (65-175); Magnesium 2.3 mg/dL (1.6-2.6); Osmolality,Calculated 285 (280-300); Potassium 4.2 mEq/L (3.5-5.1); Sodium 134 mEq/L (136-145); Transferrin 211 mg/dL (203-362); eGFR For African Americans > 60 (> 60); eGFR For Non-African Americans > 60 (> 60)
[2020-04-02 05:46] LABS: Ferritin 441 ng/mL (20-250)
[2020-04-02 05:51] LABS: Folate 10.2 ng/mL (3.0-16.0)
[2020-04-02] MEDS: carvediloL 25 MG TABLET PO SCH ×2 (08:06→16:50)
[2020-04-02] MEDS: Azithromycin 250 MG TABLET PO SCH (08:07)
[2020-04-02] MEDS: Spironolactone 25 MG TABLET PO SCH (08:07)
[2020-04-02] MEDS: Furosemide 40 MG/4 ML VIAL IVP SCH ×2 (08:07→20:00)
[2020-04-02] MEDS: cefTRIAXone 1,000 MG in Water for inj. (sterile) 10 ML IVP SCH (08:08)
[2020-04-02] MEDS: Dexamethasone 4 MG/ML VIAL IVP SCH (08:08)
[2020-04-02] MEDS: Insulin LISPRO 300 UNITS/3 ML VIAL SUBQ SCH ×4 (08:09→20:00)
[2020-04-02 09:12] LABS: Estimated Average Glucose 189 mg/dl; Hemoglobin A1C 8.2 %
[2020-04-02 10:07] LABS: Basophils % 0.2 %; Eosinophils % 0.1 %; Hematocrit 35.5 % (37.5-50.1); Hemoglobin 11.6 g/dL (12.9-16.9); Immature Granulocytes % 1.5 % (0-4); Lymphocytes # 0.8 K/mcL (0.6-4.6); Lymphocytes % 5.3 %; Mean Corpuscular HGB Conc 32.7 g/dL (31.6-35.5); Mean Corpuscular Volume 94.9 fL (83.0-100.0); Mean Platelet Volume 10.4 fL (9.4-12.4); Monocytes # 0.4 K/mcL (0.0-1.3); Nucleated Red Blood Cells 0.3 /100 WBC (0); Platelet Count 259 K/mcL (140-400); Red Blood Count 3.74 M/mcL (4.19-5.50); Red Cell Distribution Width 13.5 % (11.5-14.5); Segmented Neutrophils % 89.9 %
[2020-04-02 10:12] LABS: White Blood Count 14.4 K/mcL (4.3-11.1)
[2020-04-02] MEDS: Leptospermum Honey Gel 44 ML TUBE TP SCH (11:26)
[2020-04-02] MEDS: Acetaminophen 325 MG TABLET PO PRN (14:44)
[2020-04-02] MEDS: Gabapentin 300 MG CAPSULE PO SCH (14:45)
[2020-04-02] MEDS ORDERED: *HR* Warfarin 3 MG TABLET PO ONE (18:00)
[2020-04-02] MEDS ORDERED: Gabapentin 300 MG CAPSULE PO SCH (21:00)
[2020-04-03 02:13] LABS: Basophils % 0.2 %; Hemoglobin 11.2 g/dL (12.9-16.9); Immature Granulocytes % 2.4 % (0-4); Lymphocytes % 6.3 %; Mean Corpuscular Hemoglobin 31.3 pg (28.0-33.3); Mean Corpuscular Volume 97.8 fL (83.0-100.0); Mean Platelet Volume 9.9 fL (9.4-12.4); Monocytes # 1.2 K/mcL (0.0-1.3); Monocytes % 7.3 %; Neutrophils # 13.9 K/mcL (1.6-8.9); Nucleated Red Blood Cells 0.1 /100 WBC (0); Platelet Count 356 K/mcL (140-400); Red Blood Count 3.58 M/mcL (4.19-5.50); Red Cell Distribution Width 13.6 % (11.5-14.5); Segmented Neutrophils % 83.8 %; White Blood Count 16.6 K/mcL (4.3-11.1)
[2020-04-03 02:18] LABS: INR 1.7; Prothrombin Time 19.7 Seconds (9.4-12.1)
[2020-04-03 02:33] LABS: BUN/Creatinine Ratio 26 (6-26); Blood Urea Nitrogen 32 mg/dL (8-23); Calcium 8.7 mg/dL (8.6-10.3); Carbon Dioxide 28 mEq/L (23-29); Chloride 100 mEq/L (98-107); Glucose 136 mg/dL (70-105); Magnesium 2.4 mg/dL (1.6-2.6); Osmolality,Calculated 291 (280-300); Potassium 4.4 mEq/L (3.5-5.1); Sodium 136 mEq/L (136-145); eGFR For African Americans > 60 (> 60); eGFR For Non-African Americans 59 (> 60)
[2020-04-03 08:07] VITALS: BP 144/81
[2020-04-03] MEDS ORDERED: Finasteride 5 MG TABLET PO SCH (09:00)
[2020-04-03] MEDS: Dexamethasone 4 MG/ML VIAL IVP SCH (09:49)
[2020-04-03] MEDS: Furosemide 40 MG/4 ML VIAL IVP SCH (09:49)
[2020-04-03] MEDS: cefTRIAXone 1,000 MG in Water for inj. (sterile) 10 ML IVP SCH (09:50)
[2020-04-03] MEDS: carvediloL 25 MG TABLET PO SCH (09:51)
[2020-04-03] MEDS: Leptospermum Honey Gel 44 ML TUBE TP SCH (09:51)
[2020-04-03] MEDS: Azithromycin 250 MG TABLET PO SCH (09:51)
[2020-04-03] MEDS: Gabapentin 300 MG CAPSULE PO SCH ×2 (09:51→13:15)
[2020-04-03] MEDS: Spironolactone 25 MG TABLET PO SCH (09:51)
[2020-04-03] MEDS: Insulin LISPRO 300 UNITS/3 ML VIAL SUBQ SCH ×2 (09:52→13:15)
[2020-04-03] MEDS ORDERED: *HR* Warfarin 7.5 MG TABLET PO ONE (18:00)
== END 2020-04-03 15:54 | disposition home or self-care (01) | DRG 871 ==
LOC: EMEROOARM 13:30 → CDU 13:30 → SUATTDRO 17:41 → 3BNU 04-02 18:39
PROVIDERS: ADMIT Student in an Organized Health Care Education/Training Program; ATTEND Pharmacist

== ENCOUNTER 2020-04-16 19:56 | Inpatient (IN) ==
[2020-04-16] MEDS ORDERED: Aspirin 81 MG TAB.CHEW PO ONE (20:21)
[2020-04-16] MEDS ORDERED: 0.9 % Sodium Chloride 1,000 ML IVC ONE (20:22)
[2020-04-16] MEDS ORDERED: Nitroglycerin 0.4 MG TAB.SUBL SL PRN (20:30)
[2020-04-16 20:40] LABS: Eosinophils # 0.2 K/mcL (0.0-0.6); Eosinophils % 2.1 %; Hematocrit 38.7 % (37.5-50.1); Hemoglobin 12.3 g/dL (12.9-16.9); Immature Granulocytes % 0.5 % (0-4); Lymphocytes # 1.2 K/mcL (0.6-4.6); Mean Corpuscular HGB Conc 31.8 g/dL (31.6-35.5); Mean Corpuscular Hemoglobin 31.9 pg (28.0-33.3); Mean Corpuscular Volume 100.5 fL (83.0-100.0); Mean Platelet Volume 9.7 fL (9.4-12.4); Monocytes # 1.5 K/mcL (0.0-1.3); Monocytes % 13.1 %; Neutrophils # 8.6 K/mcL (1.6-8.9); Platelet Count 245 K/mcL (140-400); Red Blood Count 3.85 M/mcL (4.19-5.50); Segmented Neutrophils % 74.3 %; White Blood Count 11.5 K/mcL (4.3-11.1)
[2020-04-16] MEDS ORDERED: Ipratropium/Albuterol Neb 3 ML IH ONE (20:40)
[2020-04-16] MEDS ORDERED: methylPREDNISolone 125 MG/2 ML VIAL IVP ONE (20:40)
[2020-04-16] MEDS ORDERED: Azithromycin 500 MG in 0.9 % Sodium Chloride 250 ML IVPB ONE (20:41)
[2020-04-16] MEDS ORDERED: cefTRIAXone 1,000 MG in Water for inj. (sterile) 10 ML IVP ONE (20:41)
[2020-04-16 20:45] LABS: INR 1.7; Prothrombin Time 19.5 Seconds (9.4-12.1)
[2020-04-16 20:47] LABS: Activated Partial Thrombo Time 33.4 Seconds (26.0-36.0)
[2020-04-16 21:02] LABS: BUN/Creatinine Ratio 18 (6-26); Blood Urea Nitrogen 20 mg/dL (8-23); Calcium 9.1 mg/dL (8.6-10.3); Carbon Dioxide 29 mEq/L (23-29); Chloride 101 mEq/L (98-107); Glucose 175 mg/dL (70-105); Osmolality,Calculated 291 (280-300); Sodium 137 mEq/L (136-145); Troponin I 0.03 ng/mL (< 0.04); eGFR For African Americans > 60 (> 60); eGFR For Non-African Americans > 60 (> 60)
[2020-04-16] MEDS ORDERED: Isovue-370 500 ML BOTTLE IVP ONE (22:53)
[2020-04-16] MEDS ORDERED: Ondansetron ODT 4 MG TAB.RAPDIS SL PRN (23:03)
[2020-04-16] MEDS ORDERED: Naloxone 0.4 MG/ML INJ IVP PRN (23:03)
[2020-04-16 23:11] LABS: Bilirubin,Urine Negative (Negative); Blood,Urine Negative (Negative); Clarity,Urine Clear (Clear); Color,Urine Yellow (Yellow); Glucose,Urine (UA) Normal (Normal); Ketones,Urine Negative (Negative); Leukocyte Esterase,Urine Negative (Negative); Mucus,Urine Few per lpf (None-Few); Nitrite,Urine Negative (Negative); Protein,Urine 70 mg/dL (Neg-Trace); RBC,Urine 0-3 per hpf (0-3); Specific Gravity,Urine 1.028 (1.010-1.025); Squamous Epithelial Cell,Urine Few per hpf (None-Few); Urobilinogen,Urine Normal (Normal)
[2020-04-16 23:14] LABS: Adenovirus Not Detected (Not Detect); Bordetella Pertussis Not Detected (Not Detect); Chlamydophila pneumoniae Not Detected (Not Detect); Coronavirus 229E Not Detected (Not Detect); Coronavirus HKU1 Not Detected (Not Detect); Coronavirus NL63 Not Detected (Not Detect); Coronavirus OC43 Not Detected (Not Detect); Human Metapneumovirus Not Detected (Not Detect); Human Rhinovirus/Enterovirus Not Detected (Not Detect); Influenza A Subtype 2009 H1 Not Detected (Not Detect); Influenza B Not Detected (Not Detect); Mycoplasma pneumoniae Not Detected (Not Detect); Parainfluenza Virus 1 Not Detected (Not Detect); Parainfluenza Virus 2 Not Detected (Not Detect); Parainfluenza Virus 3 Not Detected (Not Detect); Parainfluenza Virus 4 Not Detected (Not Detect); Respiratory Syncytial Virus Not Detected (Not Detect); SARS-CoV-2 Not Detected (Not Detect)
[2020-04-17] MEDS: Ipratropium/Albuterol Neb 3 ML IH SCH ×5 (04:03→19:36)
[2020-04-17 04:16] LABS: Hematocrit 43.3 % (37.5-50.1); Hemoglobin 13.5 g/dL (12.9-16.9); Mean Corpuscular HGB Conc 31.2 g/dL (31.6-35.5); Mean Corpuscular Hemoglobin 31.8 pg (28.0-33.3); Mean Corpuscular Volume 102.1 fL (83.0-100.0); Mean Platelet Volume 9.5 fL (9.4-12.4); Platelet Count 235 K/mcL (140-400); Red Blood Count 4.24 M/mcL (4.19-5.50); Red Cell Distribution Width 15.1 % (11.5-14.5); White Blood Count 8.3 K/mcL (4.3-11.1)
[2020-04-17 04:28] LABS: Alanine Aminotransferase 32 Units/L (7-52); Albumin 3.5 g/dL (3.5-5.7); Albumin/Globulin Ratio 0.9 (1.1-2.2); Alkaline Phosphatase 54 Units/L (34-104); Aspartate Amino Transferase 28 Units/L (13-39); BUN/Creatinine Ratio 20 (6-26); Bilirubin,Total 0.9 mg/dL (0.3-1.0); Blood Urea Nitrogen 22 mg/dL (8-23); Carbon Dioxide 29 mEq/L (23-29); Chloride 102 mEq/L (98-107); Globulin 3.8 g/dL (2.4-3.5); Glucose 190 mg/dL (70-105); Osmolality,Calculated 294 (280-300); Potassium 4.2 mEq/L (3.5-5.1); Sodium 138 mEq/L (136-145); Total Protein 7.3 g/dL (6.4-8.9); eGFR For African Americans > 60 (> 60); eGFR For Non-African Americans > 60 (> 60)
[2020-04-17 04:34] LABS: ABG Base Excess 2 mEq/L (-2 to 3); ABG HCO3 29 mEq/L (21-27); ABG Oxygen Saturation 95 % (95-98); ABG PCO2 53 mmHg (35-45); ABG PH 7.34 pH Units (7.32-7.45); ABG PO2 82 mmHg (85-104); ABG TCO2 30 mEq/L (20-26)
[2020-04-17] MEDS ORDERED: MethylPREDNISolone 40 MG/ML VIAL IVP SCH (06:00)
[2020-04-17] MEDS ORDERED: *HR* Dextrose 50 % in Water (Vial) 50 ML VIAL IVP PRN (07:03)
[2020-04-17] MEDS ORDERED: Dextrose Gel 15 GM/37.5 ML TUBE PO PRN ×2 (07:03)
[2020-04-17] MEDS ORDERED: D5% in Water 1,000 ML IVC PRN (07:03)
[2020-04-17] MEDS: Insulin LISPRO 300 UNITS/3 ML VIAL SUBQ SCH ×4 (08:38→20:15)
[2020-04-17 08:53] LABS: INR 1.6; Prothrombin Time 18.2 Seconds (9.4-12.1)
[2020-04-17] MEDS: Furosemide 20 MG TABLET PO SCH ×2 (12:06→20:15)
[2020-04-17] MEDS: MethylPREDNISolone 40 MG/ML VIAL IVP SCH ×2 (12:06→22:37)
[2020-04-17] MEDS: Finasteride 5 MG TABLET PO SCH (12:06)
[2020-04-17] MEDS: Azithromycin 500 MG in 0.9 % Sodium Chloride 250 ML IVPB SCH (17:18)
[2020-04-17] MEDS ORDERED: *HR* Warfarin 7.5 MG TABLET PO ONE (18:00)
[2020-04-17] MEDS ORDERED: Warfarin perPT PO PRN (18:00)
[2020-04-17] MEDS: carvediloL 6.25 MG TABLET PO SCH (20:15)
[2020-04-17] MEDS: Gabapentin 300 MG CAPSULE PO SCH (20:15)
[2020-04-18] MEDS: Ipratropium/Albuterol Neb 3 ML IH SCH ×7 (00:01→23:13)
[2020-04-18 05:04] LABS: Basophils % 0.1 %; Hematocrit 34.9 % (37.5-50.1); Lymphocytes # 0.6 K/mcL (0.6-4.6); Lymphocytes % 4.3 %; Mean Corpuscular HGB Conc 31.5 g/dL (31.6-35.5); Mean Corpuscular Hemoglobin 31.4 pg (28.0-33.3); Mean Corpuscular Volume 99.7 fL (83.0-100.0); Mean Platelet Volume 9.8 fL (9.4-12.4); Monocytes # 0.4 K/mcL (0.0-1.3); Monocytes % 3.2 %; Neutrophils # 12.4 K/mcL (1.6-8.9); Platelet Count 229 K/mcL (140-400); Red Cell Distribution Width 14.6 % (11.5-14.5); Segmented Neutrophils % 91.4 %
[2020-04-18 05:08] LABS: White Blood Count 13.6 K/mcL (4.3-11.1)
[2020-04-18 05:23] LABS: BUN/Creatinine Ratio 28 (6-26); Blood Urea Nitrogen 27 mg/dL (8-23); Calcium 8.6 mg/dL (8.6-10.3); Carbon Dioxide 25 mEq/L (23-29); Chloride 102 mEq/L (98-107); Glucose 226 mg/dL (70-105); Osmolality,Calculated 292 (280-300); Sodium 135 mEq/L (136-145); eGFR For African Americans > 60 (> 60); eGFR For Non-African Americans > 60 (> 60)
[2020-04-18] MEDS: carvediloL 6.25 MG TABLET PO SCH ×2 (08:26→20:37)
[2020-04-18] MEDS: Furosemide 20 MG TABLET PO SCH ×2 (08:26→20:37)
[2020-04-18] MEDS: Finasteride 5 MG TABLET PO SCH (08:26)
[2020-04-18] MEDS: Gabapentin 300 MG CAPSULE PO SCH ×2 (08:26→20:37)
[2020-04-18] MEDS: Insulin LISPRO 300 UNITS/3 ML VIAL SUBQ SCH ×4 (08:27→20:37)
[2020-04-18] MEDS ORDERED: Vancomycin 1,750 MG/517.5 ML IV.SOLN IVPB ONE ×2 (10:00→22:00)
[2020-04-18] MEDS: MethylPREDNISolone 40 MG/ML VIAL IVP SCH ×2 (10:14→21:13)
[2020-04-18 14:53] LABS: INR 1.6
[2020-04-18] MEDS: Azithromycin 500 MG in 0.9 % Sodium Chloride 250 ML IVPB SCH (17:09)
[2020-04-18] MEDS ORDERED: *HR* Warfarin 5 MG TABLET PO ONE (18:00)
[2020-04-18] MEDS ORDERED: Acetaminophen 325 MG TABLET PO ONE (20:35)
[2020-04-19] MEDS: Ipratropium/Albuterol Neb 3 ML IH SCH ×6 (04:18→23:12)
[2020-04-19 06:42] LABS: INR 1.7; Prothrombin Time 19.7 Seconds (9.4-12.1)
[2020-04-19 06:45] LABS: Basophils % 0.1 %; Hematocrit 33.7 % (37.5-50.1); Hemoglobin 10.5 g/dL (12.9-16.9); Immature Granulocytes % 1.3 % (0-4); Lymphocytes # 0.7 K/mcL (0.6-4.6); Lymphocytes % 5.7 %; Mean Corpuscular HGB Conc 31.2 g/dL (31.6-35.5); Mean Corpuscular Hemoglobin 31.3 pg (28.0-33.3); Mean Corpuscular Volume 100.6 fL (83.0-100.0); Mean Platelet Volume 9.7 fL (9.4-12.4); Monocytes # 0.3 K/mcL (0.0-1.3); Monocytes % 2.6 %; Neutrophils # 11.7 K/mcL (1.6-8.9); Platelet Count 219 K/mcL (140-400); Red Blood Count 3.35 M/mcL (4.19-5.50); Red Cell Distribution Width 14.6 % (11.5-14.5); Segmented Neutrophils % 90.3 %; White Blood Count 12.9 K/mcL (4.3-11.1)
[2020-04-19 07:11] LABS: BUN/Creatinine Ratio 28 (6-26); Blood Urea Nitrogen 26 mg/dL (8-23); Calcium 8.6 mg/dL (8.6-10.3); Carbon Dioxide 26 mEq/L (23-29); Chloride 99 mEq/L (98-107); Glucose 211 mg/dL (70-105); Osmolality,Calculated 285 (280-300); Potassium 4.4 mEq/L (3.5-5.1); Sodium 132 mEq/L (136-145); eGFR For African Americans > 60 (> 60); eGFR For Non-African Americans > 60 (> 60)
[2020-04-19] MEDS: Insulin LISPRO 300 UNITS/3 ML VIAL SUBQ SCH ×4 (08:11→20:56)
[2020-04-19] MEDS: Gabapentin 300 MG CAPSULE PO SCH (08:12)
[2020-04-19] MEDS: Finasteride 5 MG TABLET PO SCH (08:12)
[2020-04-19] MEDS: carvediloL 6.25 MG TABLET PO SCH ×2 (08:12→20:06)
[2020-04-19] MEDS: Furosemide 20 MG TABLET PO SCH ×2 (08:12→20:06)
[2020-04-19] MEDS ORDERED: Vancomycin 1,250 MG/262.5 ML IV.SOLN IVPB SCH (10:00)
[2020-04-19] MEDS: Azithromycin 500 MG in 0.9 % Sodium Chloride 250 ML IVPB SCH (17:03)
[2020-04-19] MEDS ORDERED: *HR* Warfarin 7.5 MG TABLET PO ONE (18:00)
[2020-04-19] MEDS ORDERED: Gabapentin 300 MG CAPSULE PO SCH (21:00)
[2020-04-19] MEDS ORDERED: Vancomycin 1,500 MG/265 ML IV.SOLN IVPB SCH (23:00)
[2020-04-20] MEDS: Ipratropium/Albuterol Neb 3 ML IH SCH ×2 (03:24→07:39)
[2020-04-20 04:28] LABS: INR 1.9; Prothrombin Time 21.8 Seconds (9.4-12.1)
[2020-04-20 04:29] LABS: Basophils % 0.1 %; Eosinophils % 0.1 %; Hematocrit 36.2 % (37.5-50.1); Hemoglobin 11.7 g/dL (12.9-16.9); Immature Granulocytes % 0.4 % (0-4); Lymphocytes # 1.2 K/mcL (0.6-4.6); Lymphocytes % 14.9 %; Mean Corpuscular HGB Conc 32.3 g/dL (31.6-35.5); Mean Corpuscular Hemoglobin 31.8 pg (28.0-33.3); Mean Corpuscular Volume 98.4 fL (83.0-100.0); Mean Platelet Volume 9.5 fL (9.4-12.4); Monocytes # 0.7 K/mcL (0.0-1.3); Monocytes % 8.5 %; Neutrophils # 6.2 K/mcL (1.6-8.9); Platelet Count 229 K/mcL (140-400); Red Blood Count 3.68 M/mcL (4.19-5.50); Red Cell Distribution Width 14.6 % (11.5-14.5); White Blood Count 8.2 K/mcL (4.3-11.1)
[2020-04-20 04:48] LABS: BUN/Creatinine Ratio 27 (6-26); Blood Urea Nitrogen 28 mg/dL (8-23); Calcium 8.5 mg/dL (8.6-10.3); Carbon Dioxide 29 mEq/L (23-29); Chloride 101 mEq/L (98-107); Glucose 145 mg/dL (70-105); Osmolality,Calculated 292 (280-300); Potassium 3.8 mEq/L (3.5-5.1); Sodium 137 mEq/L (136-145); eGFR For African Americans > 60 (> 60); eGFR For Non-African Americans > 60 (> 60)
[2020-04-20 07:35] VITALS: BP 170/74
[2020-04-20] MEDS: Finasteride 5 MG TABLET PO SCH (07:59)
[2020-04-20] MEDS: Furosemide 20 MG TABLET PO SCH (07:59)
[2020-04-20] MEDS: Insulin LISPRO 300 UNITS/3 ML VIAL SUBQ SCH (07:59)
[2020-04-20] MEDS: carvediloL 6.25 MG TABLET PO SCH (07:59)
[2020-04-20] MEDS ORDERED: MethylPREDNISolone 40 MG/ML VIAL IVP SCH (09:00)
[2020-04-20] MEDS ORDERED: Azithromycin 250 MG TABLET PO SCH (18:00)
[2020-04-20] MEDS ORDERED: *HR* Warfarin 7.5 MG TABLET PO ONE (18:00)
== END 2020-04-20 10:41 | disposition home or self-care (01) ==
LOC: 2ANU 19:56 → EMEROOARM 19:56 → 2ANU 04-17 00:44
PROVIDERS: ADMIT Internal Medicine; ATTEND Internal Medicine

== ENCOUNTER 2020-05-11 16:58 | Inpatient (IN) ==
[2020-05-11] MEDS ORDERED: *HR* Metoprolol 5 MG/5 ML VIAL IVP ONE (17:42)
[2020-05-11 17:56] LABS: Hematocrit 40.9 % (37.5-50.1); Hemoglobin 13.2 g/dL (12.9-16.9); Mean Corpuscular HGB Conc 32.3 g/dL (31.6-35.5); Mean Corpuscular Hemoglobin 31.5 pg (28.0-33.3); Mean Corpuscular Volume 97.6 fL (83.0-100.0); Mean Platelet Volume 9.4 fL (9.4-12.4); Platelet Count 265 K/mcL (140-400); Red Blood Count 4.19 M/mcL (4.19-5.50); Red Cell Distribution Width 14.1 % (11.5-14.5); White Blood Count 6.1 K/mcL (4.3-11.1)
[2020-05-11 18:19] LABS: BUN/Creatinine Ratio 12 (6-26); Blood Urea Nitrogen 13 mg/dL (8-23); Calcium 9.2 mg/dL (8.6-10.3); Carbon Dioxide 28 mEq/L (23-29); Chloride 101 mEq/L (98-107); Glucose 197 mg/dL (70-105); Osmolality,Calculated 294 (280-300); Potassium 3.5 mEq/L (3.5-5.1); Sodium 139 mEq/L (136-145); Troponin I < 0.03 ng/mL (< 0.04); eGFR For African Americans > 60 (> 60); eGFR For Non-African Americans > 60 (> 60)
[2020-05-11 18:23] LABS: Prothrombin Time 22.5 Seconds (9.4-12.1)
[2020-05-11 18:26] LABS: Activated Partial Thrombo Time 39.3 Seconds (26.0-36.0)
[2020-05-11] MEDS ORDERED: Acetaminophen 325 MG TABLET PO PRN (22:16)
[2020-05-11] MEDS ORDERED: Naloxone 0.4 MG/ML INJ IVP PRN (22:16)
[2020-05-11] MEDS ORDERED: *HR* Metoprolol 5 MG/5 ML VIAL IVP PRN (22:18)
[2020-05-12] MEDS ORDERED: Dextrose Gel 15 GM/37.5 ML TUBE PO PRN ×2 (00:56)
[2020-05-12] MEDS ORDERED: *HR* Dextrose 50 % in Water (Vial) 50 ML VIAL IVP PRN (00:56)
[2020-05-12] MEDS ORDERED: D5% in Water 1,000 ML IVC PRN (00:56)
[2020-05-12] MEDS: Melatonin 3 MG TABLET PO PRN ×2 (00:57→20:13)
[2020-05-12 03:47] LABS: Hematocrit 38.7 % (37.5-50.1); Hemoglobin 12.5 g/dL (12.9-16.9); Mean Corpuscular HGB Conc 32.3 g/dL (31.6-35.5); Mean Corpuscular Hemoglobin 31.9 pg (28.0-33.3); Mean Corpuscular Volume 98.7 fL (83.0-100.0); Mean Platelet Volume 9.7 fL (9.4-12.4); Platelet Count 236 K/mcL (140-400); Red Blood Count 3.92 M/mcL (4.19-5.50); Red Cell Distribution Width 14.4 % (11.5-14.5); White Blood Count 5.3 K/mcL (4.3-11.1)
[2020-05-12 03:59] LABS: INR 1.9; Prothrombin Time 21.3 Seconds (9.4-12.1)
[2020-05-12 04:07] LABS: BUN/Creatinine Ratio 13 (6-26); Blood Urea Nitrogen 14 mg/dL (8-23); Carbon Dioxide 28 mEq/L (23-29); Chloride 103 mEq/L (98-107); Chol/HDL Ratio 12.6 (0-4.9); Cholesterol 302 mg/dL (< 200); Glucose 102 mg/dL (70-105); HDL Cholesterol 24 mg/dL (40-59); Osmolality,Calculated 289 (280-300); Potassium 3.7 mEq/L (3.5-5.1); Sodium 139 mEq/L (136-145); Triglycerides 848 mg/dL (< 150); eGFR For African Americans > 60 (> 60); eGFR For Non-African Americans > 60 (> 60)
[2020-05-12] MEDS: Insulin LISPRO 300 UNITS/3 ML VIAL SUBQ SCH ×3 (07:28→19:52)
[2020-05-12] MEDS: Finasteride 5 MG TABLET PO SCH (07:35)
[2020-05-12] MEDS ORDERED: carvediloL 6.25 MG TABLET PO SCH (08:00)
[2020-05-12] MEDS ORDERED: Furosemide 20 MG TABLET PO SCH (08:00)
[2020-05-12] MEDS ORDERED: Perflutren Lipid Microsphere 1.3 ML in 0.9 % Sodium Chloride 8.7 ML IVP PRN (10:06)
[2020-05-12] MEDS: Levalbuterol Neb 1.25 MG/3 ML IH SCH ×4 (10:51→22:31)
[2020-05-12] MEDS: Fenofibrate 54 MG TABLET PO SCH (11:31)
[2020-05-12] MEDS ORDERED: carvediloL 6.25 MG TABLET PO ONE (11:45)
[2020-05-12] MEDS: DilTIAZem CD (24hr) 120 MG CAP.ER.24H PO SCH (15:10)
[2020-05-12] MEDS ORDERED: Ipratropium Neb 0.5 MG NEBULIZER ONE (15:38)
[2020-05-12] MEDS ORDERED: Ipratropium Neb 0.5 MG NEBULIZER IH ONE (15:44)
[2020-05-12] MEDS ORDERED: *HR* Warfarin 5 MG TABLET PO ONE (18:00)
[2020-05-12] MEDS ORDERED: Warfarin perPT PO PRN (18:00)
[2020-05-12] MEDS: carvediloL 25 MG TABLET PO SCH (19:54)
[2020-05-12] MEDS: Furosemide 20 MG/2 ML VIAL IVP SCH (20:13)
[2020-05-12] MEDS ORDERED: Gabapentin 300 MG CAPSULE PO SCH (21:00)
[2020-05-12] MEDS: Budesonide/Formoterol 80/4.5 1 PUFF INH IH SCH (22:31)
[2020-05-13] MEDS: Levalbuterol Neb 1.25 MG/3 ML IH SCH ×2 (03:32→09:14)
[2020-05-13 05:26] LABS: Basophils % 0.4 %; Eosinophils # 0.2 K/mcL (0.0-0.6); Eosinophils % 3.4 %; Hematocrit 40.9 % (37.5-50.1); Hemoglobin 13.1 g/dL (12.9-16.9); Immature Granulocytes % 0.2 % (0-4); Lymphocytes # 1.1 K/mcL (0.6-4.6); Lymphocytes % 25.4 %; Mean Corpuscular Hemoglobin 31.6 pg (28.0-33.3); Mean Corpuscular Volume 98.6 fL (83.0-100.0); Mean Platelet Volume 9.5 fL (9.4-12.4); Monocytes # 0.7 K/mcL (0.0-1.3); Monocytes % 14.8 %; Neutrophils # 2.5 K/mcL (1.6-8.9); Platelet Count 242 K/mcL (140-400); Red Blood Count 4.15 M/mcL (4.19-5.50); Red Cell Distribution Width 14.1 % (11.5-14.5); Segmented Neutrophils % 55.8 %; White Blood Count 4.5 K/mcL (4.3-11.1)
[2020-05-13 05:27] LABS: INR 1.6; Prothrombin Time 17.7 Seconds (9.4-12.1)
[2020-05-13 05:35] LABS: Estimated Average Glucose 163 mg/dl; Hemoglobin A1C 7.3 %
[2020-05-13 05:45] LABS: BUN/Creatinine Ratio 12 (6-26); Blood Urea Nitrogen 13 mg/dL (8-23); Calcium 9.1 mg/dL (8.6-10.3); Carbon Dioxide 30 mEq/L (23-29); Chloride 100 mEq/L (98-107); Glucose 109 mg/dL (70-105); Magnesium 1.8 mg/dL (1.6-2.6); Osmolality,Calculated 285 (280-300); Phosphorous 3.7 mg/dL (2.7-4.5); Sodium 137 mEq/L (136-145); eGFR For African Americans > 60 (> 60); eGFR For Non-African Americans > 60 (> 60)
[2020-05-13] MEDS: Insulin LISPRO 300 UNITS/3 ML VIAL SUBQ SCH (08:30)
[2020-05-13] MEDS: DilTIAZem CD (24hr) 120 MG CAP.ER.24H PO SCH (08:32)
[2020-05-13] MEDS: Finasteride 5 MG TABLET PO SCH (08:32)
[2020-05-13] MEDS: Furosemide 20 MG/2 ML VIAL IVP SCH (08:32)
[2020-05-13] MEDS: carvediloL 25 MG TABLET PO SCH (08:32)
[2020-05-13] MEDS: Fenofibrate 54 MG TABLET PO SCH (08:32)
[2020-05-13] MEDS: Budesonide/Formoterol 80/4.5 1 PUFF INH IH SCH (09:14)
[2020-05-13 11:18] VITALS: BP 122/71
[2020-05-13] MEDS ORDERED: *HR* Warfarin 7.5 MG TABLET PO ONE (18:00)
== END 2020-05-13 13:55 | disposition home health service (06) | DRG 291 ==
LOC: 3BNU 16:58 → EMEROOARM 16:58 → SUATTDRO 20:29 → 3BNU 21:11
PROVIDERS: ADMIT Student in an Organized Health Care Education/Training Program; ATTEND Internal Medicine

== ENCOUNTER 2020-06-25 20:30 | Observation (INO) ==
[2020-06-25] MEDS ORDERED: Ipratropium/Albuterol Neb 3 ML ONE (20:41)
[2020-06-25] MEDS ORDERED: Ipratropium/Albuterol Neb 3 ML IH ONE ×2 (20:43→21:23)
[2020-06-25 20:48] LABS: ABG Base Excess 4 mEq/L (-2 to 3); ABG HCO3 30 mEq/L (21-27); ABG Oxygen Saturation 99 % (95-98); ABG PCO2 51 mmHg (35-45); ABG PH 7.38 pH Units (7.32-7.45); ABG PO2 140 mmHg (85-104); ABG TCO2 32 mEq/L (20-26); Blood Gas Modality S/T
[2020-06-25 20:50] LABS: Basophils # 0.1 K/mcL (0.0-0.2); Basophils % 0.6 %; Eosinophils # 0.4 K/mcL (0.0-0.6); Hematocrit 45.2 % (37.5-50.1); Hemoglobin 14.9 g/dL (12.9-16.9); Immature Granulocytes % 0.2 % (0-4); Lymphocytes # 1.3 K/mcL (0.6-4.6); Lymphocytes % 14.7 %; Mean Corpuscular Hemoglobin 30.7 pg (28.0-33.3); Monocytes % 11.1 %; Neutrophils # 6.2 K/mcL (1.6-8.9); Platelet Count 231 K/mcL (140-400); Red Blood Count 4.86 M/mcL (4.19-5.50); Red Cell Distribution Width 13.4 % (11.5-14.5); Segmented Neutrophils % 69.4 %
[2020-06-25 21:12] LABS: BUN/Creatinine Ratio 15 (6-26); Blood Urea Nitrogen 18 mg/dL (8-23); Calcium 9.7 mg/dL (8.6-10.3); Carbon Dioxide 27 mEq/L (23-29); Chloride 102 mEq/L (98-107); Glucose 90 mg/dL (70-105); Magnesium 1.9 mg/dL (1.6-2.6); Osmolality,Calculated 287 (280-300); Potassium 3.8 mEq/L (3.5-5.1); Sodium 138 mEq/L (136-145); Troponin I < 0.03 ng/mL (< 0.04); eGFR For African Americans > 60 (> 60); eGFR For Non-African Americans > 60 (> 60)
[2020-06-25] MEDS ORDERED: methylPREDNISolone 125 MG/2 ML VIAL IVP ONE (21:23)
[2020-06-25] MEDS ORDERED: 0.9 % Sodium Chloride 500 ML IVC ONE (21:46)
[2020-06-25] MEDS ORDERED: 0.9 % Sodium Chloride 1,000 ML ONE (22:14)
[2020-06-25] MEDS ORDERED: Morphine Sulfate Immed Rel 15 MG TABLET PO ONE (22:28)
[2020-06-25] MEDS ORDERED: Ondansetron 4 MG/2 ML VIAL IVP PRN (22:52)
[2020-06-25] MEDS ORDERED: Acetaminophen 325 MG TABLET PO PRN (22:52)
[2020-06-25] MEDS ORDERED: Naloxone 0.4 MG/ML INJ IVP PRN (22:52)
[2020-06-25] MEDS ORDERED: Aspirin 325 MG TABLET PO ONE (22:54)
[2020-06-25] MEDS ORDERED: Nitroglycerin 0.4 MG TAB.SUBL SL PRN (22:54)
[2020-06-25 23:14] LABS: Prothrombin Time 33.8 Seconds (9.4-12.1)
[2020-06-25] MEDS ORDERED: Azithromycin 500 MG in 0.9 % Sodium Chloride 250 ML IVPB SCH (23:45)
[2020-06-26] MEDS ORDERED: *HR* Dextrose 50 % in Water (Vial) 50 ML VIAL IVP PRN (01:09)
[2020-06-26] MEDS ORDERED: Dextrose Gel 15 GM/37.5 ML TUBE PO PRN ×2 (01:09)
[2020-06-26] MEDS ORDERED: D5% in Water 1,000 ML IVC PRN (01:09)
[2020-06-26] MEDS: MethylPREDNISolone 40 MG/ML VIAL IVP SCH ×4 (01:41→23:42)
[2020-06-26 02:28] LABS: Basophils % 0.4 %; Eosinophils % 0.4 %; Hematocrit 45.4 % (37.5-50.1); Immature Granulocytes % 0.4 % (0-4); Lymphocytes # 0.9 K/mcL (0.6-4.6); Lymphocytes % 10.7 %; Mean Corpuscular Hemoglobin 30.5 pg (28.0-33.3); Mean Corpuscular Volume 92.3 fL (83.0-100.0); Monocytes # 0.2 K/mcL (0.0-1.3); Monocytes % 2.1 %; Neutrophils # 7.1 K/mcL (1.6-8.9); Platelet Count 212 K/mcL (140-400); Red Blood Count 4.92 M/mcL (4.19-5.50); Red Cell Distribution Width 13.7 % (11.5-14.5); White Blood Count 8.2 K/mcL (4.3-11.1)
[2020-06-26 02:38] LABS: Prothrombin Time 33.5 Seconds (9.4-12.1)
[2020-06-26] MEDS: Ipratropium/Albuterol Neb 3 ML IH SCH ×4 (02:41→11:17)
[2020-06-26] MEDS: Budesonide/Formoterol 160/4.5 1 PUFF INH IH SCH ×3 (02:41→22:17)
[2020-06-26 02:46] LABS: BUN/Creatinine Ratio 15 (6-26); Blood Urea Nitrogen 19 mg/dL (8-23); Calcium 9.3 mg/dL (8.6-10.3); Carbon Dioxide 28 mEq/L (23-29); Chloride 101 mEq/L (98-107); Chol/HDL Ratio 5.8 (0-4.9); Cholesterol 133 mg/dL (< 200); Glucose 146 mg/dL (70-105); HDL Cholesterol 23 mg/dL (40-59); LDL Cholesterol,Calculated 55 mg/dL (< 100); Osmolality,Calculated 291 (280-300); Phosphorous 3.2 mg/dL (2.7-4.5); Potassium 3.9 mEq/L (3.5-5.1); Sodium 138 mEq/L (136-145); Triglycerides 274 mg/dL (< 150); eGFR For African Americans > 60 (> 60); eGFR For Non-African Americans 59 (> 60)
[2020-06-26] MEDS: Furosemide 40 MG/4 ML VIAL IVP SCH ×2 (04:12→08:08)
[2020-06-26] MEDS ORDERED: Warfarin perPT PO PRN (04:50)
[2020-06-26] MEDS ORDERED: Isovue-370 500 ML BOTTLE IVP ONE (05:12)
[2020-06-26] MEDS ORDERED: Insulin LISPRO 300 UNITS/3 ML VIAL SUBQ SCH ×2 (06:00→21:00)
[2020-06-26] MEDS: DilTIAZem CD (24hr) 120 MG CAP.ER.24H PO SCH (08:08)
[2020-06-26] MEDS: Aspirin 81 MG TAB.CHEW PO SCH (08:08)
[2020-06-26] MEDS: carvediloL 25 MG TABLET PO SCH ×2 (08:08→16:09)
[2020-06-26] MEDS: Insulin LISPRO 300 UNITS/3 ML VIAL SUBQ SCH ×2 (12:00→16:08)
[2020-06-26] MEDS ORDERED: Ipratropium/Albuterol Neb 3 ML IH PRN (15:01)
[2020-06-26] MEDS ORDERED: *HR* Warfarin 7.5 MG TABLET PO SCH (18:00)
[2020-06-26] MEDS ORDERED: *HR* Warfarin 5 MG TABLET PO ONE (18:00)
[2020-06-26] MEDS ORDERED: traZODone 50 MG TABLET PO SCH (21:00)
[2020-06-27] MEDS ORDERED: Azithromycin 500 MG in 0.9 % Sodium Chloride 250 ML IVPB SCH (04:00)
[2020-06-27 06:01] LABS: INR 2.8; Prothrombin Time 31.3 Seconds (9.4-12.1)
[2020-06-27 07:32] VITALS: BP 132/62
[2020-06-27] MEDS: Budesonide/Formoterol 160/4.5 1 PUFF INH IH SCH (07:38)
[2020-06-27] MEDS: MethylPREDNISolone 40 MG/ML VIAL IVP SCH (08:16)
[2020-06-27] MEDS: Aspirin 81 MG TAB.CHEW PO SCH (08:17)
[2020-06-27] MEDS: Insulin LISPRO 300 UNITS/3 ML VIAL SUBQ SCH (08:17)
[2020-06-27] MEDS: DilTIAZem CD (24hr) 120 MG CAP.ER.24H PO SCH (08:17)
[2020-06-27] MEDS: carvediloL 25 MG TABLET PO SCH (08:17)
[2020-06-27] MEDS ORDERED: Furosemide 20 MG TABLET PO SCH (09:00)
[2020-06-28] MEDS ORDERED: *HR* Warfarin 5 MG TABLET PO SCH (18:00)
== END 2020-06-27 11:06 | disposition home or self-care (01) ==
LOC: EMEROOARM 20:30 → 3BNU 20:30 → SUATTDRO 06-26 00:41 → 3BNU 06-26 01:14
PROVIDERS: ADMIT Student in an Organized Health Care Education/Training Program; ATTEND Internal Medicine

== ENCOUNTER 2020-07-03 22:18 | Observation (INO) ==
[2020-07-03] MEDS ORDERED: Ipratropium/Albuterol Neb 3 ML IH ONE (22:28)
[2020-07-03 23:06] LABS: Basophils % 0.2 %; Eosinophils # 0.7 K/mcL (0.0-0.6); Eosinophils % 6.6 %; Hematocrit 45.7 % (37.5-50.1); Immature Granulocytes % 0.8 % (0-4); Lymphocytes # 1.9 K/mcL (0.6-4.6); Lymphocytes % 19.3 %; Mean Corpuscular HGB Conc 32.8 g/dL (31.6-35.5); Mean Corpuscular Volume 94.4 fL (83.0-100.0); Mean Platelet Volume 9.7 fL (9.4-12.4); Monocytes % 9.7 %; Neutrophils # 6.2 K/mcL (1.6-8.9); Platelet Count 228 K/mcL (140-400); Red Blood Count 4.84 M/mcL (4.19-5.50); Red Cell Distribution Width 13.9 % (11.5-14.5); Segmented Neutrophils % 63.4 %; White Blood Count 9.8 K/mcL (4.3-11.1)
[2020-07-03 23:26] LABS: Bilirubin,Urine Negative (Negative); Blood,Urine Negative (Negative); Clarity,Urine Clear (Clear); Color,Urine Light-Yellow (Yellow); Glucose,Urine (UA) Normal (Normal); Ketones,Urine Negative (Negative); Leukocyte Esterase,Urine Small (Negative); Nitrite,Urine Positive (Negative); PH,Urine 7.5 pH Units (5.0-8.0); Protein,Urine Trace mg/dL (Neg-Trace); RBC,Urine 0-3 per hpf (0-3); Specific Gravity,Urine 1.016 (1.010-1.025); Squamous Epithelial Cell,Urine Few per hpf (None-Few); Urobilinogen,Urine Normal (Normal); WBC,Urine 15-30 per hpf (0-3)
[2020-07-03 23:29] LABS: Alanine Aminotransferase 22 Units/L (7-52); Albumin 4.1 g/dL (3.5-5.7); Albumin/Globulin Ratio 1.3 (1.1-2.2); Alkaline Phosphatase 49 Units/L (34-104); Aspartate Amino Transferase 19 Units/L (13-39); BUN/Creatinine Ratio 11 (6-26); Bilirubin,Direct 0.1 mg/dL (0.0-0.2); Bilirubin,Indirect 0.6 mg/dL (0.0-1.0); Bilirubin,Total 0.7 mg/dL (0.3-1.0); Blood Urea Nitrogen 19 mg/dL (8-23); Calcium 9.3 mg/dL (8.6-10.3); Carbon Dioxide 30 mEq/L (23-29); Chloride 100 mEq/L (98-107); Globulin 3.1 g/dL (2.4-3.5); Glucose 105 mg/dL (70-105); Osmolality,Calculated 291 (280-300); Potassium 3.7 mEq/L (3.5-5.1); Sodium 139 mEq/L (136-145); Total Protein 7.2 g/dL (6.4-8.9); Troponin I < 0.03 ng/mL (< 0.04); eGFR For African Americans 48 (> 60); eGFR For Non-African Americans 40 (> 60)
[2020-07-03] MEDS ORDERED: cefTRIAXone 1,000 MG in Water for inj. (sterile) 10 ML IVP ONE (23:32)
[2020-07-04] MEDS ORDERED: Isovue-370 500 ML BOTTLE IVP ONE
[2020-07-04] MEDS ORDERED: methylPREDNISolone 125 MG/2 ML VIAL IVP ONE (00:05)
[2020-07-04] MEDS ORDERED: Naloxone 0.4 MG/ML INJ IVP PRN (00:07)
[2020-07-04] MEDS ORDERED: 0.9 % Sodium Chloride 250 ML IVC ONE (00:32)
[2020-07-04] MEDS ORDERED: 0.9 % Sodium Chloride 1,000 ML IVC SCH (00:45)
[2020-07-04] MEDS ORDERED: Dextrose Gel 15 GM/37.5 ML TUBE PO PRN ×2 (00:57)
[2020-07-04] MEDS ORDERED: D5% in Water 1,000 ML IVC PRN (00:57)
[2020-07-04] MEDS ORDERED: *HR* Dextrose 50 % in Water (Vial) 50 ML VIAL IVP PRN (00:57)
[2020-07-04 01:58] LABS: Basophils % 0.2 %; Eosinophils # 0.6 K/mcL (0.0-0.6); Eosinophils % 6.8 %; Hematocrit 45.2 % (37.5-50.1); Hemoglobin 14.6 g/dL (12.9-16.9); Immature Granulocytes % 0.7 % (0-4); Lymphocytes # 1.5 K/mcL (0.6-4.6); Lymphocytes % 16.6 %; Mean Corpuscular HGB Conc 32.3 g/dL (31.6-35.5); Mean Corpuscular Hemoglobin 31.3 pg (28.0-33.3); Mean Corpuscular Volume 96.8 fL (83.0-100.0); Mean Platelet Volume 9.6 fL (9.4-12.4); Monocytes # 0.7 K/mcL (0.0-1.3); Neutrophils # 6.2 K/mcL (1.6-8.9); Platelet Count 218 K/mcL (140-400); Red Blood Count 4.67 M/mcL (4.19-5.50); Red Cell Distribution Width 14.1 % (11.5-14.5); Segmented Neutrophils % 67.7 %; White Blood Count 9.2 K/mcL (4.3-11.1)
[2020-07-04 02:05] LABS: INR 2.1; Prothrombin Time 23.7 Seconds (9.4-12.1)
[2020-07-04 02:07] LABS: Activated Partial Thrombo Time 36.7 Seconds (26.0-36.0)
[2020-07-04 02:17] LABS: Magnesium 2.3 mg/dL (1.6-2.6); Phosphorous 2.8 mg/dL (2.7-4.5); Potassium 3.9 mEq/L (3.5-5.1)
[2020-07-04] MEDS: Ipratropium/Albuterol Neb 3 ML IH SCH ×6 (04:40→23:56)
[2020-07-04] MEDS: carvediloL 25 MG TABLET PO SCH ×2 (07:41→15:48)
[2020-07-04] MEDS: Fenofibrate 54 MG TABLET PO SCH (07:41)
[2020-07-04] MEDS: Insulin LISPRO 300 UNITS/3 ML VIAL SUBQ SCH ×3 (07:41→15:48)
[2020-07-04] MEDS: Finasteride 5 MG TABLET PO SCH (07:41)
[2020-07-04] MEDS ORDERED: MethylPREDNISolone 40 MG/ML VIAL IVP SCH (08:00)
[2020-07-04] MEDS: Budesonide/Formoterol 160/4.5 1 PUFF INH IH SCH ×2 (10:55→19:49)
[2020-07-04] MEDS ORDERED: *HR* Warfarin 7.5 MG TABLET PO ONE (18:00)
[2020-07-04] MEDS ORDERED: Warfarin perPT PO PRN (18:00)
[2020-07-04] MEDS ORDERED: Gabapentin 300 MG CAPSULE PO SCH (21:00)
[2020-07-04] MEDS ORDERED: Insulin LISPRO 300 UNITS/3 ML VIAL SUBQ SCH (21:00)
[2020-07-04] MEDS ORDERED: clonazePAM 0.5 MG TABLET PO SCH (21:00)
[2020-07-04] MEDS ORDERED: traZODone 50 MG TABLET PO SCH (21:00)
[2020-07-04] MEDS ORDERED: Melatonin 3 MG TABLET PO SCH (21:00)
[2020-07-05] MEDS: Ipratropium/Albuterol Neb 3 ML IH SCH ×3 (04:25→11:19)
[2020-07-05 05:14] LABS: INR 1.9; Prothrombin Time 21.1 Seconds (9.4-12.1)
[2020-07-05 05:35] LABS: BUN/Creatinine Ratio 21 (6-26); Blood Urea Nitrogen 26 mg/dL (8-23); Calcium 9.4 mg/dL (8.6-10.3); Carbon Dioxide 27 mEq/L (23-29); Chloride 103 mEq/L (98-107); Glucose 186 mg/dL (70-105); Osmolality,Calculated 296 (280-300); Potassium 4.5 mEq/L (3.5-5.1); Sodium 138 mEq/L (136-145); eGFR For African Americans > 60 (> 60); eGFR For Non-African Americans 58 (> 60)
[2020-07-05] MEDS: Budesonide/Formoterol 160/4.5 1 PUFF INH IH SCH (07:17)
[2020-07-05] MEDS: Insulin LISPRO 300 UNITS/3 ML VIAL SUBQ SCH ×2 (08:14→11:28)
[2020-07-05] MEDS: Finasteride 5 MG TABLET PO SCH (08:15)
[2020-07-05] MEDS: Fenofibrate 54 MG TABLET PO SCH (08:15)
[2020-07-05] MEDS: carvediloL 25 MG TABLET PO SCH (08:15)
[2020-07-05] MEDS ORDERED: predniSONE 20 MG TABLET PO SCH (09:00)
[2020-07-05] MEDS ORDERED: Furosemide 20 MG TABLET PO SCH (09:00)
[2020-07-05 10:51] VITALS: BP 123/72
[2020-07-05] MEDS ORDERED: *HR* Warfarin 5 MG TABLET PO ONE (18:00)
== END 2020-07-05 12:17 | disposition home health service (06) ==
LOC: 2ANU 22:18 → EMEROOARM 22:18 → 2ANU 07-04 01:23
PROVIDERS: ADMIT Internal Medicine; ATTEND Internal Medicine

== ENCOUNTER 2020-07-17 20:18 | Observation (INO) ==
[2020-07-17] MEDS ORDERED: Isovue-370 500 ML BOTTLE IVP ONE (20:52)
[2020-07-17] MEDS ORDERED: methylPREDNISolone 125 MG/2 ML VIAL IVP ONE (20:56)
[2020-07-17 21:02] LABS: Basophils % 0.1 %; Eosinophils # 0.1 K/mcL (0.0-0.6); Eosinophils % 0.9 %; Hematocrit 46.2 % (37.5-50.1); Hemoglobin 15.2 g/dL (12.9-16.9); Immature Granulocytes % 0.3 % (0-4); Lymphocytes # 1.6 K/mcL (0.6-4.6); Lymphocytes % 16.4 %; Mean Corpuscular HGB Conc 32.9 g/dL (31.6-35.5); Mean Corpuscular Hemoglobin 30.6 pg (28.0-33.3); Mean Corpuscular Volume 93.1 fL (83.0-100.0); Mean Platelet Volume 10.2 fL (9.4-12.4); Monocytes # 0.7 K/mcL (0.0-1.3); Monocytes % 6.7 %; Neutrophils # 7.5 K/mcL (1.6-8.9); Platelet Count 244 K/mcL (140-400); Red Blood Count 4.96 M/mcL (4.19-5.50); Red Cell Distribution Width 13.9 % (11.5-14.5); Segmented Neutrophils % 75.6 %; White Blood Count 9.9 K/mcL (4.3-11.1)
[2020-07-17] MEDS ORDERED: Ipratropium/Albuterol Neb 3 ML IH ONE (21:02)
[2020-07-17 21:09] LABS: INR 2.4; Prothrombin Time 27.4 Seconds (9.4-12.1)
[2020-07-17 21:12] LABS: Activated Partial Thrombo Time 39.1 Seconds (26.0-36.0)
[2020-07-17 21:18] LABS: Alanine Aminotransferase 31 Units/L (7-52); Albumin 4.2 g/dL (3.5-5.7); Albumin/Globulin Ratio 1.4 (1.1-2.2); Alkaline Phosphatase 54 Units/L (34-104); Aspartate Amino Transferase 24 Units/L (13-39); BUN/Creatinine Ratio 17 (6-26); Bilirubin,Direct 0.1 mg/dL (0.0-0.2); Bilirubin,Indirect 0.8 mg/dL (0.0-1.0); Bilirubin,Total 0.9 mg/dL (0.3-1.0); Blood Urea Nitrogen 24 mg/dL (8-23); Calcium 9.9 mg/dL (8.6-10.3); Carbon Dioxide 32 mEq/L (23-29); Chloride 98 mEq/L (98-107); Glucose 118 mg/dL (70-105); Osmolality,Calculated 293 (280-300); Potassium 3.6 mEq/L (3.5-5.1); Sodium 139 mEq/L (136-145); Total Protein 7.2 g/dL (6.4-8.9); Troponin I 0.06 ng/mL (< 0.04); eGFR For African Americans > 60 (> 60); eGFR For Non-African Americans 50 (> 60)
[2020-07-17] MEDS ORDERED: Aspirin 81 MG TAB.CHEW PO STA (21:39)
[2020-07-17] MEDS ORDERED: 0.9 % Sodium Chloride 500 ML IVC ONE (21:53)
[2020-07-17] MEDS ORDERED: Azithromycin 500 MG in 0.9 % Sodium Chloride 250 ML IVPB ONE (23:07)
[2020-07-17] MEDS ORDERED: *HR* Heparin 5,000 UNIT/ML VIAL IVP PRN ×2 (23:14)
[2020-07-17] MEDS ORDERED: *HR* Heparin 5,000 UNIT/ML VIAL IVP ONE (23:14)
[2020-07-17] MEDS ORDERED: cefTRIAXone 2,000 MG in Water for inj. (sterile) 20 ML IVP SCH (23:45)
[2020-07-18] MEDS ORDERED: Melatonin 3 MG TABLET PO PRN (00:47)
[2020-07-18] MEDS ORDERED: Albuterol 2.5 MG/3 ML NEBULIZER IH PRN (00:47)
[2020-07-18] MEDS ORDERED: Naloxone 0.4 MG/ML INJ IVP PRN (00:47)
[2020-07-18] MEDS ORDERED: Ondansetron 4 MG/2 ML VIAL IVP PRN (00:47)
[2020-07-18] MEDS: Heparin 25,000UNIT/250ML 1/2NS 25,000 UNIT/250 ML IV.SOLN IVC SCH ×2 (01:04→21:00)
[2020-07-18 01:45] LABS: Adenovirus Not Detected (Not Detect); Coronavirus 229E Not Detected (Not Detect); Coronavirus HKU1 Not Detected (Not Detect); Coronavirus NL63 Not Detected (Not Detect); Coronavirus OC43 Not Detected (Not Detect); Human Metapneumovirus Not Detected (Not Detect); SARS-CoV-2 Not Detected (Not Detect)
[2020-07-18 01:46] LABS: Bordetella Pertussis Not Detected (Not Detect); Chlamydophila pneumoniae Not Detected (Not Detect); Human Rhinovirus/Enterovirus DETECTED (Not Detect); Influenza A Subtype 2009 H1 Not Detected (Not Detect); Influenza B Not Detected (Not Detect); Mycoplasma pneumoniae Not Detected (Not Detect); Parainfluenza Virus 1 Not Detected (Not Detect); Parainfluenza Virus 2 Not Detected (Not Detect); Parainfluenza Virus 3 Not Detected (Not Detect); Parainfluenza Virus 4 Not Detected (Not Detect); Respiratory Syncytial Virus Not Detected (Not Detect)
[2020-07-18] MEDS: Albuterol 2.5 MG/3 ML NEBULIZER IH SCH ×2 (03:50→07:54)
[2020-07-18 04:14] LABS: Hematocrit 45.2 % (37.5-50.1); Hemoglobin 14.2 g/dL (12.9-16.9); Immature Granulocytes % 0.4 % (0-4); Lymphocytes # 0.7 K/mcL (0.6-4.6); Lymphocytes % 7.9 %; Mean Corpuscular HGB Conc 31.4 g/dL (31.6-35.5); Mean Corpuscular Volume 95.4 fL (83.0-100.0); Mean Platelet Volume 10.1 fL (9.4-12.4); Monocytes % 0.5 %; Platelet Count 218 K/mcL (140-400); Red Blood Count 4.74 M/mcL (4.19-5.50); Segmented Neutrophils % 91.2 %; White Blood Count 8.4 K/mcL (4.3-11.1)
[2020-07-18 04:17] LABS: Neutrophils # 7.7 K/mcL (1.6-8.9)
[2020-07-18 04:32] LABS: Calcium 9.6 mg/dL (8.6-10.3); Potassium 3.6 mEq/L (3.5-5.1)
[2020-07-18 04:34] LABS: Platelet Estimate Normal (Normal); Reactive Lymphocytes Present (Not Present)
[2020-07-18] MEDS ORDERED: Ipratropium/Albuterol Neb 3 ML IH PRN (08:14)
[2020-07-18] MEDS: carvediloL 6.25 MG TABLET PO SCH ×2 (08:30→17:18)
[2020-07-18] MEDS: predniSONE 20 MG TABLET PO SCH (08:30)
[2020-07-18] MEDS: Furosemide 20 MG TABLET PO SCH ×2 (08:30→17:18)
[2020-07-18] MEDS: Nicotine 21 MG PATCH.TD24 TD SCH (08:35)
[2020-07-18] MEDS: Budesonide/Formoterol 160/4.5 1 PUFF INH IH SCH ×2 (10:38→22:05)
[2020-07-18] MEDS: Ipratropium/Albuterol Neb 3 ML IH SCH ×3 (10:38→22:04)
[2020-07-18] MEDS ORDERED: hydrOXYzine pamoate 25 MG CAPSULE PO PRN (13:13)
[2020-07-18] MEDS ORDERED: Acetaminophen 325 MG TABLET PO PRN (17:03)
[2020-07-18] MEDS ORDERED: Warfarin perPT PO PRN (18:00)
[2020-07-18] MEDS ORDERED: clonazePAM 0.5 MG TABLET PO SCH (21:00)
[2020-07-18] MEDS ORDERED: Gabapentin 300 MG CAPSULE PO SCH (21:00)
[2020-07-18] MEDS ORDERED: traZODone 50 MG TABLET PO SCH (21:00)
[2020-07-18] MEDS: Budesonide/Formoterol 80/4.5 1 PUFF INH IH SCH (22:04)
[2020-07-19] MEDS: Ipratropium/Albuterol Neb 3 ML IH SCH ×3 (04:22→16:00)
[2020-07-19 06:11] LABS: Basophils % 0.1 %; Hematocrit 41.8 % (37.5-50.1); Hemoglobin 13.1 g/dL (12.9-16.9); Immature Granulocytes % 0.6 % (0-4); Mean Corpuscular HGB Conc 31.3 g/dL (31.6-35.5); Mean Corpuscular Hemoglobin 30.3 pg (28.0-33.3); Mean Corpuscular Volume 96.5 fL (83.0-100.0); Mean Platelet Volume 10.3 fL (9.4-12.4); Monocytes # 1.4 K/mcL (0.0-1.3); Monocytes % 8.5 %; Neutrophils # 13.2 K/mcL (1.6-8.9); Platelet Count 229 K/mcL (140-400); Red Blood Count 4.33 M/mcL (4.19-5.50); Red Cell Distribution Width 14.1 % (11.5-14.5); Segmented Neutrophils % 81.8 %
[2020-07-19 06:14] LABS: Lymphocytes # 1.5 K/mcL (0.6-4.6); White Blood Count 16.1 K/mcL (4.3-11.1)
[2020-07-19 06:30] LABS: Alanine Aminotransferase 21 Units/L (7-52); Albumin 3.9 g/dL (3.5-5.7); Albumin/Globulin Ratio 1.4 (1.1-2.2); Alkaline Phosphatase 42 Units/L (34-104); Aspartate Amino Transferase 15 Units/L (13-39); BUN/Creatinine Ratio 28 (6-26); Bilirubin,Total 0.5 mg/dL (0.3-1.0); Blood Urea Nitrogen 35 mg/dL (8-23); Calcium 9.4 mg/dL (8.6-10.3); Carbon Dioxide 34 mEq/L (23-29); Chloride 100 mEq/L (98-107); Globulin 2.8 g/dL (2.4-3.5); Glucose 79 mg/dL (70-105); Magnesium 2.3 mg/dL (1.6-2.6); Osmolality,Calculated 295 (280-300); Phosphorous 3.7 mg/dL (2.7-4.5); Potassium 4.1 mEq/L (3.5-5.1); Sodium 139 mEq/L (136-145); Total Protein 6.7 g/dL (6.4-8.9); eGFR For African Americans > 60 (> 60); eGFR For Non-African Americans 58 (> 60)
[2020-07-19] MEDS: Heparin 25,000UNIT/250ML 1/2NS 25,000 UNIT/250 ML IV.SOLN IVC SCH (08:39)
[2020-07-19] MEDS: Furosemide 20 MG TABLET PO SCH (08:46)
[2020-07-19] MEDS: carvediloL 6.25 MG TABLET PO SCH (08:47)
[2020-07-19] MEDS: predniSONE 20 MG TABLET PO SCH (08:50)
[2020-07-19] MEDS: Nicotine 21 MG PATCH.TD24 TD SCH (08:52)
[2020-07-19] MEDS ORDERED: cefTRIAXone 1,000 MG in Water for inj. (sterile) 10 ML IVP SCH (09:00)
[2020-07-19] MEDS ORDERED: Fenofibrate 54 MG TABLET PO SCH (09:00)
[2020-07-19] MEDS ORDERED: Azithromycin 250 MG TABLET PO SCH (09:00)
[2020-07-19] MEDS: Budesonide/Formoterol 80/4.5 1 PUFF INH IH SCH (11:55)
[2020-07-19] MEDS: Budesonide/Formoterol 160/4.5 1 PUFF INH IH SCH (11:57)
[2020-07-19 12:15] LABS: INR 1.9; Prothrombin Time 22.1 Seconds (9.4-12.1)
[2020-07-19 14:53] VITALS: BP 120/70
[2020-07-19] MEDS ORDERED: Warfarin perPT PO PRN (18:00)
[2020-07-19] MEDS ORDERED: *HR* Warfarin 5 MG TABLET PO ONE (18:00)
== END 2020-07-19 17:30 | disposition home health service (06) ==
LOC: EMEROOARM 20:18 → 3BNU 20:18 → SUATTDRO 07-18 01:59 → 3BNU 07-18 02:22
PROVIDERS: ADMIT Family Medicine; ATTEND Internal Medicine

== ENCOUNTER 2020-08-16 18:17 | Inpatient (IN) ==
[2020-08-16] MEDS ORDERED: Ipratropium/Albuterol Neb 3 ML IH ONE (19:01)
[2020-08-16] MEDS ORDERED: methylPREDNISolone 125 MG/2 ML VIAL IVP ONE (19:01)
[2020-08-16] MEDS ORDERED: Ipratropium/Albuterol Neb 3 ML ONE (19:01)
[2020-08-16] MEDS ORDERED: Azithromycin 500 MG in 0.9 % Sodium Chloride 250 ML IVPB ONE (19:01)
[2020-08-16] MEDS ORDERED: cefTRIAXone 1,000 MG in Water for inj. (sterile) 10 ML IVP ONE (19:01)
[2020-08-16] MEDS ORDERED: *HR* LORazepam 2 MG/ML VIAL ONE (19:02)
[2020-08-16] MEDS ORDERED: methylPREDNISolone 125 MG/2 ML VIAL ONE (19:02)
[2020-08-16] MEDS ORDERED: *HR* LORazepam 2 MG/ML VIAL IVP ONE (19:02)
[2020-08-16 19:12] LABS: Basophils % 0.5 %; Eosinophils # 0.3 K/mcL (0.0-0.6); Eosinophils % 4.1 %; Hemoglobin 14.4 g/dL (12.9-16.9); Immature Granulocytes % 0.3 % (0-4); Lymphocytes # 1.7 K/mcL (0.6-4.6); Lymphocytes % 22.7 %; Mean Corpuscular HGB Conc 32.7 g/dL (31.6-35.5); Mean Corpuscular Hemoglobin 30.9 pg (28.0-33.3); Mean Corpuscular Volume 94.4 fL (83.0-100.0); Mean Platelet Volume 10.1 fL (9.4-12.4); Monocytes # 0.9 K/mcL (0.0-1.3); Monocytes % 12.2 %; Neutrophils # 4.6 K/mcL (1.6-8.9); Platelet Count 229 K/mcL (140-400); Red Blood Count 4.66 M/mcL (4.19-5.50); Segmented Neutrophils % 60.2 %; White Blood Count 7.6 K/mcL (4.3-11.1)
[2020-08-16 19:23] LABS: INR 4.1
[2020-08-16 19:25] LABS: Activated Partial Thrombo Time 52.4 Seconds (26.0-36.0)
[2020-08-16 19:35] LABS: Alanine Aminotransferase 27 Units/L (7-52); Albumin/Globulin Ratio 1.4 (1.1-2.2); Alkaline Phosphatase 47 Units/L (34-104); Aspartate Amino Transferase 26 Units/L (13-39); BUN/Creatinine Ratio 12 (6-26); Bilirubin,Direct 0.1 mg/dL (0.0-0.2); Bilirubin,Indirect 0.5 mg/dL (0.0-1.0); Bilirubin,Total 0.6 mg/dL (0.3-1.0); Blood Urea Nitrogen 21 mg/dL (8-23); Calcium 9.3 mg/dL (8.6-10.3); Carbon Dioxide 30 mEq/L (23-29); Chloride 103 mEq/L (98-107); Globulin 2.9 g/dL (2.4-3.5); Glucose 117 mg/dL (70-105); Osmolality,Calculated 298 (280-300); Potassium 3.6 mEq/L (3.5-5.1); Sodium 142 mEq/L (136-145); Total Protein 6.9 g/dL (6.4-8.9); Troponin I < 0.03 ng/mL (< 0.04); eGFR For African Americans 47 (> 60); eGFR For Non-African Americans 39 (> 60)
[2020-08-16 19:39] LABS: ABG Base Excess 5 mEq/L (-2 to 3); ABG HCO3 32 mEq/L (21-27); ABG Oxygen Saturation 96 % (95-98); ABG PCO2 54 mmHg (35-45); ABG PH 7.38 pH Units (7.32-7.45); ABG PO2 83 mmHg (85-104); ABG TCO2 33 mEq/L (20-26)
[2020-08-16 19:43] LABS: Prothrombin Time 45.9 Seconds (9.4-12.1)
[2020-08-16 21:17] LABS: Adenovirus Not Detected (Not Detect); Bordetella Pertussis Not Detected (Not Detect); Chlamydophila pneumoniae Not Detected (Not Detect); Coronavirus 229E Not Detected (Not Detect); Coronavirus HKU1 Not Detected (Not Detect); Coronavirus NL63 Not Detected (Not Detect); Coronavirus OC43 Not Detected (Not Detect); Human Metapneumovirus Not Detected (Not Detect); Human Rhinovirus/Enterovirus Not Detected (Not Detect); Influenza A Subtype 2009 H1 Not Detected (Not Detect); Influenza B Not Detected (Not Detect); Mycoplasma pneumoniae Not Detected (Not Detect); Parainfluenza Virus 1 Not Detected (Not Detect); Parainfluenza Virus 2 Not Detected (Not Detect); Parainfluenza Virus 3 Not Detected (Not Detect); Parainfluenza Virus 4 Not Detected (Not Detect); Respiratory Syncytial Virus Not Detected (Not Detect); SARS-CoV-2 Not Detected (Not Detect)
[2020-08-17] MEDS ORDERED: *HR* HYDROcodone/Acet 5/325 mg TABLET PO PRN (00:36)
[2020-08-17] MEDS ORDERED: Naloxone 0.4 MG/ML INJ IVP PRN (00:36)
[2020-08-17] MEDS ORDERED: Ondansetron 4 MG/2 ML VIAL IVP PRN (00:36)
[2020-08-17] MEDS ORDERED: *HR* OxyCODONE Immed Rel 5 MG TABLET PO PRN (00:36)
[2020-08-17] MEDS ORDERED: *HR* Promethazine 25 MG/ML VIAL IM PRN (00:36)
[2020-08-17] MEDS ORDERED: Acetaminophen 325 MG TABLET PO PRN (00:36)
[2020-08-17] MEDS ORDERED: Melatonin 3 MG TABLET PO PRN (00:36)
[2020-08-17] MEDS ORDERED: Ipratropium/Albuterol Neb 3 ML IH PRN (00:40)
[2020-08-17] MEDS ORDERED: *HR* LORazepam 2 MG/ML VIAL IVP ONE (00:40)
[2020-08-17] MEDS ORDERED: clonazePAM 0.5 MG TABLET PO PRN (00:51)
[2020-08-17] MEDS ORDERED: hydrOXYzine pamoate 25 MG CAPSULE PO PRN (00:52)
[2020-08-17 01:13] LABS: Basophils % 0.1 %; Eosinophils % 0.1 %; Hematocrit 44.4 % (37.5-50.1); Hemoglobin 14.5 g/dL (12.9-16.9); Immature Granulocytes % 0.1 % (0-4); Lymphocytes # 0.8 K/mcL (0.6-4.6); Mean Corpuscular HGB Conc 32.7 g/dL (31.6-35.5); Mean Corpuscular Volume 94.9 fL (83.0-100.0); Mean Platelet Volume 10.4 fL (9.4-12.4); Monocytes # 0.1 K/mcL (0.0-1.3); Monocytes % 1.5 %; Neutrophils # 5.9 K/mcL (1.6-8.9); Platelet Count 220 K/mcL (140-400); Red Blood Count 4.68 M/mcL (4.19-5.50); Red Cell Distribution Width 14.2 % (11.5-14.5); Segmented Neutrophils % 86.2 %; White Blood Count 6.9 K/mcL (4.3-11.1)
[2020-08-17 01:20] LABS: Calcium 9.3 mg/dL (8.6-10.3); Magnesium 1.7 mg/dL (1.6-2.6); Potassium 4.1 mEq/L (3.5-5.1)
[2020-08-17 01:24] LABS: Prothrombin Time 44.4 Seconds (9.4-12.1)
[2020-08-17] MEDS: MethylPREDNISolone 40 MG/ML VIAL IVP SCH ×3 (04:17→21:25)
[2020-08-17] MEDS: Ipratropium/Albuterol Neb 3 ML IH SCH ×6 (04:24→23:28)
[2020-08-17] MEDS: Nicotine 21 MG PATCH.TD24 TD SCH (07:25)
[2020-08-17] MEDS: carvediloL 6.25 MG TABLET PO SCH ×2 (07:26→17:12)
[2020-08-17] MEDS: Budesonide/Formoterol 80/4.5 1 PUFF INH IH SCH ×2 (08:19→20:17)
[2020-08-17] MEDS ORDERED: Dextrose Gel 15 GM/37.5 ML TUBE PO PRN ×2 (12:39)
[2020-08-17] MEDS ORDERED: *HR* Dextrose 50 % in Water (Vial) 50 ML VIAL IVP PRN (12:39)
[2020-08-17] MEDS ORDERED: D5% in Water 1,000 ML IVC PRN (12:39)
[2020-08-17] MEDS: Doxycycline 100 MG CAPSULE PO SCH ×2 (14:14→20:15)
[2020-08-17] MEDS ORDERED: Furosemide 20 MG TABLET PO SCH (17:00)
[2020-08-17] MEDS: Insulin LISPRO 300 UNITS/3 ML VIAL SUBQ SCH (17:13)
[2020-08-17] MEDS ORDERED: Warfarin perPT PO PRN (18:00)
[2020-08-17] MEDS ORDERED: Gabapentin 300 MG CAPSULE PO SCH (21:00)
[2020-08-17] MEDS ORDERED: traZODone 50 MG TABLET PO SCH (21:00)
[2020-08-17] MEDS ORDERED: Insulin DETEMIR 100 UNIT/ML X5UNITS SUBQ SCH (21:00)
[2020-08-18 03:21] LABS: INR 2.5; Prothrombin Time 27.7 Seconds (9.4-12.1)
[2020-08-18] MEDS: MethylPREDNISolone 40 MG/ML VIAL IVP SCH ×2 (03:23→12:46)
[2020-08-18] MEDS: Ipratropium/Albuterol Neb 3 ML IH SCH ×4 (04:09→15:26)
[2020-08-18] MEDS: Budesonide/Formoterol 80/4.5 1 PUFF INH IH SCH (07:22)
[2020-08-18] MEDS ORDERED: Furosemide 20 MG TABLET PO SCH (08:00)
[2020-08-18] MEDS: Insulin LISPRO 300 UNITS/3 ML VIAL SUBQ SCH ×2 (08:35→12:45)
[2020-08-18] MEDS: carvediloL 6.25 MG TABLET PO SCH (08:35)
[2020-08-18] MEDS: Nicotine 21 MG PATCH.TD24 TD SCH (08:35)
[2020-08-18] MEDS: Doxycycline 100 MG CAPSULE PO SCH (08:36)
[2020-08-18] MEDS ORDERED: Finasteride 5 MG TABLET PO SCH (09:00)
[2020-08-18] MEDS ORDERED: Fenofibrate 54 MG TABLET PO SCH (09:00)
[2020-08-18 12:23] LABS: BUN/Creatinine Ratio 22 (6-26); Blood Urea Nitrogen 26 mg/dL (8-23); Calcium 9.3 mg/dL (8.6-10.3); Carbon Dioxide 31 mEq/L (23-29); Chloride 102 mEq/L (98-107); Glucose 145 mg/dL (70-105); Osmolality,Calculated 291 (280-300); Potassium 4.3 mEq/L (3.5-5.1); Sodium 137 mEq/L (136-145); eGFR For African Americans > 60 (> 60); eGFR For Non-African Americans > 60 (> 60)
[2020-08-18 12:41] VITALS: BP 122/67
[2020-08-18] MEDS ORDERED: *HR* Warfarin 5 MG TABLET PO ONE (18:00)
== END 2020-08-18 16:44 | disposition home health service (06) | DRG 190 ==
LOC: EMEROOARM 18:17 → 2NENU 18:17 → SUATTDRO 08-17 13:07
PROVIDERS: ADMIT Family Medicine; ATTEND Family Medicine

== ENCOUNTER 2020-09-17 09:48 | Observation (INO) ==
[2020-09-17 10:28] LABS: Basophils % 0.5 %; Eosinophils # 0.4 K/mcL (0.0-0.6); Hematocrit 43.3 % (37.5-50.1); Hemoglobin 14.3 g/dL (12.9-16.9); Immature Granulocytes % 0.2 % (0-4); Lymphocytes # 1.7 K/mcL (0.6-4.6); Lymphocytes % 20.8 %; Mean Corpuscular Hemoglobin 30.8 pg (28.0-33.3); Mean Corpuscular Volume 93.1 fL (83.0-100.0); Mean Platelet Volume 9.6 fL (9.4-12.4); Monocytes % 12.4 %; Neutrophils # 5.1 K/mcL (1.6-8.9); Platelet Count 229 K/mcL (140-400); Red Blood Count 4.65 M/mcL (4.19-5.50); Red Cell Distribution Width 14.3 % (11.5-14.5); Segmented Neutrophils % 61.1 %; White Blood Count 8.3 K/mcL (4.3-11.1)
[2020-09-17 10:50] LABS: BUN/Creatinine Ratio 13 (6-26); Blood Urea Nitrogen 17 mg/dL (8-23); Calcium 9.3 mg/dL (8.6-10.3); Carbon Dioxide 31 mEq/L (23-29); Chloride 99 mEq/L (98-107); Glucose 92 mg/dL (70-105); INR 2.7; Magnesium 1.6 mg/dL (1.6-2.6); Osmolality,Calculated 285 (280-300); Phosphorous 3.3 mg/dL (2.7-4.5); Potassium 3.7 mEq/L (3.5-5.1); Prothrombin Time 30.7 Seconds (9.4-12.1); Sodium 137 mEq/L (136-145); Troponin I < 0.03 ng/mL (< 0.04); eGFR For African Americans > 60 (> 60); eGFR For Non-African Americans 55 (> 60)
[2020-09-17 11:47] LABS: Bilirubin,Urine Negative (Negative); Blood,Urine Small (Negative); Clarity,Urine Clear (Clear); Color,Urine Colorless (Yellow); Glucose,Urine (UA) Normal (Normal); Hyaline Casts,Urine Few per lpf (None Seen); Ketones,Urine Negative (Negative); Leukocyte Esterase,Urine Moderate (Negative); Mucus,Urine Few per lpf (None-Few); Nitrite,Urine Negative (Negative); PH,Urine 6.5 pH Units (5.0-8.0); Protein,Urine Negative (Neg-Trace); RBC,Urine 15-30 per hpf (0-3); Squamous Epithelial Cell,Urine Few per hpf (None-Few); Urobilinogen,Urine Normal (Normal); WBC,Urine 50-100 per hpf (0-3)
[2020-09-17] MEDS ORDERED: cefTRIAXone 1,000 MG in Water for inj. (sterile) 10 ML IVP ONE (11:49)
[2020-09-17] MEDS ORDERED: Melatonin 3 MG TABLET PO PRN (14:01)
[2020-09-17] MEDS ORDERED: Acetaminophen 325 MG TABLET PO PRN (14:01)
[2020-09-17] MEDS ORDERED: Ondansetron 4 MG/2 ML VIAL IVP PRN (14:01)
[2020-09-17] MEDS ORDERED: *HR* Promethazine 25 MG/ML VIAL IM PRN (14:01)
[2020-09-17] MEDS ORDERED: Naloxone 0.4 MG/ML INJ IVP PRN (14:01)
[2020-09-17] MEDS ORDERED: diazePAM 10 MG/2 ML SYRINGE IVP ONE (15:03)
[2020-09-17] MEDS: carvediloL 6.25 MG TABLET PO SCH (16:31)
[2020-09-17] MEDS: Ringers Solution, Lactated 1,000 ML IVC SCH (16:31)
[2020-09-17] MEDS: Budesonide/Formoterol 80/4.5 1 PUFF INH IH SCH (20:23)
[2020-09-18] MEDS: Ringers Solution, Lactated 1,000 ML IVC SCH (03:09)
[2020-09-18] MEDS: Budesonide/Formoterol 80/4.5 1 PUFF INH IH SCH (07:26)
[2020-09-18 07:56] VITALS: BP 136/95
[2020-09-18] MEDS: carvediloL 6.25 MG TABLET PO SCH (08:14)
[2020-09-18 08:46] LABS: INR 2.4; Prothrombin Time 27.5 Seconds (9.4-12.1)
[2020-09-18 08:50] LABS: Hematocrit 44.1 % (37.5-50.1); Hemoglobin 14.6 g/dL (12.9-16.9); Mean Corpuscular HGB Conc 33.1 g/dL (31.6-35.5); Mean Corpuscular Hemoglobin 31.1 pg (28.0-33.3); Mean Platelet Volume 9.4 fL (9.4-12.4); Platelet Count 216 K/mcL (140-400); Red Blood Count 4.69 M/mcL (4.19-5.50); Red Cell Distribution Width 14.2 % (11.5-14.5); White Blood Count 5.2 K/mcL (4.3-11.1)
[2020-09-18 08:59] LABS: BUN/Creatinine Ratio 18 (6-26); Blood Urea Nitrogen 22 mg/dL (8-23); Calcium 9.3 mg/dL (8.6-10.3); Carbon Dioxide 31 mEq/L (23-29); Chloride 101 mEq/L (98-107); Glucose 81 mg/dL (70-105); Magnesium 1.9 mg/dL (1.6-2.6); Osmolality,Calculated 286 (280-300); Potassium 3.8 mEq/L (3.5-5.1); Sodium 137 mEq/L (136-145); eGFR For African Americans > 60 (> 60); eGFR For Non-African Americans 59 (> 60)
[2020-09-18 09:14] LABS: Eosinophils # 0.2 K/mcL (0.0-0.6); Lymphocytes # 0.9 K/mcL (0.6-4.6); Monocytes # 0.3 K/mcL (0.0-1.3); Neutrophils # 3.7 K/mcL (1.6-8.9); Platelet Estimate Normal (Normal)
[2020-09-18] MEDS ORDERED: Nicotine 21 MG PATCH.TD24 TD ONE (10:55)
== END 2020-09-18 12:30 | disposition home or self-care (01) ==
LOC: EMEROOARM 09:48 → 3ANU 09:48 → SUATTDRO 13:52 → 3ANU 14:35
PROVIDERS: ADMIT Internal Medicine; ATTEND Pharmacist

== ENCOUNTER 2020-10-08 14:08 | Inpatient (IN) ==
[2020-10-08] MEDS ORDERED: Ipratropium/Albuterol Neb 3 ML IH ONE (14:29)
[2020-10-08] MEDS ORDERED: methylPREDNISolone 125 MG/2 ML VIAL IVP ONE (14:30)
[2020-10-08 14:55] LABS: Basophils # 0.1 K/mcL (0.0-0.2); Basophils % 1.2 %; Eosinophils # 0.3 K/mcL (0.0-0.6); Eosinophils % 3.3 %; Hematocrit 50.2 % (37.5-50.1); Hemoglobin 16.3 g/dL (12.9-16.9); Immature Granulocytes % 0.3 % (0-4); Lymphocytes # 1.7 K/mcL (0.6-4.6); Lymphocytes % 22.7 %; Mean Corpuscular HGB Conc 32.5 g/dL (31.6-35.5); Mean Corpuscular Hemoglobin 30.1 pg (28.0-33.3); Mean Corpuscular Volume 92.8 fL (83.0-100.0); Mean Platelet Volume 10.1 fL (9.4-12.4); Monocytes # 1.1 K/mcL (0.0-1.3); Monocytes % 15.1 %; Neutrophils # 4.3 K/mcL (1.6-8.9); Platelet Count 269 K/mcL (140-400); Red Blood Count 5.41 M/mcL (4.19-5.50); Red Cell Distribution Width 13.4 % (11.5-14.5); Segmented Neutrophils % 57.4 %; White Blood Count 7.5 K/mcL (4.3-11.1)
[2020-10-08 15:10] LABS: INR 2.1; Prothrombin Time 24.1 Seconds (9.4-12.1)
[2020-10-08 15:13] LABS: Activated Partial Thrombo Time 44.1 Seconds (26.0-36.0)
[2020-10-08 15:19] LABS: BUN/Creatinine Ratio 13 (6-26); Blood Urea Nitrogen 17 mg/dL (8-23); Calcium 9.8 mg/dL (8.6-10.3); Carbon Dioxide 33 mEq/L (23-29); Chloride 98 mEq/L (98-107); Glucose 92 mg/dL (70-105); Osmolality,Calculated 293 (280-300); Potassium 3.8 mEq/L (3.5-5.1); Sodium 141 mEq/L (136-145); Troponin I < 0.03 ng/mL (< 0.04); eGFR For African Americans > 60 (> 60); eGFR For Non-African Americans 53 (> 60)
[2020-10-08 16:16] LABS: Albumin 4.2 g/dL (3.5-5.7); Albumin/Globulin Ratio 1.3 (1.1-2.2); Bilirubin,Direct 0.2 mg/dL (0.0-0.2); Bilirubin,Indirect 0.7 mg/dL (0.0-1.0); Bilirubin,Total 0.9 mg/dL (0.3-1.0); Globulin 3.2 g/dL (2.4-3.5); Total Protein 7.4 g/dL (6.4-8.9)
[2020-10-08] MEDS ORDERED: Mag Hydrox/Al Hydrox/Simeth 30 ML UDC PO STA (16:22)
[2020-10-08] MEDS ORDERED: Morphine Sulfate 2 MG/ML SYRINGE IVP STA (16:42)
[2020-10-08] MEDS ORDERED: Ondansetron 4 MG/2 ML VIAL IVP PRN (17:18)
[2020-10-08] MEDS ORDERED: Naloxone 0.4 MG/ML INJ IVP PRN (17:18)
[2020-10-08 17:44] LABS: Bilirubin,Urine Negative (Negative); Blood,Urine Negative (Negative); Clarity,Urine Clear (Clear); Color,Urine Light-Yellow (Yellow); Glucose,Urine (UA) Normal (Normal); Ketones,Urine Negative (Negative); Leukocyte Esterase,Urine Negative (Negative); Nitrite,Urine Negative (Negative); PH,Urine 6.5 pH Units (5.0-8.0); Protein,Urine Negative (Neg-Trace); Specific Gravity,Urine 1.014 (1.010-1.025); Urobilinogen,Urine Normal (Normal)
[2020-10-08] MEDS ORDERED: Dextrose Gel 15 GM/37.5 ML TUBE PO PRN ×2 (17:58)
[2020-10-08] MEDS ORDERED: *HR* Dextrose 50 % in Water (Vial) 50 ML VIAL IVP PRN (17:58)
[2020-10-08] MEDS ORDERED: D5% in Water 1,000 ML IVC PRN (17:58)
[2020-10-08] MEDS ORDERED: Warfarin perPT PO PRN (18:00)
[2020-10-08 19:30] LABS: Adenovirus Not Detected (Not Detect); Bordetella Pertussis Not Detected (Not Detect); Chlamydophila pneumoniae Not Detected (Not Detect); Coronavirus 229E Not Detected (Not Detect); Coronavirus HKU1 Not Detected (Not Detect); Coronavirus NL63 Not Detected (Not Detect); Coronavirus OC43 Not Detected (Not Detect); Human Metapneumovirus Not Detected (Not Detect); Human Rhinovirus/Enterovirus Not Detected (Not Detect); Influenza A Subtype 2009 H1 Not Detected (Not Detect); Influenza B Not Detected (Not Detect); Mycoplasma pneumoniae Not Detected (Not Detect); Parainfluenza Virus 1 Not Detected (Not Detect); Parainfluenza Virus 2 Not Detected (Not Detect); Parainfluenza Virus 3 Not Detected (Not Detect); Parainfluenza Virus 4 Not Detected (Not Detect); Respiratory Syncytial Virus Not Detected (Not Detect); SARS-CoV-2 Not Detected (Not Detect)
[2020-10-08] MEDS ORDERED: *HR* Warfarin 5 MG TABLET PO ONE (20:16)
[2020-10-08] MEDS: Ipratropium/Albuterol Neb 3 ML IH SCH ×2 (20:29→23:58)
[2020-10-08] MEDS: Gabapentin 300 MG CAPSULE PO SCH (21:23)
[2020-10-08] MEDS: carvediloL 6.25 MG TABLET PO SCH (21:24)
[2020-10-08] MEDS: clonazePAM 0.5 MG TABLET PO SCH (21:24)
[2020-10-08] MEDS: traZODone 50 MG TABLET PO SCH (21:24)
[2020-10-08] MEDS: Doxycycline 100 MG in 0.9 % Sodium Chloride Mini Bag 100 ML IVPB SCH (21:25)
[2020-10-08] MEDS: MethylPREDNISolone 40 MG/ML VIAL IVP SCH (21:25)
[2020-10-08] MEDS: Furosemide 20 MG/2 ML VIAL IVP SCH (21:25)
[2020-10-08] MEDS: Budesonide/Formoterol 160/4.5 1 PUFF INH IH SCH (23:58)
[2020-10-09 02:37] LABS: Basophils % 0.2 %; Hematocrit 47.7 % (37.5-50.1); Hemoglobin 15.7 g/dL (12.9-16.9); Immature Granulocytes % 0.2 % (0-4); Lymphocytes # 0.8 K/mcL (0.6-4.6); Lymphocytes % 14.7 %; Mean Corpuscular HGB Conc 32.9 g/dL (31.6-35.5); Mean Corpuscular Volume 91.2 fL (83.0-100.0); Mean Platelet Volume 10.4 fL (9.4-12.4); Monocytes # 0.1 K/mcL (0.0-1.3); Monocytes % 1.1 %; Neutrophils # 4.8 K/mcL (1.6-8.9); Platelet Count 242 K/mcL (140-400); Red Blood Count 5.23 M/mcL (4.19-5.50); Red Cell Distribution Width 13.3 % (11.5-14.5); Segmented Neutrophils % 83.8 %; White Blood Count 5.7 K/mcL (4.3-11.1)
[2020-10-09 02:47] LABS: INR 1.9; Prothrombin Time 21.9 Seconds (9.4-12.1)
[2020-10-09 02:56] LABS: Calcium 9.6 mg/dL (8.6-10.3); Phosphorous 2.9 mg/dL (2.7-4.5)
[2020-10-09] MEDS: Ipratropium/Albuterol Neb 3 ML IH SCH ×6 (03:45→23:13)
[2020-10-09] MEDS: Doxycycline 100 MG in 0.9 % Sodium Chloride Mini Bag 100 ML IVPB SCH ×2 (05:37→17:34)
[2020-10-09] MEDS: MethylPREDNISolone 40 MG/ML VIAL IVP SCH ×2 (05:38→17:35)
[2020-10-09] MEDS: *HR* HYDROcodone/Acet 5/325 mg TABLET PO PRN (05:38)
[2020-10-09] MEDS: Budesonide/Formoterol 160/4.5 1 PUFF INH IH SCH ×2 (07:47→19:27)
[2020-10-09] MEDS: carvediloL 6.25 MG TABLET PO SCH ×2 (09:26→20:20)
[2020-10-09] MEDS: Furosemide 20 MG/2 ML VIAL IVP SCH ×2 (09:27→20:19)
[2020-10-09] MEDS: Finasteride 5 MG TABLET PO SCH (09:27)
[2020-10-09] MEDS: Nicotine 21 MG PATCH.TD24 TD SCH (09:28)
[2020-10-09] MEDS: Insulin LISPRO 300 UNITS/3 ML VIAL SUBQ SCH ×3 (09:32→17:35)
[2020-10-09] MEDS ORDERED: *HR* Warfarin 5 MG TABLET PO ONE (18:00)
[2020-10-09] MEDS: traZODone 50 MG TABLET PO SCH (20:20)
[2020-10-09] MEDS: clonazePAM 0.5 MG TABLET PO SCH (20:20)
[2020-10-09] MEDS: Gabapentin 300 MG CAPSULE PO SCH (20:21)
[2020-10-10] MEDS: Ipratropium/Albuterol Neb 3 ML IH SCH ×6 (03:36→23:22)
[2020-10-10] MEDS: *HR* HYDROcodone/Acet 5/325 mg TABLET PO PRN ×2 (03:44→20:29)
[2020-10-10 05:41] LABS: INR 2.5; Prothrombin Time 28.6 Seconds (9.4-12.1)
[2020-10-10] MEDS: MethylPREDNISolone 40 MG/ML VIAL IVP SCH ×2 (06:01→17:37)
[2020-10-10] MEDS: Doxycycline 100 MG in 0.9 % Sodium Chloride Mini Bag 100 ML IVPB SCH ×2 (06:04→17:37)
[2020-10-10] MEDS: Budesonide/Formoterol 160/4.5 1 PUFF INH IH SCH ×2 (07:40→20:10)
[2020-10-10] MEDS ORDERED: 0.9 % Sodium Chloride 1,000 ML IVC SCH (07:45)
[2020-10-10] MEDS: Nicotine 21 MG PATCH.TD24 TD SCH (08:50)
[2020-10-10] MEDS: Furosemide 20 MG/2 ML VIAL IVP SCH ×2 (08:50→20:30)
[2020-10-10 08:51] LABS: Basophils % 0.1 %; Hematocrit 45.9 % (37.5-50.1); Hemoglobin 15.2 g/dL (12.9-16.9); Immature Granulocytes % 1.7 % (0-4); Lymphocytes % 4.9 %; Mean Corpuscular HGB Conc 33.1 g/dL (31.6-35.5); Mean Corpuscular Hemoglobin 30.9 pg (28.0-33.3); Mean Corpuscular Volume 93.3 fL (83.0-100.0); Mean Platelet Volume 10.2 fL (9.4-12.4); Monocytes # 0.8 K/mcL (0.0-1.3); Monocytes % 3.9 %; Platelet Count 225 K/mcL (140-400); Red Blood Count 4.92 M/mcL (4.19-5.50); Red Cell Distribution Width 13.6 % (11.5-14.5); Segmented Neutrophils % 89.4 %; White Blood Count 20.1 K/mcL (4.3-11.1)
[2020-10-10] MEDS: carvediloL 6.25 MG TABLET PO SCH ×2 (08:51→20:28)
[2020-10-10] MEDS: Finasteride 5 MG TABLET PO SCH (08:51)
[2020-10-10] MEDS: Insulin LISPRO 300 UNITS/3 ML VIAL SUBQ SCH ×3 (08:51→17:37)
[2020-10-10 09:23] LABS: Calcium 9.5 mg/dL (8.6-10.3)
[2020-10-10] MEDS ORDERED: *HR* Warfarin 2.5 MG TABLET PO ONE (18:00)
[2020-10-10] MEDS: Gabapentin 300 MG CAPSULE PO SCH (20:27)
[2020-10-10] MEDS: traZODone 50 MG TABLET PO SCH (20:28)
[2020-10-10] MEDS: clonazePAM 0.5 MG TABLET PO SCH (20:29)
[2020-10-11] MEDS: Ipratropium/Albuterol Neb 3 ML IH SCH ×3 (03:36→11:25)
[2020-10-11 04:47] LABS: INR 2.2
[2020-10-11] MEDS: MethylPREDNISolone 40 MG/ML VIAL IVP SCH (05:29)
[2020-10-11] MEDS: Doxycycline 100 MG in 0.9 % Sodium Chloride Mini Bag 100 ML IVPB SCH (05:39)
[2020-10-11 07:11] VITALS: BP 125/72
[2020-10-11] MEDS: Budesonide/Formoterol 160/4.5 1 PUFF INH IH SCH (07:13)
[2020-10-11] MEDS: Finasteride 5 MG TABLET PO SCH (07:27)
[2020-10-11] MEDS: Furosemide 20 MG/2 ML VIAL IVP SCH (07:27)
[2020-10-11] MEDS: Insulin LISPRO 300 UNITS/3 ML VIAL SUBQ SCH (07:27)
[2020-10-11] MEDS: Nicotine 21 MG PATCH.TD24 TD SCH (07:28)
[2020-10-11] MEDS: carvediloL 6.25 MG TABLET PO SCH (07:28)
[2020-10-11 09:43] LABS: Basophils % 0.1 %; Eosinophils % 0.1 %; Hematocrit 43.7 % (37.5-50.1); Hemoglobin 14.4 g/dL (12.9-16.9); Immature Granulocytes % 1.2 % (0-4); Lymphocytes % 7.2 %; Mean Corpuscular Hemoglobin 30.8 pg (28.0-33.3); Mean Corpuscular Volume 93.6 fL (83.0-100.0); Mean Platelet Volume 10.6 fL (9.4-12.4); Monocytes # 0.3 K/mcL (0.0-1.3); Monocytes % 2.3 %; Neutrophils # 12.4 K/mcL (1.6-8.9); Platelet Count 167 K/mcL (140-400); Red Blood Count 4.67 M/mcL (4.19-5.50); Red Cell Distribution Width 13.7 % (11.5-14.5); Segmented Neutrophils % 89.1 %; White Blood Count 13.9 K/mcL (4.3-11.1)
[2020-10-11 10:08] LABS: Carbon Dioxide 27 mEq/L (23-29); Chloride 99 mEq/L (98-107); Glucose 157 mg/dL (70-105); Potassium 4.9 mEq/L (3.5-5.1); Sodium 138 mEq/L (136-145)
[2020-10-11 10:21] LABS: BUN/Creatinine Ratio 30 (6-26); Blood Urea Nitrogen 41 mg/dL (8-23); Calcium 8.9 mg/dL (8.6-10.3); Osmolality,Calculated 299 (280-300); eGFR For African Americans > 60 (> 60); eGFR For Non-African Americans 52 (> 60)
[2020-10-11] MEDS ORDERED: *HR* Warfarin 5 MG TABLET PO ONE (18:00)
== END 2020-10-11 11:57 | disposition home or self-care (01) | DRG 189 ==
LOC: EMEROOARM 14:08 → 3BNU 14:08
PROVIDERS: ADMIT Internal Medicine; ATTEND Internal Medicine

== ENCOUNTER 2020-12-01 16:26 | Inpatient (IN) ==
[2020-12-01] MEDS ORDERED: methylPREDNISolone 125 MG/2 ML VIAL IVP ONE ×2 (17:10→17:18)
[2020-12-01] MEDS ORDERED: Ipratropium/Albuterol Neb 3 ML IH ONE ×2 (17:10→17:18)
[2020-12-01 17:30] LABS: Basophils % 0.5 %; Eosinophils # 0.3 K/mcL (0.0-0.6); Eosinophils % 4.1 %; Hematocrit 46.7 % (37.5-50.1); Hemoglobin 15.9 g/dL (12.9-16.9); Immature Granulocytes % 0.4 % (0-4); Lymphocytes # 1.7 K/mcL (0.6-4.6); Lymphocytes % 21.6 %; Mean Corpuscular Hemoglobin 31.3 pg (28.0-33.3); Mean Corpuscular Volume 91.9 fL (83.0-100.0); Mean Platelet Volume 10.7 fL (9.4-12.4); Monocytes % 13.2 %; Neutrophils # 4.7 K/mcL (1.6-8.9); Platelet Count 225 K/mcL (140-400); Red Blood Count 5.08 M/mcL (4.19-5.50); Red Cell Distribution Width 13.2 % (11.5-14.5); Segmented Neutrophils % 60.2 %; White Blood Count 7.7 K/mcL (4.3-11.1)
[2020-12-01 17:37] LABS: INR 2.2; Prothrombin Time 24.7 Seconds (9.4-12.1)
[2020-12-01 17:45] LABS: BUN/Creatinine Ratio 19 (6-26); Blood Urea Nitrogen 23 mg/dL (8-23); Calcium 9.6 mg/dL (8.6-10.3); Carbon Dioxide 32 mEq/L (23-29); Chloride 100 mEq/L (98-107); Glucose 77 mg/dL (70-105); Osmolality,Calculated 290 (280-300); Potassium 3.7 mEq/L (3.5-5.1); Sodium 139 mEq/L (136-145); eGFR For African Americans > 60 (> 60); eGFR For Non-African Americans 59 (> 60)
[2020-12-01 17:52] LABS: Troponin I < 0.03 ng/mL (< 0.04)
[2020-12-01 20:31] LABS: Adenovirus Not Detected (Not Detect); Bordetella Pertussis Not Detected (Not Detect); Chlamydophila pneumoniae Not Detected (Not Detect); Coronavirus 229E Not Detected (Not Detect); Coronavirus HKU1 Not Detected (Not Detect); Coronavirus NL63 Not Detected (Not Detect); Coronavirus OC43 Not Detected (Not Detect); Human Metapneumovirus Not Detected (Not Detect); Human Rhinovirus/Enterovirus Not Detected (Not Detect); Influenza A Subtype 2009 H1 Not Detected (Not Detect); Influenza B Not Detected (Not Detect); Mycoplasma pneumoniae Not Detected (Not Detect); Parainfluenza Virus 1 Not Detected (Not Detect); Parainfluenza Virus 2 Not Detected (Not Detect); Parainfluenza Virus 3 Not Detected (Not Detect); Parainfluenza Virus 4 Not Detected (Not Detect); Respiratory Syncytial Virus Not Detected (Not Detect); SARS-CoV-2 Not Detected (Not Detect)
[2020-12-01] MEDS ORDERED: Naloxone 0.4 MG/ML INJ IVP PRN (22:35)
[2020-12-01] MEDS ORDERED: Ondansetron 4 MG/2 ML VIAL IVP PRN (22:35)
[2020-12-01] MEDS ORDERED: Melatonin 3 MG TABLET PO PRN (22:35)
[2020-12-01] MEDS ORDERED: Albuterol 2.5 MG/3 ML NEBULIZER IH PRN (22:57)
[2020-12-02] MEDS: Azithromycin 500 MG in 0.9 % Sodium Chloride 250 ML IVPB SCH ×2 (00:28→22:50)
[2020-12-02] MEDS: Acetaminophen 325 MG TABLET PO PRN ×2 (01:25→22:58)
[2020-12-02 01:29] LABS: Basophils % 0.2 %; Eosinophils % 0.2 %; Hematocrit 46.1 % (37.5-50.1); Hemoglobin 15.6 g/dL (12.9-16.9); Immature Granulocytes % 0.3 % (0-4); Lymphocytes # 0.9 K/mcL (0.6-4.6); Lymphocytes % 14.4 %; Mean Corpuscular HGB Conc 33.8 g/dL (31.6-35.5); Mean Corpuscular Hemoglobin 30.7 pg (28.0-33.3); Mean Corpuscular Volume 90.7 fL (83.0-100.0); Mean Platelet Volume 10.9 fL (9.4-12.4); Monocytes # 0.1 K/mcL (0.0-1.3); Monocytes % 0.8 %; Neutrophils # 5.3 K/mcL (1.6-8.9); Platelet Count 204 K/mcL (140-400); Red Blood Count 5.08 M/mcL (4.19-5.50); Red Cell Distribution Width 13.2 % (11.5-14.5); Segmented Neutrophils % 84.1 %; White Blood Count 6.3 K/mcL (4.3-11.1)
[2020-12-02 01:35] LABS: INR 2.1; Prothrombin Time 23.9 Seconds (9.4-12.1)
[2020-12-02 01:44] LABS: Alanine Aminotransferase 18 Units/L (7-52); Albumin/Globulin Ratio 1.4 (1.1-2.2); Alkaline Phosphatase 54 Units/L (34-104); Aspartate Amino Transferase 25 Units/L (13-39); BUN/Creatinine Ratio 20 (6-26); Bilirubin,Total 0.7 mg/dL (0.3-1.0); Blood Urea Nitrogen 24 mg/dL (8-23); Calcium 9.3 mg/dL (8.6-10.3); Carbon Dioxide 28 mEq/L (23-29); Chloride 102 mEq/L (98-107); Globulin 2.9 g/dL (2.4-3.5); Glucose 217 mg/dL (70-105); Magnesium 1.7 mg/dL (1.6-2.6); Osmolality,Calculated 299 (280-300); Phosphorous 3.1 mg/dL (2.7-4.5); Sodium 139 mEq/L (136-145); Total Protein 6.9 g/dL (6.4-8.9); eGFR For African Americans > 60 (> 60); eGFR For Non-African Americans > 60 (> 60)
[2020-12-02] MEDS ORDERED: *HR* Dextrose 50 % in Water (Vial) 50 ML VIAL IVP PRN (03:13)
[2020-12-02] MEDS ORDERED: Dextrose Gel 15 GM/37.5 ML TUBE PO PRN ×2 (03:13)
[2020-12-02] MEDS ORDERED: D5% in Water 1,000 ML IVC PRN (03:13)
[2020-12-02] MEDS: Ipratropium/Albuterol Neb 3 ML IH SCH ×5 (03:16→22:04)
[2020-12-02 03:41] LABS: Estimated Average Glucose 128 mg/dl; Hemoglobin A1C 6.1 %
[2020-12-02] MEDS ORDERED: hydrOXYzine pamoate 25 MG CAPSULE PO PRN (08:28)
[2020-12-02] MEDS: Fenofibrate 54 MG TABLET PO SCH (09:31)
[2020-12-02] MEDS: Finasteride 5 MG TABLET PO SCH (09:31)
[2020-12-02] MEDS: predniSONE 20 MG TABLET PO SCH (09:31)
[2020-12-02] MEDS: Furosemide 20 MG TABLET PO SCH ×2 (09:37→17:44)
[2020-12-02] MEDS: carvediloL 25 MG TABLET PO SCH ×2 (09:37→17:45)
[2020-12-02] MEDS: Insulin LISPRO 300 UNITS/3 ML VIAL SUBQ SCH ×3 (09:38→16:54)
[2020-12-02] MEDS ORDERED: Warfarin perPT PO PRN (18:00)
[2020-12-02] MEDS ORDERED: *HR* Warfarin 7.5 MG TABLET PO ONE (18:00)
[2020-12-02] MEDS ORDERED: Insulin LISPRO 300 UNITS/3 ML VIAL SUBQ SCH (21:00)
[2020-12-02] MEDS ORDERED: Gabapentin 300 MG CAPSULE PO SCH (21:00)
[2020-12-03 01:04] LABS: INR 1.6; Prothrombin Time 17.8 Seconds (9.4-12.1)
[2020-12-03 01:19] LABS: BUN/Creatinine Ratio 26 (6-26); Blood Urea Nitrogen 32 mg/dL (8-23); Calcium 9.1 mg/dL (8.6-10.3); Carbon Dioxide 29 mEq/L (23-29); Chloride 102 mEq/L (98-107); Glucose 127 mg/dL (70-105); Magnesium 1.9 mg/dL (1.6-2.6); Osmolality,Calculated 294 (280-300); Phosphorous 2.8 mg/dL (2.7-4.5); Potassium 3.9 mEq/L (3.5-5.1); Sodium 138 mEq/L (136-145); eGFR For African Americans > 60 (> 60); eGFR For Non-African Americans 58 (> 60)
[2020-12-03] MEDS: Ipratropium/Albuterol Neb 3 ML IH SCH ×2 (04:06→10:24)
[2020-12-03] MEDS: Insulin LISPRO 300 UNITS/3 ML VIAL SUBQ SCH (08:19)
[2020-12-03] MEDS: Furosemide 20 MG TABLET PO SCH (08:20)
[2020-12-03] MEDS: predniSONE 20 MG TABLET PO SCH (08:20)
[2020-12-03] MEDS: Finasteride 5 MG TABLET PO SCH (08:20)
[2020-12-03] MEDS: carvediloL 25 MG TABLET PO SCH (08:20)
[2020-12-03] MEDS: Fenofibrate 54 MG TABLET PO SCH (08:20)
[2020-12-03 08:30] VITALS: BP 135/87; PULSE 95; TEMP 97.8
[2020-12-03 10:27] VITALS: O2SAT 98
[2020-12-03] MEDS ORDERED: *HR* Warfarin 5 MG TABLET PO ONE (18:00)
== END 2020-12-03 12:01 | disposition home or self-care (01) | DRG 190 ==
LOC: 3NENU 16:26 → EMEROOARM 16:26 → SUATTDRO 20:37 → 3NENU 21:30
PROVIDERS: ADMIT Internal Medicine; ATTEND Internal Medicine

== ENCOUNTER 2021-01-24 15:08 | Inpatient (IN) ==
[2021-01-24 16:06] LABS: Basophils % 0.5 %; Eosinophils # 0.3 K/mcL (0.0-0.6); Eosinophils % 3.4 %; Hematocrit 45.3 % (37.5-50.1); Immature Granulocytes % 0.1 % (0-4); Lymphocytes # 1.6 K/mcL (0.6-4.6); Lymphocytes % 21.7 %; Mean Corpuscular HGB Conc 33.1 g/dL (31.6-35.5); Mean Corpuscular Hemoglobin 30.9 pg (28.0-33.3); Mean Corpuscular Volume 93.4 fL (83.0-100.0); Mean Platelet Volume 9.7 fL (9.4-12.4); Monocytes # 0.9 K/mcL (0.0-1.3); Monocytes % 11.7 %; Neutrophils # 4.6 K/mcL (1.6-8.9); Platelet Count 229 K/mcL (140-400); Red Blood Count 4.85 M/mcL (4.19-5.50); Red Cell Distribution Width 14.3 % (11.5-14.5); Segmented Neutrophils % 62.6 %; White Blood Count 7.4 K/mcL (4.3-11.1)
[2021-01-24 16:39] LABS: INR 2.4; Prothrombin Time 26.4 Seconds (9.4-12.1)
[2021-01-24] MEDS ORDERED: 0.9 % Sodium Chloride 1,000 ML IV ONE (17:41)
[2021-01-24 17:57] LABS: Alanine Aminotransferase 17 Units/L (7-52); Albumin 4.2 g/dL (3.5-5.7); Albumin/Globulin Ratio 1.5 (1.1-2.2); Alkaline Phosphatase 58 Units/L (34-104); Aspartate Amino Transferase 25 Units/L (13-39); BUN/Creatinine Ratio 16 (6-26); Bilirubin,Direct 0.1 mg/dL (0.0-0.2); Bilirubin,Indirect 0.5 mg/dL (0.0-1.0); Bilirubin,Total 0.6 mg/dL (0.3-1.0); Blood Urea Nitrogen 21 mg/dL (8-23); Calcium 9.4 mg/dL (8.6-10.3); Carbon Dioxide 29 mEq/L (23-29); Chloride 95 mEq/L (98-107); Globulin 2.8 g/dL (2.4-3.5); Glucose 69 mg/dL (70-105); Magnesium 1.9 mg/dL (1.6-2.6); Osmolality,Calculated 281 (280-300); Potassium 3.7 mEq/L (3.5-5.1); Sodium 135 mEq/L (136-145); Troponin I < 0.03 ng/mL (< 0.04); eGFR For African Americans > 60 (> 60); eGFR For Non-African Americans 54 (> 60)
[2021-01-24 18:30] LABS: Bilirubin,Urine Negative (Negative); Blood,Urine Negative (Negative); Clarity,Urine Clear (Clear); Color,Urine Light-Yellow (Yellow); Glucose,Urine (UA) Normal (Normal); Ketones,Urine Negative (Negative); Leukocyte Esterase,Urine Negative (Negative); Nitrite,Urine Positive (Negative); PH,Urine 6.5 pH Units (5.0-8.0); Protein,Urine Trace mg/dL (Neg-Trace); RBC,Urine 0-3 per hpf (0-3); Specific Gravity,Urine 1.018 (1.010-1.025); Urobilinogen,Urine Normal (Normal); WBC,Urine 0-3 per hpf (0-3)
[2021-01-24] MEDS ORDERED: cefTRIAXone 1,000 MG in Water for inj. (sterile) 10 ML IVP ONE (19:38)
[2021-01-24] MEDS ORDERED: Ondansetron 4 MG/2 ML VIAL IVP PRN (20:32)
[2021-01-24] MEDS ORDERED: Naloxone 0.4 MG/ML INJ IVP PRN (20:32)
[2021-01-24] MEDS: Acetaminophen 325 MG TABLET PO PRN (20:45)
[2021-01-24] MEDS ORDERED: ALPRAZolam 1 MG TABLET PO ONE (21:41)
[2021-01-24] MEDS: Nicotine 14 MG PATCH.TD24 TD SCH (22:26)
[2021-01-24] MEDS: Ipratropium/Albuterol Neb 3 ML IH PRN (22:52)
[2021-01-25] MEDS: Acetaminophen 325 MG TABLET PO PRN ×3 (05:07→21:07)
[2021-01-25 07:54] LABS: Prothrombin Time 22.6 Seconds (9.4-12.1)
[2021-01-25 07:58] LABS: Basophils % 0.6 %; Eosinophils # 0.3 K/mcL (0.0-0.6); Eosinophils % 3.7 %; Hematocrit 47.3 % (37.5-50.1); Hemoglobin 15.3 g/dL (12.9-16.9); Immature Granulocytes % 0.4 % (0-4); Lymphocytes # 1.7 K/mcL (0.6-4.6); Mean Corpuscular HGB Conc 32.3 g/dL (31.6-35.5); Mean Corpuscular Hemoglobin 30.6 pg (28.0-33.3); Mean Corpuscular Volume 94.6 fL (83.0-100.0); Mean Platelet Volume 10.1 fL (9.4-12.4); Monocytes # 1.1 K/mcL (0.0-1.3); Monocytes % 15.1 %; Neutrophils # 4.1 K/mcL (1.6-8.9); Platelet Count 210 K/mcL (140-400); Red Cell Distribution Width 14.4 % (11.5-14.5); Segmented Neutrophils % 56.2 %; White Blood Count 7.2 K/mcL (4.3-11.1)
[2021-01-25] MEDS: Nicotine 14 MG PATCH.TD24 TD SCH (09:35)
[2021-01-25] MEDS: cefTRIAXone 1,000 MG in 0.9 % Sodium Chloride Mini Bag 100 ML IVPB SCH (09:36)
[2021-01-25 12:00] LABS: BUN/Creatinine Ratio 17 (6-26); Blood Urea Nitrogen 18 mg/dL (8-23); Calcium 8.7 mg/dL (8.6-10.3); Carbon Dioxide 29 mEq/L (23-29); Chloride 99 mEq/L (98-107); Glucose 78 mg/dL (70-105); Magnesium 2.1 mg/dL (1.6-2.6); Osmolality,Calculated 281 (280-300); Potassium 4.1 mEq/L (3.5-5.1); Sodium 135 mEq/L (136-145); Thyroid Stimulating Hormone 1.376 mcIU/mL (0.340-5.600); eGFR For African Americans > 60 (> 60); eGFR For Non-African Americans > 60 (> 60)
[2021-01-25] MEDS: Lactulose Oral Soln 20 GM/30 ML UDC PO SCH ×2 (16:33→21:05)
[2021-01-25] MEDS: *HR* HYDROcodone/Acet 5/325 mg TABLET PO PRN (17:36)
[2021-01-25] MEDS ORDERED: Warfarin perPT PO PRN (18:00)
[2021-01-25] MEDS ORDERED: *HR* Warfarin 5 MG TABLET PO ONE (18:15)
[2021-01-26] MEDS: *HR* HYDROcodone/Acet 5/325 mg TABLET PO PRN ×2 (06:02→13:57)
[2021-01-26] MEDS: Nicotine 14 MG PATCH.TD24 TD SCH (08:57)
[2021-01-26] MEDS: Lactulose Oral Soln 20 GM/30 ML UDC PO SCH ×2 (08:57→20:37)
[2021-01-26] MEDS: cefTRIAXone 1,000 MG in 0.9 % Sodium Chloride Mini Bag 100 ML IVPB SCH (08:58)
[2021-01-26] MEDS ORDERED: Albuterol 2.5 MG/3 ML NEBULIZER IH PRN (13:54)
[2021-01-26 16:02] LABS: Basophils % 0.5 %; Eosinophils # 0.4 K/mcL (0.0-0.6); Eosinophils % 4.8 %; Hematocrit 45.4 % (37.5-50.1); Hemoglobin 14.6 g/dL (12.9-16.9); Immature Granulocytes % 0.1 % (0-4); Lymphocytes # 0.8 K/mcL (0.6-4.6); Lymphocytes % 10.3 %; Mean Corpuscular HGB Conc 32.2 g/dL (31.6-35.5); Mean Corpuscular Hemoglobin 30.8 pg (28.0-33.3); Mean Corpuscular Volume 95.8 fL (83.0-100.0); Mean Platelet Volume 9.6 fL (9.4-12.4); Monocytes # 0.9 K/mcL (0.0-1.3); Monocytes % 11.8 %; Neutrophils # 5.7 K/mcL (1.6-8.9); Platelet Count 212 K/mcL (140-400); Red Blood Count 4.74 M/mcL (4.19-5.50); Red Cell Distribution Width 14.3 % (11.5-14.5); Segmented Neutrophils % 72.5 %; White Blood Count 7.9 K/mcL (4.3-11.1)
[2021-01-26 16:08] LABS: INR 1.7; Prothrombin Time 18.5 Seconds (9.4-12.1)
[2021-01-26 16:20] LABS: BUN/Creatinine Ratio 11 (6-26); Blood Urea Nitrogen 13 mg/dL (8-23); Calcium 9.2 mg/dL (8.6-10.3); Carbon Dioxide 34 mEq/L (23-29); Chloride 99 mEq/L (98-107); Glucose 78 mg/dL (70-105); Osmolality,Calculated 281 (280-300); Potassium 4.5 mEq/L (3.5-5.1); Sodium 136 mEq/L (136-145); eGFR For African Americans > 60 (> 60); eGFR For Non-African Americans > 60 (> 60)
[2021-01-26] MEDS: carvediloL 6.25 MG TABLET PO SCH (17:22)
[2021-01-26] MEDS ORDERED: *HR* Warfarin 5 MG TABLET PO ONE (18:00)
[2021-01-26] MEDS: Budesonide/Formoterol 160/4.5 1 PUFF INH IH SCH (20:11)
[2021-01-26] MEDS ORDERED: traZODone 50 MG TABLET PO SCH (21:00)
[2021-01-27 03:23] LABS: Basophils % 0.5 %; Eosinophils # 0.5 K/mcL (0.0-0.6); Eosinophils % 6.9 %; Hematocrit 45.6 % (37.5-50.1); Hemoglobin 14.9 g/dL (12.9-16.9); Immature Granulocytes % 0.3 % (0-4); Lymphocytes # 1.1 K/mcL (0.6-4.6); Lymphocytes % 17.5 %; Mean Corpuscular HGB Conc 32.7 g/dL (31.6-35.5); Mean Corpuscular Hemoglobin 31.5 pg (28.0-33.3); Mean Corpuscular Volume 96.4 fL (83.0-100.0); Mean Platelet Volume 9.6 fL (9.4-12.4); Monocytes # 0.8 K/mcL (0.0-1.3); Monocytes % 12.8 %; Platelet Count 219 K/mcL (140-400); Red Blood Count 4.73 M/mcL (4.19-5.50); Red Cell Distribution Width 14.3 % (11.5-14.5); White Blood Count 6.5 K/mcL (4.3-11.1)
[2021-01-27 03:39] LABS: BUN/Creatinine Ratio 11 (6-26); Blood Urea Nitrogen 10 mg/dL (8-23); Calcium 9.5 mg/dL (8.6-10.3); Carbon Dioxide 35 mEq/L (23-29); Chloride 98 mEq/L (98-107); Glucose 103 mg/dL (70-105); Osmolality,Calculated 285 (280-300); Potassium 4.5 mEq/L (3.5-5.1); Sodium 138 mEq/L (136-145); eGFR For African Americans > 60 (> 60); eGFR For Non-African Americans > 60 (> 60)
[2021-01-27] MEDS ORDERED: Levalbuterol 1 PUFF INHALER IH PRN (07:30)
[2021-01-27] MEDS ORDERED: Bisacodyl 10 MG RECTAL SUPPOSITORY RC PRN (07:30)
[2021-01-27] MEDS ORDERED: Hyoscyamine SL 0.125 MG TAB.SUBL SL PRN (07:30)
[2021-01-27] MEDS: Budesonide/Formoterol 160/4.5 1 PUFF INH IH SCH (07:57)
[2021-01-27] MEDS: Ipratropium/Albuterol Neb 3 ML IH PRN (07:58)
[2021-01-27] MEDS ORDERED: methocarbamoL 750 MG TABLET PO SCH (08:00)
[2021-01-27] MEDS ORDERED: Finasteride 5 MG TABLET PO SCH (09:00)
[2021-01-27] MEDS ORDERED: Furosemide 20 MG TABLET PO SCH (09:00)
[2021-01-27] MEDS ORDERED: Fenofibrate 54 MG TABLET PO SCH (09:00)
[2021-01-27] MEDS: cefTRIAXone 1,000 MG in 0.9 % Sodium Chloride Mini Bag 100 ML IVPB SCH (09:11)
[2021-01-27] MEDS: carvediloL 6.25 MG TABLET PO SCH (09:11)
[2021-01-27] MEDS: Lactulose Oral Soln 20 GM/30 ML UDC PO SCH (09:12)
[2021-01-27] MEDS: Nicotine 14 MG PATCH.TD24 TD SCH (09:13)
[2021-01-27 10:30] VITALS: BP 113/70; PULSE 118; TEMP 98.3; O2SAT 93
[2021-01-27] MEDS: *HR* HYDROcodone/Acet 5/325 mg TABLET PO PRN (12:56)
[2021-01-27] MEDS ORDERED: *HR* Warfarin 5 MG TABLET PO ONE (18:00)
[2021-01-27] MEDS ORDERED: Gabapentin 300 MG CAPSULE PO SCH (21:00)
== END 2021-01-27 16:13 | disposition home health service (06) | DRG 441 ==
LOC: EMEROOARM 15:08 → 3ANU 15:08 → SUATTDRO 01-25 18:38
PROVIDERS: ADMIT Internal Medicine; ATTEND Internal Medicine

== ENCOUNTER 2021-06-23 15:12 | Inpatient (IN) ==
[2021-06-23] MEDS ORDERED: Furosemide 40 MG/4 ML VIAL IVP ONE (16:15)
[2021-06-23 17:07] LABS: Basophils # 0.1 K/mcL (0.0-0.2); Basophils % 0.6 %; Eosinophils # 0.6 K/mcL (0.0-0.6); Eosinophils % 7.3 %; Hematocrit 46.3 % (37.5-50.1); Hemoglobin 15.6 g/dL (12.9-16.9); Immature Granulocytes % 0.3 % (0-4); Lymphocytes # 1.5 K/mcL (0.6-4.6); Lymphocytes % 19.7 %; Mean Corpuscular HGB Conc 33.7 g/dL (31.6-35.5); Mean Corpuscular Hemoglobin 31.4 pg (28.0-33.3); Mean Corpuscular Volume 93.2 fL (83.0-100.0); Mean Platelet Volume 9.8 fL (9.4-12.4); Monocytes # 0.9 K/mcL (0.0-1.3); Monocytes % 11.9 %; Neutrophils # 4.6 K/mcL (1.6-8.9); Platelet Count 249 K/mcL (140-400); Red Blood Count 4.97 M/mcL (4.19-5.50); Red Cell Distribution Width 13.2 % (11.5-14.5); Segmented Neutrophils % 60.2 %; White Blood Count 7.7 K/mcL (4.3-11.1)
[2021-06-23] MEDS ORDERED: *HR* LORazepam 0.5 MG TABLET PO ONE (17:15)
[2021-06-23 17:16] LABS: INR 1.5; Prothrombin Time 16.4 Seconds (9.4-12.1)
[2021-06-23 17:18] LABS: Activated Partial Thrombo Time 42.6 Seconds (26.0-36.0)
[2021-06-23 17:30] LABS: Alanine Aminotransferase 27 Units/L (7-52); Albumin 4.3 g/dL (3.5-5.7); Albumin/Globulin Ratio 1.5 (1.1-2.2); Alkaline Phosphatase 57 Units/L (34-104); Aspartate Amino Transferase 29 Units/L (13-39); BUN/Creatinine Ratio 16 (6-26); Bilirubin,Total 0.8 mg/dL (0.3-1.0); Blood Urea Nitrogen 18 mg/dL (8-23); Calcium 8.8 mg/dL (8.6-10.3); Carbon Dioxide 34 mEq/L (23-29); Chloride 97 mEq/L (98-107); Globulin 2.8 g/dL (2.4-3.5); Glucose 94 mg/dL (70-105); Osmolality,Calculated 284 (280-300); Potassium 4.3 mEq/L (3.5-5.1); Sodium 136 mEq/L (136-145); Total Protein 7.1 g/dL (6.4-8.9); Troponin I < 0.03 ng/mL (< 0.04); eGFR For African Americans > 60 (> 60); eGFR For Non-African Americans > 60 (> 60)
[2021-06-23] MEDS ORDERED: predniSONE 20 MG TABLET PO ONE (18:40)
[2021-06-23] MEDS ORDERED: Ipratropium/Albuterol Neb 3 ML IH ONE (18:40)
[2021-06-23 20:40] LABS: Influenza A PCR Negative (Negative); Influenza B PCR Negative (Negative); Resp. Syncytial Virus PCR Negative (Negative); SARS-CoV-2 by PCR (In House) Negative (Negative)
[2021-06-23] MEDS ORDERED: Ondansetron 4 MG/2 ML VIAL IVP PRN (21:47)
[2021-06-23] MEDS ORDERED: Naloxone 0.4 MG/ML INJ IVP PRN (21:47)
[2021-06-23 23:11] LABS: Bilirubin,Urine Negative (Negative); Blood,Urine Negative (Negative); Clarity,Urine Clear (Clear); Color,Urine Light-Yellow (Yellow); Glucose,Urine (UA) Normal (Normal); Ketones,Urine Negative (Negative); Leukocyte Esterase,Urine Negative (Negative); Nitrite,Urine Negative (Negative); Protein,Urine Negative (Neg-Trace); Specific Gravity,Urine 1.011 (1.010-1.025); Urobilinogen,Urine Normal (Normal)
[2021-06-24] MEDS ORDERED: ALPRAZolam 1 MG TABLET PO ONE (00:05)
[2021-06-24] MEDS: hydrOXYzine pamoate 25 MG CAPSULE PO SCH ×2 (00:06→08:55)
[2021-06-24] MEDS: carvediloL 6.25 MG TABLET PO SCH ×3 (00:15→16:48)
[2021-06-24 01:19] LABS: INR 1.5; Prothrombin Time 16.9 Seconds (9.4-12.1)
[2021-06-24 01:31] LABS: Alanine Aminotransferase 24 Units/L (7-52); Albumin 4.1 g/dL (3.5-5.7); Albumin/Globulin Ratio 1.4 (1.1-2.2); Alkaline Phosphatase 55 Units/L (34-104); Aspartate Amino Transferase 24 Units/L (13-39); BUN/Creatinine Ratio 17 (6-26); Bilirubin,Direct 0.1 mg/dL (0.0-0.2); Bilirubin,Indirect 0.7 mg/dL (0.0-1.0); Bilirubin,Total 0.8 mg/dL (0.3-1.0); Blood Urea Nitrogen 19 mg/dL (8-23); Calcium 8.9 mg/dL (8.6-10.3); Carbon Dioxide 31 mEq/L (23-29); Chloride 97 mEq/L (98-107); Globulin 2.9 g/dL (2.4-3.5); Glucose 203 mg/dL (70-105); Magnesium 1.9 mg/dL (1.6-2.6); Osmolality,Calculated 290 (280-300); Potassium 4.3 mEq/L (3.5-5.1); Sodium 136 mEq/L (136-145); eGFR For African Americans > 60 (> 60); eGFR For Non-African Americans > 60 (> 60)
[2021-06-24 01:43] LABS: Thyroid Stimulating Hormone 1.633 mcIU/mL (0.340-5.600)
[2021-06-24 01:44] LABS: White Blood Count 8.2 K/mcL (4.3-11.1)
[2021-06-24 01:45] LABS: Basophils % 0.2 %; Eosinophils # 0.1 K/mcL (0.0-0.6); Eosinophils % 0.6 %; Hematocrit 47.1 % (37.5-50.1); Hemoglobin 15.9 g/dL (12.9-16.9); Immature Granulocytes % 0.2 % (0-4); Lymphocytes # 0.9 K/mcL (0.6-4.6); Lymphocytes % 10.6 %; Mean Corpuscular HGB Conc 33.8 g/dL (31.6-35.5); Mean Corpuscular Hemoglobin 30.9 pg (28.0-33.3); Mean Corpuscular Volume 91.5 fL (83.0-100.0); Mean Platelet Volume 10.3 fL (9.4-12.4); Monocytes # 0.1 K/mcL (0.0-1.3); Monocytes % 1.5 %; Neutrophils # 7.1 K/mcL (1.6-8.9); Platelet Count 221 K/mcL (140-400); Red Blood Count 5.15 M/mcL (4.19-5.50); Segmented Neutrophils % 86.9 %
[2021-06-24] MEDS ORDERED: Perflutren Lipid Microsphere 1.3 ML in 0.9 % Sodium Chloride 8.7 ML IVP PRN (07:16)
[2021-06-24] MEDS: Budesonide/Formoterol 80/4.5 1 PUFF INH IH SCH (07:52)
[2021-06-24] MEDS ORDERED: carvediloL 6.25 MG TABLET PO SCH (08:00)
[2021-06-24] MEDS: Acetaminophen 325 MG TABLET PO SCH (08:54)
[2021-06-24] MEDS: Fenofibrate 54 MG TABLET PO SCH (08:54)
[2021-06-24] MEDS: Finasteride 5 MG TABLET PO SCH (08:55)
[2021-06-24] MEDS: predniSONE 20 MG TABLET PO SCH (08:55)
[2021-06-24] MEDS ORDERED: Furosemide 20 MG TABLET PO SCH (09:00)
[2021-06-24] MEDS ORDERED: *HR* Metformin 500 MG TABLET PO SCH (09:00)
[2021-06-24] MEDS ORDERED: Isovue-370 500 ML BOTTLE IVP ONE (13:24)
[2021-06-24] MEDS ORDERED: *HR* Heparin 5,000 UNIT/ML VIAL IVP ONE (13:26)
[2021-06-24] MEDS ORDERED: *HR* Heparin 5,000 UNIT/ML VIAL IVP PRN ×2 (13:26)
[2021-06-24 14:21] LABS: Hematocrit 43.9 % (37.5-50.1); Hemoglobin 14.5 g/dL (12.9-16.9); Mean Corpuscular Hemoglobin 30.8 pg (28.0-33.3); Mean Corpuscular Volume 93.2 fL (83.0-100.0); Mean Platelet Volume 10.1 fL (9.4-12.4); Platelet Count 205 K/mcL (140-400); Red Blood Count 4.71 M/mcL (4.19-5.50); Red Cell Distribution Width 12.9 % (11.5-14.5); White Blood Count 9.1 K/mcL (4.3-11.1)
[2021-06-24 14:22] LABS: Heparin anti-factor XA UFH < 0.04 IU/mL (0.30-0.70); INR 1.4; Prothrombin Time 15.5 Seconds (9.4-12.1)
[2021-06-24] MEDS: Heparin 25,000UNIT/250ML 1/2NS 25,000 UNIT/250 ML IV.SOLN IVC SCH (14:28)
[2021-06-24 14:32] LABS: D-Dimer 1413 ng/mLFEU (0-500)
[2021-06-24] MEDS: hydrOXYzine pamoate 25 MG CAPSULE PO PRN (16:48)
[2021-06-24] MEDS ORDERED: Warfarin perPT PO PRN (18:00)
[2021-06-24] MEDS ORDERED: *HR* Warfarin 7.5 MG TABLET PO ONE (18:00)
[2021-06-24] MEDS: *HR* OxyCODONE/APAP 5/325 TABLET PO PRN (18:29)
[2021-06-24] MEDS: Gabapentin 300 MG CAPSULE PO SCH (20:45)
[2021-06-24] MEDS: traZODone 50 MG TABLET PO SCH (20:46)
[2021-06-24] MEDS: *HR* HYDROcodone/Acet 5/325 mg TABLET PO PRN (20:46)
[2021-06-24] MEDS: Nicotine 21 MG PATCH.TD24 TD SCH (21:30)
[2021-06-25 05:29] LABS: Hematocrit 45.4 % (37.5-50.1); Mean Corpuscular Hemoglobin 31.7 pg (28.0-33.3); Mean Platelet Volume 10.1 fL (9.4-12.4); Platelet Count 185 K/mcL (140-400); Red Blood Count 4.73 M/mcL (4.19-5.50); Red Cell Distribution Width 13.1 % (11.5-14.5); White Blood Count 11.9 K/mcL (4.3-11.1)
[2021-06-25 05:31] LABS: Heparin anti-factor XA UFH 0.67 IU/mL (0.30-0.70); INR 1.3; Prothrombin Time 14.1 Seconds (9.4-12.1)
[2021-06-25 05:44] LABS: BUN/Creatinine Ratio 22 (6-26); Blood Urea Nitrogen 26 mg/dL (8-23); Calcium 8.9 mg/dL (8.6-10.3); Carbon Dioxide 36 mEq/L (23-29); Chloride 100 mEq/L (98-107); Glucose 110 mg/dL (70-105); Osmolality,Calculated 291 (280-300); Potassium 4.6 mEq/L (3.5-5.1); Sodium 138 mEq/L (136-145); eGFR For African Americans > 60 (> 60); eGFR For Non-African Americans > 60 (> 60)
[2021-06-25] MEDS: Budesonide/Formoterol 80/4.5 1 PUFF INH IH SCH (07:40)
[2021-06-25] MEDS ORDERED: Furosemide 40 MG/4 ML VIAL IVP SCH (09:00)
[2021-06-25] MEDS: predniSONE 20 MG TABLET PO SCH (10:01)
[2021-06-25] MEDS: Acetaminophen 325 MG TABLET PO SCH (10:01)
[2021-06-25] MEDS: *HR* OxyCODONE/APAP 5/325 TABLET PO PRN ×2 (10:01→16:46)
[2021-06-25] MEDS: Fenofibrate 54 MG TABLET PO SCH (10:02)
[2021-06-25] MEDS: Heparin 25,000UNIT/250ML 1/2NS 25,000 UNIT/250 ML IV.SOLN IVC SCH (10:02)
[2021-06-25] MEDS: Finasteride 5 MG TABLET PO SCH (10:02)
[2021-06-25] MEDS: carvediloL 6.25 MG TABLET PO SCH ×2 (10:02→16:46)
[2021-06-25] MEDS: Nicotine 21 MG PATCH.TD24 TD SCH (10:02)
[2021-06-25] MEDS ORDERED: *HR* Dextrose 50 % in Water (Syg) 50 ML SYRINGE IVP PRN (16:51)
[2021-06-25] MEDS ORDERED: D5% in Water 1,000 ML IVC PRN (16:51)
[2021-06-25] MEDS ORDERED: Dextrose 4 GM Chewable Tablets PO PRN ×2 (16:51)
[2021-06-25] MEDS: Insulin LISPRO 300 UNITS/3 ML VIAL SUBQ SCH ×2 (17:13→20:01)
[2021-06-25] MEDS: Albuterol 2.5 MG/3 ML NEBULIZER IH PRN (17:19)
[2021-06-25] MEDS ORDERED: *HR* Warfarin 5 MG TABLET PO ONE (18:00)
[2021-06-25] MEDS: Gabapentin 300 MG CAPSULE PO SCH (19:45)
[2021-06-25] MEDS: traZODone 50 MG TABLET PO SCH (19:46)
[2021-06-25] MEDS: *HR* HYDROcodone/Acet 5/325 mg TABLET PO PRN (19:57)
[2021-06-25 20:43] LABS: Estimated Average Glucose 126 mg/dl
[2021-06-26] MEDS: Albuterol 2.5 MG/3 ML NEBULIZER IH PRN ×2 (01:43→15:13)
[2021-06-26 01:55] LABS: Basophils % 0.3 %; Eosinophils % 0.3 %; Hematocrit 42.4 % (37.5-50.1); Hemoglobin 13.9 g/dL (12.9-16.9); Immature Granulocytes % 0.8 % (0-4); Lymphocytes # 1.3 K/mcL (0.6-4.6); Lymphocytes % 13.2 %; Mean Corpuscular HGB Conc 32.8 g/dL (31.6-35.5); Mean Corpuscular Hemoglobin 31.4 pg (28.0-33.3); Mean Corpuscular Volume 95.9 fL (83.0-100.0); Mean Platelet Volume 9.6 fL (9.4-12.4); Monocytes # 0.9 K/mcL (0.0-1.3); Monocytes % 9.3 %; Neutrophils # 7.4 K/mcL (1.6-8.9); Platelet Count 171 K/mcL (140-400); Red Blood Count 4.42 M/mcL (4.19-5.50); Red Cell Distribution Width 13.2 % (11.5-14.5); Segmented Neutrophils % 76.1 %; White Blood Count 9.8 K/mcL (4.3-11.1)
[2021-06-26] MEDS: hydrOXYzine pamoate 25 MG CAPSULE PO PRN ×2 (01:59→11:10)
[2021-06-26 03:03] LABS: INR 1.4; Prothrombin Time 15.8 Seconds (9.4-12.1)
[2021-06-26] MEDS: Heparin 25,000UNIT/250ML 1/2NS 25,000 UNIT/250 ML IV.SOLN IVC SCH (06:15)
[2021-06-26] MEDS: Budesonide/Formoterol 80/4.5 1 PUFF INH IH SCH (07:43)
[2021-06-26] MEDS: Acetaminophen 325 MG TABLET PO SCH (09:14)
[2021-06-26] MEDS: Nicotine 21 MG PATCH.TD24 TD SCH (09:14)
[2021-06-26] MEDS: *HR* OxyCODONE/APAP 5/325 TABLET PO PRN ×2 (09:14→17:04)
[2021-06-26] MEDS: Fenofibrate 54 MG TABLET PO SCH (09:14)
[2021-06-26] MEDS: predniSONE 20 MG TABLET PO SCH (09:15)
[2021-06-26] MEDS: carvediloL 6.25 MG TABLET PO SCH ×2 (09:15→17:03)
[2021-06-26] MEDS: Finasteride 5 MG TABLET PO SCH (09:15)
[2021-06-26] MEDS: Insulin LISPRO 300 UNITS/3 ML VIAL SUBQ SCH ×4 (09:15→20:10)
[2021-06-26 10:21] LABS: BUN/Creatinine Ratio 24 (6-26); Blood Urea Nitrogen 28 mg/dL (8-23); Calcium 9.1 mg/dL (8.6-10.3); Carbon Dioxide 39 mEq/L (23-29); Chloride 100 mEq/L (98-107); Glucose 114 mg/dL (70-105); Osmolality,Calculated 298 (280-300); Potassium 4.3 mEq/L (3.5-5.1); Sodium 141 mEq/L (136-145); eGFR For African Americans > 60 (> 60); eGFR For Non-African Americans > 60 (> 60)
[2021-06-26] MEDS ORDERED: *HR* Warfarin 10 MG TABLET PO ONE (18:00)
[2021-06-26] MEDS: Gabapentin 300 MG CAPSULE PO SCH (20:07)
[2021-06-26] MEDS: traZODone 50 MG TABLET PO SCH (20:08)
[2021-06-26] MEDS: *HR* HYDROcodone/Acet 5/325 mg TABLET PO PRN (21:36)
[2021-06-27 02:54] LABS: Prothrombin Time 22.5 Seconds (9.4-12.1)
[2021-06-27 03:05] LABS: BUN/Creatinine Ratio 25 (6-26); Blood Urea Nitrogen 26 mg/dL (8-23); Calcium 9.1 mg/dL (8.6-10.3); Carbon Dioxide 34 mEq/L (23-29); Chloride 101 mEq/L (98-107); Glucose 112 mg/dL (70-105); Osmolality,Calculated 290 (280-300); Potassium 4.6 mEq/L (3.5-5.1); Sodium 137 mEq/L (136-145); eGFR For African Americans > 60 (> 60); eGFR For Non-African Americans > 60 (> 60)
[2021-06-27] MEDS: Heparin 25,000UNIT/250ML 1/2NS 25,000 UNIT/250 ML IV.SOLN IVC SCH (04:11)
[2021-06-27] MEDS: Budesonide/Formoterol 80/4.5 1 PUFF INH IH SCH (07:28)
[2021-06-27] MEDS: Insulin LISPRO 300 UNITS/3 ML VIAL SUBQ SCH ×3 (07:38→17:16)
[2021-06-27] MEDS: Fenofibrate 54 MG TABLET PO SCH (08:19)
[2021-06-27] MEDS: carvediloL 6.25 MG TABLET PO SCH ×2 (08:19→17:28)
[2021-06-27] MEDS: Finasteride 5 MG TABLET PO SCH (08:19)
[2021-06-27] MEDS: Acetaminophen 325 MG TABLET PO SCH (08:19)
[2021-06-27] MEDS: predniSONE 20 MG TABLET PO SCH (08:19)
[2021-06-27] MEDS: Nicotine 21 MG PATCH.TD24 TD SCH (08:20)
[2021-06-27] MEDS ORDERED: Furosemide 40 MG TABLET PO SCH (09:00)
[2021-06-27 10:35] VITALS: BP 126/74; PULSE 90; TEMP 97.5; O2SAT 96
[2021-06-27] MEDS: *HR* HYDROcodone/Acet 5/325 mg TABLET PO PRN ×2 (10:49→17:28)
[2021-06-27] MEDS ORDERED: *HR* Warfarin 7.5 MG TABLET PO ONE (18:00)
== END 2021-06-27 17:46 | disposition home health service (06) | DRG 175 ==
LOC: 2ANU 15:12 → EMEROOARM 15:12 → SUATTDRO 20:58 → 2ANU 21:48
PROVIDERS: ADMIT Internal Medicine; ATTEND General Practice